=== PATIENT | male | born 1965 | race Caucasian/White ===

== ENCOUNTER 2023-06-11 07:55 | Outpatient (OUT) | payer BC, SELFPAY ==
[2023-06-11 08:14] LABS: Basophils Absolute Auto 0.1 10^3/uL (0.0-0.1); Basophils Percent Auto 0.9 % (0.2-2.0); Eosinophils Absolute Auto 0.4 10^3/uL (0.0-0.7); Eosinophils Percent Auto 5.3 % (0.9-7.0); Hematocrit 40.3 % (42.0-54.0); Hemoglobin 14.1 g/dL (14.0-18.0); Immature Granulocytes Abs Auto 0.01 10^3/uL (0.00-0.03); Immature Granulocytes Pct Auto 0.1 % (0.0-0.5); Lymphocytes Absolute Auto 2.4 10^3/uL (1.2-3.8); Lymphocytes Percent Auto 31.2 % (20.5-60.0); Mean Corpuscular Hemoglobin 31.9 pg (25.9-34.0); Mean Corpuscular Volume 91.2 fL (80.0-94.0); Mean Platelet Volume 10.2 fL (9.5-13.5); Monocytes Absolute Auto 0.8 10^3/uL (0.3-0.8); Monocytes Percent Auto 9.7 % (1.7-12.0); Neutrophils Absolute Auto 4.1 10^3/uL (1.4-6.5); Neutrophils Percent Auto 52.8 % (43.0-75.0); Platelet Count 172 10^3/uL (150-450); Red Blood Count 4.42 10^6/uL (4.70-6.10); Red Cell Distribution Width 13.4 % (11.0-15.0); White Blood Count 7.8 10^3/uL (4.0-11.0)
[2023-06-11 09:19] LABS: Prostate Specific Antigen Scrn 1.24 ng/mL (<=4.00)
[2023-06-11 09:22] LABS: Alanine Aminotransferase 23 U/L (16-63); Albumin Globulin Ratio 1.2; Albumin Level 3.7 g/dL (3.4-5.0); Alkaline Phosphatase 89 U/L (46-116); Anion Gap 10.4; Aspartate Amino Transferase 17 U/L (15-37); BUN Creatinine Ratio 13.6; Bilirubin Total 0.4 mg/dL (0.2-1.0); Calcium 8.5 mg/dL (8.5-10.1); Chloride 104 mmol/L (98-107); Chol HDL Ratio 4.9; Cholesterol 181 mg/dL (<=200); Estimated GFR (African America >60 (>=60); Estimated GFR (Non-African Ame >60 (>=60); Globulin 3.2 g/dL; Glucose 113 mg/dL (74-106); HDL Cholesterol 37 mg/dL (40-60); Potassium 4.4 mmol/L (3.5-5.1); Sodium 138 mmol/L (136-145); Total Protein 6.9 g/dL (6.4-8.2); Triglycerides 123 mg/dL (<=150); VLDL CHOLESTEROL 24.6 mg/dL
== END 2023-06-11 07:56 | disposition home or self-care (01) ==
LOC: LAB 07:59
PROVIDERS: PCP Internal Medicine; Visit Provider Family Medicine Adult Medicine
DX: Z00.00 Encounter for general adult medical examination without abnormal findings (principal); Z12.5 Encounter for screening for malignant neoplasm of prostate
CPT/HCPCS: 36415; 80053; 80061; 85025; G0103

== ENCOUNTER 2024-01-29 09:04 | Outpatient (OUT) | payer BC, SELFPAY ==
--- NOTE | 2024-01-29 09:51 | US_ITS ---
[place] [id number] Patient Name: UMAIR HANCOCK MRN: [id number] date: 1965 Sex: M Assigned Patient Location: MRI Current Patient Location: MRI Accession/Order Number: [id number] Exam Date: 01/29/2024 11:00 Report Date: 01/29/2024 13:56 At the request of: CHINYERE YOUNGBLOOD Procedure: US carotid duplex BI EXAMINATION: US carotid duplex BI HISTORY: bruit of right carotid artery R09.89 COMPARISON: No relevant comparison available. TECHNIQUE: Duplex Doppler ultrasound analysis of carotid and vertebral arteries. . Bilateral carotid arterial duplex examination was performed using B-mode, color flow and spectral analysis. Carotid stenosis is reported according to validated velocity parameters, similar to NASCET criteria. FINDINGS: RIGHT CAROTID ARTERY Mild atherosclerotic plaque Subclavian: PSV: 190.4 cm/s cm/s EDV: 19.1 cm/s cm/s CCA: Prox: PSV: 104.3 cm/s cm/s EDV: 30.0 cm/s cm/s Mid: PSV: 61.2 cm/s cm/s EDV: 14.4 cm/s cm/s Distal: PSV: 75.8 cm/s cm/s EDV: 16.0 cm/s cm/s BULB: PSV: 53.7 cm/s cm/s EDV: 14.2 cm/s cm/s ICA: Prox: PSV: 64.6 cm/s cm/s EDV: 12.8 cm/s cm/s Mid: PSV: 69.8 cm/s cm/s EDV: 28.3 cm/s cm/s Distal: PSV: 101.6 cm/s cm/s EDV: 35.4 cm/s cm/s ECA: PSV: 95.1 cm/s cm/s EDV: 16.0 cm/s cm/s VERTEBRAL: PSV: 42.8 cm/s cm/s EDV: 13.1 cm/s cm/s, antegrade ICA/CCA ratio: PSV: 1.3 EDV: 2.2 LEFT CAROTID ARTERY mild atherosclerotic plaque Subclavian: PSV: 148.5 cm/s cm/s EDV: 6.7 cm/s CCA: Prox: PSV: 92.7 cm/s cm/s EDV: 25.3 cm/s Mid: PSV: 75.8 cm/s cm/s EDV: 22.5 cm/s Distal: PSV: 67.7 cm/s cm/s EDV: 25.7 cm/s BULB: PSV: 64.5 cm/s cm/s EDV: 17.6 cm/s ICA: Prox: PSV: 83.8 cm/s cm/s EDV: 28.9 cm/s Mid: PSV: 72.5 cm/s cm/s EDV: 28.9 cm/s Distal: PSV: 80.6 cm/s cm/s EDV: 27.3 cm/s ECA: PSV: 61.2 cm/s cm/s EDV: 11.1 cm/s VERTEBRAL: PSV: 43.9 cm/s cm/s EDV: 10.9 cm/s , antegrade ICA/CCA ratio: PSV: 1.1 EDV: 1.3 US/US carotid duplex BI IMPRESSION: 0-49% flow stenosis bilateral internal carotid arteries Spectral Doppler US Thresholds (Reference: Tang EG, et al. Radiology 2000; 214:247-252) Stenosis (%) PSV (cm/sec) VICA/VCCA 0-49 <150 <2.5 50-69 150-225 2.5-4.0 >70 >225 >4.0 Electronically authenticated by: YAS MEJIAS Date: 01/29/2024 13:56
--- NOTE | 2024-01-29 09:52 | MR_ITS ---
The [address] [address] Patient Name: UMAIR HANCOCK MRN: [id number] date: 1965 Sex: M Assigned Patient Location: MRI Current Patient Location: MRI Accession/Order Number: [id number] Exam Date: 01/29/2024 10:00 Report Date: 01/29/2024 13:30 At the request of: CHINYERE YOUNGBLOOD Procedure: MR angio head wo con MR angio head wo con HISTORY: bruit of right carotid artery R09.89 COMPARISON: None. TECHNIQUE: 3D unwo-fo-haumtr angiography was performed in the axial plane on the [place] without IV gadolinium. The exam was tailored for assessment of the [place] only. Only limited sequences were obtained of the rest of the brain. FINDINGS: Carotids: Negative. Anterior/posterior communicating arteries: Negative. Anterior cerebral arteries: Negative. Middle cerebral arteries: Negative. Posterior cerebral arteries: Negative. Intracranial vertebral arteries: Negative. Basilar artery: Negative. PICA/AICA/SCA: Negative. Non-angiographic Findings: None significant. MR/MR angio head wo con IMPRESSION: 1. No evidence of large vessel occlusion, flow-limiting intracranial stenosis or aneurysm. Electronically authenticated by: ROMA KIRKLAND Date: 01/29/2024 13:30
== END 2024-01-29 09:05 | disposition home or self-care (01) ==
LOC: MRI 09:04
PROVIDERS: PCP Internal Medicine; Visit Provider Internal Medicine
DX: R09.89 Other specified symptoms and signs involving the circulatory and respiratory systems (principal); R20.0 Anesthesia of skin; R20.2 Paresthesia of skin; R20.8 Other disturbances of skin sensation
CPT/HCPCS: 70544; 70551; 93880

== ENCOUNTER 2024-02-01 10:09 | Outpatient (OUT) | payer BC, SELFPAY ==
[2024-02-01 07:09] LABS: Basophils Absolute Auto 0.1 10^3/uL (0.0-0.1); Eosinophils Absolute Auto 0.3 10^3/uL (0.0-0.7); Eosinophils Percent Auto 3.6 % (0.9-7.0); Hematocrit 38.8 % (42.0-54.0); Hemoglobin 13.1 g/dL (14.0-18.0); Immature Granulocytes Abs Auto 0.03 10^3/uL (0.00-0.03); Immature Granulocytes Pct Auto 0.4 % (0.0-0.5); Lymphocytes Absolute Auto 2.3 10^3/uL (1.2-3.8); Lymphocytes Percent Auto 28.2 % (20.5-60.0); Mean Corpuscular HGB Conc 33.8 g/dL (29.9-35.2); Mean Corpuscular Hemoglobin 31.3 pg (25.9-34.0); Mean Corpuscular Volume 92.6 fL (80.0-94.0); Mean Platelet Volume 9.5 fL (9.5-13.5); Monocytes Absolute Auto 0.8 10^3/uL (0.3-0.8); Monocytes Percent Auto 10.2 % (1.7-12.0); Neutrophils Absolute Auto 4.6 10^3/uL (1.4-6.5); Neutrophils Percent Auto 56.6 % (43.0-75.0); Platelet Count 186 10^3/uL (150-450); Red Blood Count 4.19 10^6/uL (4.70-6.10); Red Cell Distribution Width 12.9 % (11.0-15.0); White Blood Count 8.1 10^3/uL (4.0-11.0)
[2024-02-01 07:23] LABS: Alanine Aminotransferase 31 U/L (16-63); Albumin Globulin Ratio 0.9; Albumin Level 3.3 g/dL (3.4-5.0); Alkaline Phosphatase 105 U/L (46-116); Anion Gap 13.5; Aspartate Amino Transferase 18 U/L (15-37); BUN Creatinine Ratio 14.8; Bilirubin Total 0.5 mg/dL (0.2-1.0); Calcium 8.9 mg/dL (8.5-10.1); Carbon Dioxide 25.8 mmol/L (21.0-32.0); Chloride 102 mmol/L (98-107); Chol HDL Ratio 4.1; Cholesterol 189 mg/dL (<=200); Estimated GFR (African America >60 (>=60); Estimated GFR (Non-African Ame >60 (>=60); Globulin 3.7 g/dL; Glucose 103 mg/dL (74-106); HDL Cholesterol 46 mg/dL (40-60); LDL Cholesterol Calculated 128.4 mg/dL; Potassium 4.3 mmol/L (3.5-5.1); Sodium 137 mmol/L (136-145); Triglycerides 73 mg/dL (<=150); VLDL CHOLESTEROL 14.6 mg/dL
== END 2024-02-01 10:10 | disposition home or self-care (01) ==
LOC: LAB 02-02 10:09
PROVIDERS: PCP Internal Medicine; Visit Provider Internal Medicine
DX: R09.89 Other specified symptoms and signs involving the circulatory and respiratory systems (principal); R20.0 Anesthesia of skin; R20.2 Paresthesia of skin; R20.8 Other disturbances of skin sensation
CPT/HCPCS: 36415; 80053; 80061; 85025

== ENCOUNTER 2024-02-12 10:05 | Outpatient (OUT) | payer BC, SELFPAY ==
--- NOTE | 2024-02-12 10:14 | XR_ITS ---
The [address] [address] Patient Name: UMAIR HANCOCK MRN: [id number] date: 1965 Sex: M Assigned Patient Location: [facility] Current Patient Location: Accession/Order Number: [id number] Exam Date: 02/12/2024 10:20 Report Date: 02/14/2024 05:20 At the request of: CHINYERE YOUNGBLOOD Procedure: XR cervical spine w flex/ext EXAMINATION: XR cervical spine w flex/ext HISTORY: Neck Pain M54.2 , right hand numbness, stinging sensation posterior neck COMPARISON: No relevant comparison available. FINDINGS: BONES: No significant spondylosis, scoliosis, fracture, or visible bony lesion. No change in alignment during flexion and extension. DISC SPACES: Mild/moderate narrowing C5-C6. Mild uncovertebral joint spurring causing mild foramen narrowing C5-C6, C6-C7. PARASPINOUS: Negative. No paraspinous abnormality is seen. OTHER: Negative. XR/XR cervical spine w flex/ext IMPRESSION: 1. Mild degenerative changes of cervical spine, predominantly involving C5-C6 and C6-7. Electronically authenticated by: ISRAEL MOHR Date: 02/14/2024 05:20
== END 2024-02-12 10:06 | disposition home or self-care (01) ==
PROVIDERS: PCP Internal Medicine; Visit Provider Internal Medicine
DX: M54.2 Cervicalgia (principal)
CPT/HCPCS: 72052

== ENCOUNTER 2024-03-03 20:48 | Inpatient (IN) | payer BC, SELFPAY ==
[2024-03-03] VITALS (16 sets, daily range): BP systolic 165–198; BP diastolic 94–104; PULSE 67–87; TEMP 36.6; O2SAT 95–98; BMI 18.7
--- OUTSIDE RECORDS SUMMARY | 2024-03-03 20:56 | XMS_ITS | CCD ---
Author Organization [facility] Care Team Providers Care Emergency Man Name Role Phone DR HARVEY STOVER Admitting Unavailable RYLIE, DR WHITLOCK Attending Unavailable RYLIE, DR WHITLOCK Primary Care Unavailable RYLIE, DR WHITLOCK Consulting Unavailable Lali Ramon Unavailable Harvey Stover Unavailable REGULO HENRY Attending Unavailable REGULO HENRY Attending Unavailable DO Harvey Stover Primary Care Provider [phone] DO Harvey Stover Attending Provider [phone] Harvey Stover Admitting Unavailable Harvey Stover Attending Unavailable Harvey Stover Primary Care Unavailable Medications Current Medications Medication Drug Class(es) Dates Sig (Normalized) Sig (Original) gabapentin 300 mg oral capsule (5 sources) Anti-epileptic Agent Start: 12-21-2023 take 300 mg by mouth twice daily Gabapentin Active 300 MG PO Twice daily December 21, 2023 12:00am Start: 12-25-2022 take 1 capsule by mo uth twice daily Gabapentin 300 MG 1 capsule Orally twice daily Dec, Active Start: 12-25-2022 take 1 capsule by mo uth once at bedtime Gabapentin 300 MG 1 capsule Orally q HS for 30 days Dec, Active nabumetone 750 mg oral tablet (5 sources) Nonsteroidal Anti-inflammatory Drug Start: 12-21-2023 take 750 mg by mouth twice daily Nabumetone Active 750 MG PO Twice daily December 21, 2023 12:00am take 750 mg by mouth twice daily Nabumetone 750 MG as directed Orally Twice a day Active predniSONE 20 mg oral tablet (4 sources) Start: 01-12-2024 Prednisone Act nydia 20 MG PO As Directed January 12, 2024 12:00am 1 tab tid w/ food x 3 days, then bid w/ food x 3 days, then qd w/ food x 3 days Start: 12-25-2022 predniSONE 20 MG 1 tablet Orally tid w/ food x 3 days, then bid w/ food x 3 days, then qd w/ food x 3 days for 9 days Dec, Not-Taking rosuvastatin calcium 20 mg oral tablet (1 source) HMG-CoA Reductase Inhibitor Start: 01-12-2024 take 20 mg by mouth once daily Rosuvastatin Active 20 MG PO Daily January 12, 2024 12:00am sildenafil 100 mg oral tablet (7 sources) Phosphodiesterase 5 Inhibitor Start: 12-21-2023 End: 12-21-2023 take 0.5-1 tablets by mouth once daily as needed Sildenafil Active 100 MG PO Once 6 December 21, 2023 1:23pm 1/2 to 1 tablet Orally Once a day, PRN ED Start: 12-25-2022 take 0.5-1 tablets b y mouth once daily as needed Sildenafil Citrate 100 MG 1/2 to 1 tablet Orally Once a day, PRN ED for 30 days Dec, Active Completed/Discontinued Medications Medication Drug Class(es) Dates Sig (Normalized) Sig (Original) penicillin v potassium 500 mg oral tablet (4 sources) Start: 05-16-2022 take 1 tablet by mouth every twelve hours Penicillin V Potassium 500 MG 1 tablet Orally Twice a day for 10 day(s) May, Not-Taking Problems Active Problems Problem Classification Problem Date Documented Date Episodic/Chronic Chronic obstructive pulmonary disease and bronchiectasis (5 sources) Mucopurulent chronic bronchitis; Translations: [Mucopurulent chronic bronchitis] Chronic Essential hypertension (2 sources) Hypertensive disorder; Translations: [Essential (primary) hypertension] 01-12-2024 Chronic Immunizations and screening for infectious disease (1 source) Encounter for immunization; Translations: [ENCOUNTER FOR IMMUNIZATION] Onset: 07-05-2021 Episodic Inflammation; infection of eye (except that caused by tuberculosis or sexually transmitteddisease) (2 sources) Unspecified optic neuritis; Translations: [Unspecified optic neuritis] Onset: 03-19-2023 Chronic Other aftercare (1 source) 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; Translations: [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 CURRENT DRUG THERAPY] Onset: 07-05-2021 Episodic Other circulatory disease (1 source) Carotid bruit; Translations: [Other specified symptoms and signs involving the circulatory and respiratory systems] 01-12-2024 Episodic Other circulatory disease (2 sources) Other specified symptoms and signs involving the circulatory and respiratory systems; Translations: [Other symptoms involving cardiovascular system] Onset: 01-22-2024 01-12-2024 Episodic Other male genital disorders (3 sources) Erectile dysfunction co-occurrent and due to arterial insufficiency; Translations: [Erectile dysfunction due to arterial insufficiency] Chronic Other male genital disorders (2 sources) Erectile dysfunction due to arterial insufficiency Chronic Other nervous system disorders (1 source) Dysesthesia of face; Translations: [Other disturbances of skin sensation] 01-12-2024 Episodic Other nervous system disorders (1 source) Paresthesia of upper limb; Translations: [Anesthesia of skin] 01-12-2024 Episodic Other nervous system disorders (1 source) Paresthesia of lower extremity; Translations: [Anesthesia of skin] 01-12-2024 Episodic Other nervous system disorders (3 sources) Anesthesia of skin; Translations: [Disturbance of skin sensation] Onset: 01-22-2024 01-12-2024 Episodic Other nervous system disorders (1 source) Paresthesia of skin; Translations: [Paresthesia of skin] Onset: 01-22-2024 Episodic Other nervous system disorders (1 source) Other disturbances of skin sensation; Translations: [Other disturbances of skin sensation] Onset: 01-22-2024 Episodic Other screening for suspected conditions (not mental disorders or infectious disease) (2 sources) Encounter for screening for malignant neoplasm of prostate; Translations: [Encounter for screening for malignant neoplasm of colon] Episodic Residual codes; unclassified (1 source) Pain, unspecified; Translations: [PAIN UNSPECIFIED] Onset: 07-05-2021 Episodic Rheumatoid arthritis and related disease (11 sources) Rheumatoid arthritis of wrist; Translations: [Rheumatoid arthritis with rheumatoid factor of right wrist without organ or systems involvement] Chronic Spondylosis; intervertebral disc disorders; other back problems (11 sources) Cervical spondylosis; Translations: [Other spondylosis with radiculopathy, cervical region] Chronic Spondylosis; intervertebral disc disorders; other back problems (3 sources) Low back pain; Translations: [Radiculopathy, lumbar region] 01-12-2024 Episodic Substance-related disorders (7 sources) Nicotine dependence; Translations: [Nicotine dependence, cigarettes, uncomplicated] Chronic Unclassified (1 source) Low back pain, unspecified; Translations: [Low back pain, unspecified] Onset: 03-19-2023 Viral infection (4 sources) COVID-19; Translations: [COVID-19] Onset: 07-03-2021 Past or Other Problems Problem Classification Problem Date Documented Da te Episodic/Chronic Disorders of teeth and jaw (1 source) Periapical abscess without sinus Onset: 05-16-2022 Resolved: 05-16-2022 Episodic Unclassified (1 source) Low back pain, unspecified; Translations: [Low back pain, unspecified] Onset: 03-19-2023 Results Test Name Value Interpretation Reference Range Facility ECG 12 lead ECGon 01-22-2024 ECG 12 lead ECG [facility] Main [place] [id number] Electrocardiograph Report Signed Patient: Jordan Aguilar MR#: [id number] : 1965 Acct:[id number] Age/Sex: 58 / M ADM Date: 01/22/24 Loc: Room: Type: [facility] Attending Dr: Harvey Stover DO Ordering Provider: Harvey Stover DO Date of Service: 01/22/24 ECG/ECG 12 lead ECG: R20.8 - Other disturbances of skin sensation Copies to: Test Reason : Blood Pressure : / mmHG Vent. Rate : 081 BPM Atrial Rate : 081 BPM P-R Int : 148 ms QRS Dur : 104 ms QT Int : 390 ms P-R-T Axes : 084 059 074 degrees QTc Int : 453 ms Normal sinus rhythm Incomplete right bundle branch block Borderline ECG No previous ECGs available Confirmed by Harry Auguste ([id number]) on 01/23/2024 11:28:13 AM Referred By: RYLIE Electronically Signed By:Harry Auguste Transcribed By: MUS Signed By Harry Auguste MD 01/23/24 1128 Normal [facility] echo transthoracicon [facility] echo transthoracic [facility] Main [address] [address] Echocardiogram Signed Patient: Jordan Aguilar MR#: [id number] : 1965 Acct:[id number] Age/Sex: 58 / M ADM Date: 01/22/24 Loc: Room: Type: [facility] Attending Dr: Harvey Stover DO Ordering Provider: Harvey Stover DO Date of Service: 01/22/24 [facility] echo transthoracic: R20.8 - Other disturbances of skin sensation Copies to: DO Edelmira Flores MD BSA: 1.7 m2 BP: 157/101 mmHg HR: 77 Reason For Study: R20.8 - Other disturbances of skin sensation, Numbness of right arrm and right leg History: Smoker, COVID Interpretation Summary Ejection Fraction = 60-65%. The left ventricular wall motion is normal. There is trace tricuspid regurgitation. Atrial septum appears to be intact and there is no evidence of flow across the atrial septum either by colorflow Doppler or by agitated saline. There is no comparison study available. Procedure/Quality: A two-dimensional transthoracic echocardiogram with color flow, Doppler and injection of aggitated saline was performed. The study was technically good in quality. Left Ventricle: The left ventricular size is normal. The left ventricular thickness is normal. Ejection Fraction = 60-65%. The left ventricular wall motion is normal. Left Atrium: The left atrium appears normal in size. Atrial septum appears to be intact and there is no evidence of flow across the atrial septum either by colorflow Doppler or by agitated saline. Right Atrium: The right atrium appears normal in size. Right Ventricle: The right ventricle is normal in size and function. Aortic Valve: The aortic valve is trileaflet. The aortic valve is normal in structure. No hemodynamically significant valvular aortic stenosis. No aortic regurgitation is present. Mitral Valve: The mitral valve is normal in structure. No significant mitral valve stenosis. There is no mitral regurgitation noted. Tricuspid Valve: The tricuspid valve is normal in structure. There is trace tricuspid regurgitation. Pulmonic Valve: The pulmonic valve is not well visualized. No significant pulmonic regurgitation. Arteries: The aortic root is normal size. Pericardium/Pleura: No pericardial effusion seen. There is no pleural effusion. IVC/Hepatic Veins: The inferior vena cava is normal in size, with a normal collapsibility index. Measurements with Normals IVSd: 0.88 cm (0.7-1.1 cm)LVIDd: 4.2 cm (3.7-5.4 cm) LVPWd: 0.95 cm (0.7-1.1 cm)LVIDs: 2.6 cm (2.3-3.6 cm) LA dimension: 3.2 cm (2.3-4.0 cm)Ao root diam: 3.2 cm(2.0-3.6 cm) asc Aorta Diam: 3.3 cm(2.1-3.4cm) Doppler with Normals RVSP(TR): 33.0 mmHg (18-35mmHg) LV V1 max: 111.1 cm/sec (0.7-1.7m/s)MV E max hussein: 78.8 cm/sec(0.8-1.3m/s) MV A max hussein: 92.1 cm/sec(0.0-0.0m/s) MV E/A: 0.86 (<1.5) MMode/2D Measurements Calculations RVDd: 1.8 cm FS: 38.4 % Ao root area: LVOT diam: 2.0 cm TAPSE: 2.1 cm EDV(Teich): 7.8 cm2 LVOT area: 3.0 cm2 RV S Hussein: 80.5 ml 17.1 cm/sec ESV(Teich): 24.9 ml EF(Teich): 69.1 % __ LVLd ap4: 8.6 cm SV(MOD-sp4): LAV(MOD-sp4): LA A2 area: 19.1 cm2 EDV(MOD-sp4): 47.5 ml 20.8 ml 70.8 ml LAV(MOD-sp2): LA A4 area: 10.8 cm2 LVLs ap4: 6.8 cm 54.2 ml LA length (vol): ESV(MOD-sp4): 4.5 cm 23.3 ml LA vol: 39.3 ml EF(MOD-sp4): 67.1 % LA vol index: 22.6 ml/m2 Doppler Measurements Calculations MV dec time: MV max PG: E/E' lat: 3.7 MV dec slope: 0.20 sec 20.0 mmHg E/E' med: 6.6 392.8 cm/sec2 __ Ao V2 max: LV V1 max PG: MR max hussein: TV max P.0 mmHg 180.5 cm/sec 4.9 mmHg 225.3 cm/sec Ao max PG: LV V1 mean PG: MR max P.0 mmHg 2.9 mmHg 20.3 mmHg Ao mean PG: LV V1 mean: 5.8 mmHg 80.0 cm/sec Ao V2 mean: LV V1 VTI: 21.5 cm 113.2 cm/sec Ao V2 VTI: 34.1 cm LETICIA(I,D): 1.9 cm2 LETICIA(V,D): 1.9 cm2 __ TR max hussein: 264.7 cm/sec TR max P.0 mmHg RAP systole: 5.0 mmHg Transcribed By: PAT Performed At: 01/22/24 0834 Signed By: Edelmira Plascencia MD 01/22/24 2246 [facility] 36on 12-21-2023 36 PT calling for refills on Gabapentin and Relafen: Last visit: 09/15/23 Next visit: 03/07/24 CBC/CMP: 12/18/22 [facility] Refillon 12-21-2023 Refill [id number] Jordan Aguilar 1965 [facility] Provider Department Center 12/21/[address] [facility] RHEUM Zaida Heal Family History Problem Relation Age of Onset Hypertension Mother Hypertension Sister Family Status - Relation Status Age at Mother Sister [facility] Follow-Upon 09-15-2023 Follow-Up [id number] Jordan Aguilar 1965 [facility] Provider Department Center 09/15/[address] [facility] RHEUM Zaida Heal Family History Problem Relation Age of Onset Hypertension Mother Hypertension Sister Family Status - Relation Status Age at Mother Sister Level of Service:10866 MO OFFICE/OUTPATIENT ESTABLISHED LOW MDM 20-29 MIN () Reason for Visit and Comments: Follow-up [504106] [facility] 36on 03-19-2023 36 Pharmacy called to request clarification on the Gabapentin 500 mg order - it reads one cap three times a day and one cap at bedtime. Do you mean four times a day? Please Advise [facility] Follow-Upon 03-19-2023 Follow-Up [id number] Jordan Aguilar 1965 Provider Department Center 03/19/[address] [facility] RHEUM Zaida Heal Family History Problem Relation Age of Onset Hypertension Mother Hypertension Sister Family Status - Relation Status Age at Mother Sister Level of Service:73609 MO OFFICE/OUTPATIENT ESTABLISHED LOW MDM 20-29 MIN Reason for Visit and Comments: Follow-up [656767] - 3 month follow up [facility] Telephoneon 03-19-2023 Telephone [id number] Jordan Aguilar 1965 Provider Department Center 03/19/2023 MEME ONTIVEROS C RHEUM Zaida Heal Family History Problem Relation Age of Onset Hypertension Mother Hypertension Sister Family Status - Relation Status Age at Mother Sister [facility] 36on 02-11-2023 36 300 mg TAKE 1 CAPSULE BY MOUTH AT BEDTIME [facility] Orders Onlyon 02-11-2023 Orders Only [id number] Jordan Aguilar 1965 Provider Department Center 02/11/2023 OLIVER RAMIREZ C RHEUM Zaida Heal Family History Problem Relation Age of Onset Hypertension Mother Hypertension Sister Family Status - Relation Status Age at Mother Sister [facility] 36on 02-10-2023 36 Pt called and stated he need refill on Gabapentin. It was last filled on 12/25/2022 by PCP. Pt stated you were prescribing this medication awhile back. [facility] Telephoneon 02-10-2023 Telephone [id number] Jordan Aguilar 1965 Provider Department Center 02/10/[address] [facility] RHEUM Zaida Heal Family History Problem Relation Age of Onset Hypertension Mother Hypertension Sister Family Status - Relation Status Age at Mother Sister Reason for Visit and Comments: Med Refill [[id number]] Normal [facility] C REACTIVE PROTEINon CRP [Mass/Vol] 5.1 mg/L Normal 0.0-7.0 [facility] Comment on above: Performed By: #### 6 1405 #### [facility] [address] SEDIMENTATION RATEon SED RATE 5 mm/hr Normal 0-10 [facility] Comment on above: Performed By: #### 5 6506 #### [facility] [address] [place] [address], [facility] CBC W/DIFFon 03-11-2021 ABS IMM GRANS 0.0 10*3/uL Normal 0.0-0.2 [facility] Comment on above: Performed By: #### 5 0103 #### [facility] [address] [place] [address], [facility] ABS NEUTROPHILS 4.7 10*3/uL Normal 1.6-7.6 [facility] Comment on above: Performed By: #### 5 0103 #### [facility] [address] [place] [address], [facility] Basophils (Bld) [#/Vol] 0.1 10*3/uL Normal 0.0-0.2 [facility] Comment on above: Performed By: #### 5 0103 #### [facility] [address] [place] [address], [facility] Basophils/100 WBC (Bld) 0.8 % Normal 0.0-1.0 [facility] Comment on above: Performed By: #### 5 0103 #### [facility] [address] [place] [address], [facility] Eosinophils (Bld) [#/Vol] 0.1 10*3/uL Normal 0.0-0.5 [facility] Comment on above: Performed By: #### 5 0103 #### [facility] [address] [place] [address], [facility] Eosinophils/100 WBC (Bld) 1.4 % Normal 0.0-6.0 [facility] Comment on above: Performed By: #### 5 3 #### [facility] [address] [place] [address], [facility] Erythrocyte distribution width (RBC) [Ratio] 13.2 % Normal 11.5-15.0 [facility] Comment on above: Performed By: #### 3 #### [facility] [address] [facility] [place] [address], [facility] Hematocrit (Bld) [Volume fraction] 42.0 % Normal 39.0-50.0 [facility] Comment on above: Performed By: #### 102 #### [facility] [address] [place] [address], [facility] Hemoglobin (Bld) [Mass/Vol] 14.5 g/dL Normal 13.0-17.0 [facility] Comment on above: Performed By: #### 5 3 #### [facility] [address] [place] [address], [facility] IMMATURE GRANS 0.4 % Normal 0.0-1.0 [facility] Comment on above: Performed By: #### 5 3 #### [facility] [address] [facility] [place] [address], [facility] Lymphocytes (Bld) [#/Vol] 2.8 10*3/uL Normal 1.2-4.0 [facility] Comment on above: Performed By: #### 5 0103 #### [facility] [address] [place] [address], [facility] Lymphocytes/100 WBC (Bld) 32.7 % Normal 20.0-45.0 [facility] Comment on above: Performed By: #### 5 3 #### [facility] [address] [place] [address], [facility] MCH (RBC) [Entitic mass] 31.4 pg Normal 27.0-33.0 [facility] Comment on above: Performed By: #### 5 0103 #### [facility] [address] [place] [address], [facility] MCHC (RBC) [Mass/Vol] 34.5 g/dL Normal 32.0-35.0 [facility] Comment on above: Performed By: #### 5 0103 #### [facility] [address] [place] [address], [facility] MCV (RBC) [Entitic vol] 90.9 fL Normal 82.0-98.0 [facility] Comment on above: Performed By: #### 102 #### [facility] [address] [place] [address], [facility] Monocytes (Bld) [#/Vol] 0.8 10*3/uL Normal 0.1-1.0 [facility] Comment on above: Performed By: #### 5 3 #### [facility] [address] MONOS 8.8 % Normal 5.0-12.0 [facility] Comment on above: Performed By: #### 5 3 #### [facility] [address] [facility]. [address] Neutrophils/100 WBC (Bld) 55.9 % Normal 40.0-72.0 [facility] Comment on above: Performed By: #### 5 3 #### [facility] [address] [place] [address], [facility] Nucleated RBC/100 WBC (Bld) [Ratio] 0 % Normal 0-0 [facility] Comment on above: Performed By: #### 5 3 #### [facility] [address] [place] [address], [facility] PLAT CNT 175 10*3/uL Normal 150-400 [facility] Comment on above: Performed By: #### 5 3 #### [facility] [address] [place] [address], [facility] RBC (Bld) [#/Vol] 4.62 10*6/uL Normal 4.20-5.[address] [facility] Comment on above: Performed By: #### 5 102 #### [facility] [address] [facility] [place] [address], [facility] WBC (Bld) [#/Vol] 8.48 10*3/uL Normal 4.00-10.[address] [facility] Comment on above: Performed By: #### 5 102 #### [facility] [address] COMP METABOLIC PANELon 03-11 Albumin [Mass/Vol] 4.6 g/dL Normal 3.5-5.7 [facility] Comment on above: Performed By: #### 0 0121 #### [facility] [address] ALKALINE PHOSPH 71 IU/L Normal 34-104 [facility] Comment on above: Performed By: #### 0 0121 #### [facility] [address] [facility]. [address] ALT [Catalytic activity/Vol] 8 U/L Normal 7-52 [facility] Comment on above: Performed By: #### 0 0121 #### [facility] [address] AST [Catalytic activity/Vol] 14 U/L Normal 13-39 [facility] Comment on above: Performed By: #### 0 0121 #### [facility] [address] [facility] [place] [place] [address], [place] Bilirubin [Mass/Vol] 0.5 mg/dL Normal 0.3-1.0 [facility] Comment on above: Performed By: #### 0 0121 #### [facility] [address] [place] [address], [place] Calcium [Mass/Vol] 9.4 mg/dL Normal 8.6-10.3 [facility] Comment on above: Performed By: #### 0 0121 #### [facility] [address] [place] [address], [place] Chloride [Moles/Vol] 103 mmol/L Normal 98-107 [facility] Comment on above: Performed By: #### 0 0121 #### [facility] [address] [place] [address], [place] CO2 [Moles/Vol] 28 mmol/L Normal 21-31 [facility] Comment on above: Performed By: #### 0 0121 #### [facility] [address] [place] [address], [place] Creatinine [Mass/Vol] 0.81 mg/dL Normal 0.70-1.30 [facility] Comment on above: Performed By: #### 0 0121 #### [facility] [address] [place] [address], [place] GFR/1.73 sq M.predicted among blacks MDRD (S/P/Bld) [Vol rate/Area] mL/min/{1.73_m2} Normal >60 [facility] Comment on above: Performed By: #### 0 0121 #### [facility] [address] [place] [address], [place] GFR/1.73 sq M.predicted among non-blacks MDRD (S/P/Bld) [Vol rate/Area] mL/min/{1.73_m2} Normal >60 [facility] Comment on above: Performed By: #### 0 0121 #### [facility] [address] [place] [address], [place] Glucose [Mass/Vol] 101 mg/dL High 70-100 [facility] Comment on above: Performed By: #### 0 0121 #### [facility] [address] [place] [address], [place] Potassium [Moles/Vol] 5.1 mmol/L Normal 3.5-5.1 [facility] Comment on above: Performed By: #### 0 0121 #### [facility] [address] [place] [address], [place] Protein [Mass/Vol] 7.1 g/dL Normal 6.0-8.3 [facility] Comment on above: Performed By: #### 0 0121 #### [facility] [address] [place] [address], [place] Sodium [Moles/Vol] 137 mmol/L Normal 136-145 [facility] Comment on above: Performed By: #### 0 0121 #### [facility] [address] [place] [address], [place] Urea nitrogen [Mass/Vol] 12 mg/dL Normal 7-25 [facility] Comment on above: Performed By: #### 0 0121 #### [facility] [address] [place] [address], [facility] Vital Signs Date Time Vital Sign Value Performing Clinician Facility 01-12-2024 13: Body height 177.8 cm [facility] 01-12-2024 13: Body mass index (BMI) [Ratio] 18.5 kg/m2 [facility] 01-12-2024 13: Body weight 58.57 kg [facility] 01-12-2024 13:29 Diastolic blood pressure 90 mm[Hg] [facility] 01-12-2024 13: Heart rate 81 /min [facility] 01-12-2024 13:29-0400 Respiratory rate 12 /min [facility] 01-12-2024 13:29-0400 Systolic blood pressure 146 mm[Hg] [facility] 06-10-2023 08:30-0400 Body height 177.8 cm Harvey Ball Other [facility] Other 06-10-2023 08:30-0400 Body mass index (BMI) [Ratio] 18.42 kg/m2 Harvey Ball Other [facility] Other 06-10-2023 08:30-0400 Body weight 58.24 kg Harvey Ball Other [facility] Other 06-10-2023 08:30-0400 Diastolic blood pressure 75 mm[Hg] Harvey Ball Other [facility] Other 06-10-2023 08:30-0400 Respiratory rate 12 /min Harvey Ball Other [facility] Other 06-10-2023 08:30-0400 Systolic blood pressure 149 mm[Hg] Harvey Ball Other [facility] Other 12-25-2022 09:45-0400 Body height 177.8 cm Harvey Ball Other [facility] Other 12-25-2022 09:45-0400 Body mass index (BMI) [Ratio] 18.85 kg/m2 Harvey Ball Other [facility] Other 12-25-2022 09:45-0400 Body weight 59.6 kg Harvey Ball Other [facility] Other 12-25-2022 09:45-0400 Diastolic blood pressure 87 mm[Hg] Harvey Ball Other [facility] Other 12-25-2022 09:45-0400 Respiratory rate 16 /min Harvey Ball Other [facility] Other 12-25-2022 09:45-0400 Systolic blood pressure 132 mm[Hg] Harvey Ball Other [facility] Other 05-16-2022 11:20-0400 Body height 177.8 cm Lali Ramon Other [facility] Other 05-16-2022 11:20-0400 Body mass index (BMI) [Ratio] 17.22 kg/m2 Lali Ramon Other [facility] Other 05-16-2022 11:20-0400 Body temperature 98 [degF] Lali Ramon Other [facility] Other 05-16-2022 11:20-0400 Body weight 54.43 kg Lali Ramon Other [facility] Other 05-16-2022 11:20-0400 Diastolic blood pressure 93 mm[Hg] Lali Bajwaler Other [facility] Other 05-16-2022 11:20-0400 Respiratory rate 18 /min Lali Ramon Other [facility] Other 05-16-2022 11:20-0400 SaO2% (BldA) [Mass fraction] 100 % Lali Ramon Other [facility] Other 05-16-2022 11:20-0400 Systolic blood pressure 134 mm[Hg] Lali Ramon Other [facility] Other Encounters Encounter Date Encounter Type Care Provider Facility Start: 01-22-2024 End: 01-22-2024 ambulatory Harvey Stover Facility:[facility] Start: 01-22-2024 End: 01-22-2024 ambulatory DO Harvey Stover Work Phone: [facility] Work Phone: Start: 01-22-2024 End: 01-22-2024 Patient encounter procedure DO Harvey Stover Work Phone: [facility] Work Phone: Start: 01-12-2024 End: 01-12-2024 ambulatory [facility] Work Phone: Start: 01-12-2024 End: 01-12-2024 Patient encounter procedure [facility] Work Phone: Start: 12-21-2023 Non-patient / Non-visit [facility] [employer] Work Phone: Start: 09-15-2023 End: 09-15-2023 ambulatory REGUL[facility] Start: 06-12-2023 End: 06-12-2023 ambulatory Harvey Stover Other [facility] Other Start: 06-12-2023 Telephone encounter Harvey Stover [facility] Start: 06-10-2023 End: 06-10-2023 ambulatory Harvey Stover Other [facility] Other Start: 06-10-2023 Encounter for genera l adult medical examination without abnormal findings Harvey Stover [facility] Start: 06-10-2023 Periodic preventive med est patient 40-64yrs Harvey Stover [facility] Start: 03-19-2023 End: 03-19-2023 ambulatory REGULO [facility] Start: 12-25-2022 End: 12-25-2022 ambulatory Harvey Stover Other [facility] Other Start: 12-25-2022 Office outpatient vi sit 15 minutes Harvey Stover [facility] Start: 05-16-2022 End: 05-16-2022 ambulatory Lali Ramon Other [facility] [employer] Other Start: 05-16-2022 Office outpatient ne w 20 minutes Lali Ramon [facility] Start: 07-03-2021 End: 07-03-[address] HARVEY STOVER Facility:[facility] Procedures Date Procedure Procedure Detail Performing Clinician Start: 09-15-2023 Follow-up visit Follow-up REGULO HENRY Plan of Treatment Date Care Activity Detail Author Comprehensive metabo lic 1999 panel - Serum or Plasma [facility] MRA Head vessels WO contrast [facility] Patient Education Low back pain in adults [facility] Work Phone: US.doppler Carotid a rteries - bilateral [facility] Immunizations Immunization Date Immunization Notes Care Provider Jona lynch 03-20-2010 diphtheria, tetanus toxoids and acellular pertussis vaccine, unspecified formulation Harvey Stover Other [facility] Payers Date Payer Category Payer Self-pay 2024 Unknown [id number] 1965 Unknown [id number] 1961 Unknown [id number] Unknown [id number] Social History Date Type Detail Facility Sex Assigned At [facility] [employer] Other Start: 1965 Sex Assigned At Male [facility] Progress note 09-15-2023 Note Date & Type Note Facility 09-15-2023 Note -------- Attestation signed by Regulo Henry MD at 09/15/2023 1:26 PM I personally saw and examined the patient on the same date of service as resident/fellow . I discussed the findings and therapeutic plan with the resident/fellow . I agree with the documentation, except for any edits/updates below. Teaching Physician's Revisions: -------- Subjective Patient ID: Jordan Aguilar is a 58 y.o. male who presents for No chief complaint on file.. HPI 58 yo male is here for follow-up with H/O seropositive RA, with sacroiliitis and +HLA-B27 and DJD of L spine . At one time he was on methotrexate and Humira however he is not taking either and feels that his disease is well controlled with minimal low back pain and no peripheral joint symptoms. He is taking gabapentin, nabumetone, and occasional Tylenol. He stated that his hip pain is better and overall able to do his daily activity with no limitation. He described no significant morning stiffness, low back pain, have not had uveitis, no chest pain and no shortness of breath He continues to have numbness in b/l feet. Review of Systems Constitutional: Negative for activity change, appetite change, chills, diaphoresis, fatigue, fever and unexpected weight change. HENT: Negative for mouth sores and trouble swallowing. Eyes: Negative for visual disturbance. Respiratory: Negative for cough, chest tightness, shortness of breath and wheezing. Cardiovascular: Negative for chest pain. Gastrointestinal: Negative for blood in stool, constipation, diarrhea, nausea and vomiting. Genitourinary: Negative for dysuria and flank pain. Musculoskeletal: Minimal joint pain with no low back pain at this stage Skin: Negative for rash. Neurological: Positive for numbness. Negative for tremors, weakness, light-headedness and headaches. Objective There were no vitals taken for this visit. Physical Exam Constitutional: Appearance: Normal appearance. He is normal weight. HENT: Head: Normocephalic and atraumatic. Mouth/Throat: Mouth: Mucous membranes are moist. Eyes: Extraocular Movements: Extraocular movements intact. Conjunctiva/sclera: Conjunctivae normal. Pupils: Pupils are equal, round, and reactive to light. Pulmonary: Effort: Pulmonary effort is normal. Musculoskeletal: General: No swelling or tenderness. Cervical back: Normal range of motion and neck supple. Neurological: Mental Status: He is alert and oriented to person, place, and time. Psychiatric: Mood and Affect: Mood normal. Assessment/Plan 58-year-old with longstanding history of ankylosing spondylitis and seropositive rheumatoid arthritis who has had multiple laminectomies in the past and at one time he was taking methotrexate and Humira presented today. He is totally asymptomatic and is not on methotrexate or Humira and has minimal joint pain. He is physically actively 1. Inactive seropositive rheumatoid and ankylosing spondylitis -he is relatively asymptomatic at this stage taking anti-inflammatory medication and gabapentin for history of neuropathy. Plan follow-up in 6 months or as needed in case he gets a active symptoms of RA or his ankylosing spondylitis Seen by Dr. Henry and Dr. Adams [facility] Evaluation note 06-10-2023 Note Date & Type Note Facility 06-10-2023 Evaluation note Encounter Date Diagnosis Assessment Notes Jun, Wellness examination (ICD-10 - Z00.00) Healthy diet and exercise. Reviewed age-appropriate preventive testing recommended. Jun, Rheumatoid arthritis with rheumatoid factor of right wrist without organ or systems involvement (ICD-10 - M05.731) Stable and in remission. Taking Nabumetone for arthritic pain w/ improved symptoms Off of MTX, Humira Jun, Cigarette nicotine dependence without complication (ICD-10 - F17.210) This patient has been encouraged to quit tobacco use immediately. They are aware of the hazards associated with tobacco use, including but not limited to respiratory infections, vascular disease and cancers. Jun, Mucopurulent chronic bronchitis (ICD-10 - J41.1) No ER visits for AECOPD No inhalers necessary Instructed on smoking cessation: planning on Acupuncture Jun, Lumbar spondylosis (ICD-10 - M47.816) The patient is instructed to avoid bending, twisting or lifting. They are to use intermittent heat and ice as needed. They may schedule a massage or gentle manipulation. They may safely use Tylenol as needed. Jun, Screening PSA (prostate specific antigen) (ICD-10 - Z12.5) Yearly EDEN and PSA Jun, Screening for colon cancer (ICD-10 - Z12.11) Asymptomatic, low risk patient. Denies change in appetite, weight or bowel habits Denies melena or hematochezia Jun, Erectile dysfunction due to arterial insufficiency (ICD-10 - N52.01) [facility] Other Progress note 03-19-2023 Note Date & Type Note Facility 03-19-2023 Note Subjective Patient ID: Jordan Aguilar is a 57 y.o. male who presents for Follow-up (3 month follow up). HPI 57 yo male is here for follow-up . H/O seropositive RA, with sacroiliitis and +HLA-B27 and DJD of L spine . At one time he was on methotrexate and Humira however he is not taking either and feels that his disease is not controlled minimal low back pain and no peripheral joint symptoms he is taking gabapentin, nabumetone, and occasional Tylenol. He stated that his hip pain is better and overall able to do his daily activity with no limitation. He described no significant morning stiffness, low back pain, have not had uveitis, no chest pain and no shortness of breath Review of Systems Constitutional: Negative for activity change, appetite change, chills, diaphoresis, fatigue, fever and unexpected weight change. HENT: Negative for mouth sores and trouble swallowing. Eyes: Negative for visual disturbance. Respiratory: Negative for cough, chest tightness, shortness of breath and wheezing. Cardiovascular: Negative for chest pain. Gastrointestinal: Negative for blood in stool, constipation, diarrhea, nausea and vomiting. Genitourinary: Negative for dysuria and flank pain. Musculoskeletal: Minimal joint pain with no low back pain at this stage Skin: Negative for rash. Neurological: Positive for numbness. Negative for tremors, weakness, light-headedness and headaches. Objective Visit Vitals BP 127/75 (BP Location: Left arm, Patient Position: Sitting) Pulse 78 Physical Exam Constitutional: Appearance: Normal appearance. He is normal weight. HENT: Head: Normocephalic and atraumatic. Mouth/Throat: Mouth: Mucous membranes are moist. Eyes: Extraocular Movements: Extraocular movements intact. Conjunctiva/sclera: Conjunctivae normal. Pupils: Pupils are equal, round, and reactive to light. Pulmonary: Effort: Pulmonary effort is normal. Musculoskeletal: General: No swelling or tenderness. Cervical back: Normal range of motion and neck supple. Neurological: Mental Status: He is alert and oriented to person, place, and time. Psychiatric: Mood and Affect: Mood normal. Assessment/Plan 57-year-old with longstanding history of ankylosing spondylitis and seropositive rheumatoid arthritis who had had multiple laminectomies in the past and at one time he was taking methotrexate and Humira presented today totally asymptomatic he is not on methotrexate or Humira and has been minimal joint pain he is actively involved and physical therapy and aquatic program. Impression Inactive seropositive rheumatoid and ankylosing spondylitis, he is relatively asymptomatic at this stage taking anti-inflammatory medication and gabapentin for history of neuropathy. Plan follow-up in 6 months or as needed in case he gets a active symptoms of RA or her ankylosing spondylitis No diagnosis found. No orders of the defined types were placed in this encounter. No results found for this or any previous visit (from the past 36 hour(s)). No follow-ups on file. [facility] Evaluation note 12-25-2022 Note Date & Type Note Facility 12-25-2022 Evaluation note Encounter Date Diagnosis Assessment Notes Dec, Mucopurulent chronic bronchitis (ICD-10 - J41.1) Mucinex as needed. Smoking cessation stressed Dec, Cervical spondylosis with radiculopathy (ICD-10 - M47.22) Heat, ice and ROM exercises. May need XR if no improvement. Has Neurology referral set up Dec, Cigarette nicotine dependence without complication (ICD-10 - F17.210) This patient has been encouraged to quit tobacco use immediately. They are aware of the hazards associated with tobacco use, including but not limited to respiratory infections, vascular disease and cancers. Dec, Erectile dysfunction due to arterial insufficiency (ICD-10 - N52.01) Initiate treatment d/c tobacco use, neurogenic from remote back condition? [facility] Other Evaluation note 05-16-2022 Note Date & Type Note Facility 05-16-2022 Evaluation note Encounter Date Diagnosis Assessment Notes May, Tooth abscess (ICD-10 - K04.7) Discussed diagnosis with patient and instructed to start ATB immediately. Warm salt water gargles. Ice to swelling and/or warm compresses prn for pain, ice for 10-20 minutes at a time, ensure thin cloth barrier between skin. Advised to call dentist today and to let dentist know he has an abscessed tooth. Stressed to patient that he needs to follow up with dentist DEVON due to risk of infection spreading into bone. Discussed S/S of worsening infection and instructed he should seek immediate evaluation in the ER if she develops any. Seek re-evaluation if no improvement after 48 hours on ATB. Patient verbalized understanding and agrees with treatment plan May, Other Tooth abscess home care material was printed [facility] Other History general Narrative - Reported 03-12-2018 Note Date & Type Note Facility 03-12-2018 History general N arrative - Reported Type Medical History rheumatoid arthritis Medical History neuropathy Right and Left foot Surgical History Lumbar Back Surgery - fusion 03/12/18 Hospitalization History see surgical history [facility] Other Evaluation note Note Date & Type Note Facility Evaluation note No Information [facility] Other Evaluation note Note Date & Type Note Facility Evaluation note Diagnosis Onset Date Lumbar back pain with radicu lopathy affecting lower extremity acute Lumbar spondylosis acute Rheumatoid arthritis involvi ng both hands with positive rheumatoid factor [facility] Work Phone: Evaluation note Note Date & Type Note Facility Evaluation note Diagnosis Onset Date Hypertension acute Lumbar spondylosis acute Nicotine dependence acute Numbness and tingling of right arm acute Numbness and tingling of right leg acute Rheumatoid arthritis involvi ng both hands with positive rheumatoid factor acute Right carotid bruit [facility] Work Phone: History general Narrative - Reported Note Date & Type Note Facility History general Narrative - Reported Type Medical History rheumatoid arthritis Medical History neuropathy Right and Left foot [facility] Other Summary Purpose Family History No Family History Records Found Relationship Condition Age at Onset Recorded Date/T joe father Unknown Malignant neoplasm Unknown Not Specified Heart disease Unknown Unknown Advance Directives No Advanced Directives Records Found Advance Directive Response Recorded Date/ Time Advance Directives No November 02, 2023 4:27pm Chief Complaint and Reason for Visit Chief Complaint Amb Documentation Possible Nerve-Numb in leg/arm Reason for Visit Lumbar back pain wit h radiculopathy affecting lower extremity Lumbar spondylosis Rheumatoid arthritis involving both hands with positive rheumatoid factor Chief Complaint Amb Documentation Possible Nerve-Numb in leg/arm R20.8 R09.89 R20.0 R20.2 Reason for Visit Hypertension Lumbar spondylosis Nicotine dependence Numbness and tingling of right arm Numbness and tingling of right leg Rheumatoid arthritis involving both hands with positive rheumatoid factor Right carotid bruit Additional Source Comments (unrecognized sect ion and content) No Status Records FoundNo Status Records FoundNo Status Records FoundNo Status Records Found INFORMATION SOURCE (unrecogn ized section and content) DATE CREATED AUTHOR 07/06/2021 [facility] DATE CREATED AUTHOR AUTHOR'S ORGANIZ ATION 01/12/2022 [facility] DATE CREATED AUTHOR AUTHOR'S ORGANIZ ATION 12/21/2023 [facility] DATE CREATED AUTHOR AUTHOR'S ORGANIZ ATION 01/23/2024 [facility] REASON FOR VISIT (unrecogniz ed section and content) LEFT UPPER TOOTH PAIN, POSS INFECTIONNeck PainwellnessLab Results Care Teams (unrecognized sec tion and content) Team Status: Active Member Role Status Dates Harvey Stover DO Primary Care Provider Active Team Status: Active Member Role Status Dates Harvey Stover DO Primary Care Provider Active Start: December 21, 2023 DOMINIQUE Inman Attending Provider Active Start : December 21, 2023 Team Status: Inactive Member Role Status Dates Harvey Stover DO Primary Care Provide r, Attending Provider Active Start: January 12, 2024 End: January 12, 2024 Team Status: Inactive Member Role Status Dates Harvey Stover DO Primary Care Provide r, Attending Provider Active Start: January 22, 2024 End: January 22, 2024 Goals (unrecognized section and content) Goals may be documented in a n alternate section FOR RECORDS PERTAINING TO PATIENTS WHO ARE OR HAVE BEEN ENROLLED IN A CHEMICAL DEPENDENCY/SUBSTANCEABUSE PROGRAM, SOME INFORMATION MAY BE OMITTED. This clinical summary was aggregated from multiple sources. Caution should be exercised in using it in the provision of clinical care. This summary normalizes information from multiple sources, and as a consequence, information in this document may materially change the coding, format and clinical context of patient data. In addition, data may be omitted in some cases. CLINICAL DECISIONS SHOULD BE BASED ON THE PRIMARY CLINICAL RECORDS. [facility]. provides no warranty or guarantee of the accuracy or completeness of information in this document.
--- NOTE | 2024-03-03 21:02 | CT_ITS ---
The [address] [address] Patient Name: UMAIR HANCOCK MRN: [id number] date: 1965 Sex: M Assigned Patient Location: ER Current Patient Location: ER Accession/Order Number: [id number] Exam Date: 03/03/2024 21:09 Report Date: 03/03/2024 21:31 At the request of: EMILI DYSON Procedure: CT stroke head/brain wo con EXAMINATION: CT stroke head/brain wo con TECHNIQUE: Axial CT images were obtained through the brain. Sagittal and coronal reformatted images were also obtained. Dose reduction techniques were achieved by using automated exposure control and/or adjustment of mA and/or kV according to patient size and/or use of iterative reconstruction technique. HISTORY: Off balance, left hand weakness all day COMPARISON: MRI 01/29/2024 FINDINGS: Intracranial Bleed: No evidence for acute intracranial bleed. Intracranial Mass: No evidence for mass lesion. No mass effect or midline shift. Extra-axial spaces: The ventricular system is normal caliber. White/Cheung Matter: There is small focus of loss of cheung-white matter differentiation involving the left temporal lobe posteriorly. No significant white matter abnormality. Skull/Scalp: No evidence for skull fracture or lesion. Orbits and sinuses: The orbits appear unremarkable. The visualized paranasal sinuses are clear. CT/CT stroke head/brain wo con IMPRESSION: Suspicious for small focus of subacute cortical infarct involving the left upper lobe posteriorly. Evaluation of the temporal lobe is limited by streak artifact at the base of the skull. Correlate clinically. No additional acute intracranial findings. Electronically authenticated by: DEBORAH BOND Date: 03/03/2024 21:31
--- NOTE | 2024-03-03 21:03 | XR_ITS ---
[address] [address] Patient Name: UMAIR HANCOCK MRN: [id number] date: 1965 Sex: M Assigned Patient Location: ER Current Patient Location: ER Accession/Order Number: [id number] Exam Date: 03/03/2024 21:53 Report Date: 03/03/2024 22:30 At the request of: EMILI DYSON Procedure: XR chest 1V EXAM: XR chest 1V CLINICAL INDICATION: poss cva TECHNIQUE: Portable frontal semi-erect view of the chest. COMPARISON: None. FINDINGS: Lines and tubes: None. Lungs: Chronic COPD changes. No convincing focal infiltrates. No pleural effusion or pneumothorax. Heart: Cardiac and mediastinal contours are unremarkable. No overt pulmonary vascular congestion. Osseous structures: No acute abnormalities. XR/XR chest 1V IMPRESSION: No acute cardiopulmonary process. Electronically authenticated by: KATHRIN ART Date: 03/03/2024 22:30
--- NOTE | 2024-03-03 21:03 | ECG_ITS ---
The [facility] Test Date: 2024-03-03 Pat Name: UMAIR HANCOCK Department: Room: 220 Gender: Male [employer]: : 1965 Requested By: [id number] Order Number: [id number] Reading MD: CHINYERE YOUNGBLOOD Measurements Intervals Holstein Rate: 64 P: 71 RI: 172 QRS: 63 QRSD: 102 T: 71 QT: 426 QTc: 436 Interpretive Statements 1100 Sinus rhythm 4068 Nonspecific Twave abnormality 9130 borderline ECG No previous ECG available for comparison Electronically Signed On 03-06-2024 8:04:39 EDT by CHINYERE YOUNGBLOOD
--- NOTE | 2024-03-03 21:05 | ED.NEUROSD1 ---
HPI - Neuro Symptoms/Deficit General Chief Complaint: Neuro Symptoms/Deficit Stated Complaint: neck pain, left side numbnees, high bp Time Seen by Provider: 03/03/24 20:50 Source: patient Mode of arrival: walk-in Limitations: no limitations History of Present Illness HPI Narrative: 58-year-old male presents to the emergency department for neurologic symptoms. He has apparently been off balance for weeks and had an MRI that he states was negative. Today, all day, he has had weakness in his left hand and was dropping cans of pop. His came home at 7:30 PM and noticed that his left face seemed a little bit weak and according to their daughter it has been that way all day as well. He does not complain of a headache. No fever or vomiting. Related Data Home Medications ?Medication ?Instructions ?Recorded ?Confirmed gabapentin 300 mg capsule mg PO Q8H 03/03/24 nabumetone 750 mg tablet mg PO DAILY 03/03/24 sildenafil 100 mg tablet mg PO Q24H PRN sexual activity 03/03/24 Allergies Allergy/AdvReac Type Severity Reaction Status Date / Time No Known Drug Allergies Allergy Verified 03/03/24 20:53 Review of Systems ROS Narrative A ten point review of systems is negative except as noted above. [facility] Medical History (Updated 03/03/24 @ 23:27 by Rashel Plummer MD) Rheumatoid arthritis ?M06.9 - Rheumatoid arthritis, unspecified (ICD-10) Pneumothorax ?J93.9 - Pneumothorax, unspecified (ICD-10) Exam Narrative Exam Narrative: Nurses note and vital signs reviewed and patient is not hypoxic. General: The patient appears well and in no apparent distress. Patient is resting comfortably on cart. Skin: Warm, dry, no pallor noted. There is no rash noted. Head: Normocephalic, atraumatic Eye: Normal conjunctiva, no drainage, EOMI. PERRL Ears, Nose, Mouth, and Throat: oral mucosa is moist. Nares patent. Cardiovascular: Regular Rate and Rhythm Respiratory: Patient is in no distress, no accessory muscle use, lungs are clear to auscultation, no wheezing, rales or rhonchi Back: non-tender GI: Soft and nontender Musculoskeletal: The patient has no evidence of calf tenderness, no pitting edema, symmetrical pulses noted bilaterally Neurological: He is awake alert and oriented. Left hand grasp is very minimally decreased compared to the contralateral. Biceps and triceps strength is intact. No pronator drift. Lower extremity strength intact. The patient has a slight hint of left facial droop. Otherwise his cranial nerves seem to be intact. Psychiatric: Cooperative Constitutional Vital Signs, click to edit/add: Last Vital Signs Temp 97.9 F 03/03/24 20:53 Pulse 67 03/03/24 23:00 Resp 18 03/03/24 23:00 BP 179/100 H 03/03/24 23:00 Pulse Ox 96 03/03/24 23:00 O2 Del Method Room Air 03/03/24 20:53 Course Vital Signs Vital signs: Vital Signs Temperature 97.9 F 03/03/24 20:53 Pulse Rate 81 03/03/24 20:53 Respiratory Rate 14 03/03/24 20:53 Blood Pressure 198/100 H 03/03/24 20:53 Pulse Oximetry 98 03/03/24 20:53 Oxygen Delivery Method Room Air 03/03/24 20:53 Temperature 97.9 F 03/03/24 20:53 Pulse Rate 67 03/03/24 23:00 Respiratory Rate 18 03/03/24 23:00 Blood Pressure 179/100 H 03/03/24 23:00 Pulse Oximetry 96 03/03/24 23:00 Oxygen Delivery Method Room Air 03/03/24 20:53 MDM - Neuro Symptoms/Deficit MDM Narrative Medical decision making narrative: CT brain findings are discussed with [facility] and neurology. They recommended admission here with administration of aspirin and MRI tomorrow. The patient was actually scheduled to have an MRI of his cervical spine tomorrow. He has had no change in his neurologic symptoms. NIH is 2. Findings are discussed with the patient and his family. Differential Diagnosis Differential diagnosis: Likely cerebrovascular accident and multiple sclerosis (Peripheral neuropathy) Lab Data Attestation: I reviewed the patient's lab results. Labs: Lab Results 03/03/24 Range/Units 21:00 WBC 9.5 (4.0-11.0) 10^3/uL RBC 4.77 (4.70-6.10) 10^6/uL Hgb 14.9 (14.0-18.0) g/dL Hct 43.2 (42.0-54.0) % MCV 90.6 (80.0-94.0) fL MCH 31.2 (25.9-34.0) pg MCHC 34.5 (29.9-35.2) g/dL RDW 12.7 (11.0-15.0) % Plt Count 184 (150-450) 10^3/uL MPV 10.6 (9.5-13.5) fL Neut % (Auto) 51.9 (43.0-75.0) % Lymph % (Auto) 37.1 (20.5-60.0) % [place] % (Auto) 7.8 (1.7-12.0) % Eos % (Auto) 2.0 (0.9-7.0) % Baso % (Auto) 0.9 (0.2-2.0) % Neut # (Auto) 4.9 (1.4-6.5) 10^3/uL Lymph # (Auto) 3.5 (1.2-3.8) 10^3/uL [place] # (Auto) 0.7 (0.3-0.8) 10^3/uL Eos # (Auto) 0.2 (0.0-0.7) 10^3/uL Baso # (Auto) 0.1 (0.0-0.1) 10^3/uL Abs Immat Gran (auto) 0.03 (0.00-0.03) 10^3/uL Imm/Tot Granulo (auto) 0.3 (0.0-0.5) % PT 10.9 (9.0-11.6) sec INR 1.03 APTT 28.6 (22.3-36.2) sec Sodium 135 L (136-145) mmol/L Potassium 3.6 (3.5-5.1) mmol/L Chloride 99 (98-107) mmol/L Carbon Dioxide 27.5 (21.0-32.0) mmol/L Anion Gap 12.1 BUN 7.0 (7.0-18.0) mg/dL Creatinine 0.85 (0.70-1.30) mg/dL Est GFR ( Amer) >60 (>=60) Est GFR (Non-Af Amer) >60 (>=60) BUN/Creatinine Ratio 8.2 Glucose 122 H (74-106) mg/dL Calcium 9.0 (8.5-10.1) mg/dL Imaging Data CT scan - head: Radiologist's impression: ITS Impressions Brain CT 03/03/24 21:02 IMPRESSION: Suspicious for small focus of subacute cortical infarct involving the left upper lobe posteriorly. Evaluation of the temporal lobe is limited by streak artifact at the base of the skull. Correlate clinically. No additional acute intracranial findings. Electronically authenticated by: DEBORAH BOND Date: 03/03/2024 21:31 ADDENDUM: 03/03/242146 IMPRESSION: Suspicious for small focus of subacute cortical infarct involving the left upper lobe posteriorly. Evaluation of the temporal lobe is limited by streak artifact at the base of the skull. Correlate clinically. No additional acute intracranial findings. Electronically authenticated by: DEBORAH BOND Date: 03/03/2024 21:44 Chest X-Ray 03/03/24 21:03 IMPRESSION: No acute cardiopulmonary process. Electronically authenticated by: KATHRIN ART Date: 03/03/2024 22:30 Head CTA 03/03/24 21:55 IMPRESSION: No significant vascular occlusion, aneurysm or dissection. Electronically authenticated by: KATHRIN ART Date: 03/03/2024 22:56 Neck CTA 03/03/24 21:55 IMPRESSION: No significant vascular occlusion, aneurysm or dissection. Electronically authenticated by: KATHRIN ART Date: 03/03/2024 22:56 ECG Data Attestation: I personally reviewed and interpreted this ECG as follows: (EKG on my interpretation shows normal sinus rhythm without acute change) Discharge Plan Discharge Chief Complaint: Neuro Symptoms/Deficit Clinical Impression: Left hand weakness, Ataxia Patient Disposition: Admitted As Inpatient Time of Disposition Decision: 23:27 Condition: Good
[2024-03-03 21:11] LABS: Basophils Absolute Auto 0.1 10^3/uL (0.0-0.1); Basophils Percent Auto 0.9 % (0.2-2.0); Eosinophils Absolute Auto 0.2 10^3/uL (0.0-0.7); Hematocrit 43.2 % (42.0-54.0); Hemoglobin 14.9 g/dL (14.0-18.0); Immature Granulocytes Abs Auto 0.03 10^3/uL (0.00-0.03); Immature Granulocytes Pct Auto 0.3 % (0.0-0.5); Lymphocytes Absolute Auto 3.5 10^3/uL (1.2-3.8); Lymphocytes Percent Auto 37.1 % (20.5-60.0); Mean Corpuscular HGB Conc 34.5 g/dL (29.9-35.2); Mean Corpuscular Hemoglobin 31.2 pg (25.9-34.0); Mean Corpuscular Volume 90.6 fL (80.0-94.0); Mean Platelet Volume 10.6 fL (9.5-13.5); Monocytes Absolute Auto 0.7 10^3/uL (0.3-0.8); Monocytes Percent Auto 7.8 % (1.7-12.0); Neutrophils Absolute Auto 4.9 10^3/uL (1.4-6.5); Neutrophils Percent Auto 51.9 % (43.0-75.0); Platelet Count 184 10^3/uL (150-450); Red Blood Count 4.77 10^6/uL (4.70-6.10); Red Cell Distribution Width 12.7 % (11.0-15.0); White Blood Count 9.5 10^3/uL (4.0-11.0)
[2024-03-03 21:18] LABS: Anion Gap 12.1; BUN Creatinine Ratio 8.2; Carbon Dioxide 27.5 mmol/L (21.0-32.0); Chloride 99 mmol/L (98-107); Estimated GFR (African America >60 (>=60); Estimated GFR (Non-African Ame >60 (>=60); Glucose 122 mg/dL (74-106); Potassium 3.6 mmol/L (3.5-5.1); Sodium 135 mmol/L (136-145)
[2024-03-03 21:25] LABS: INR 1.03; Partial Thromboplastin Time 28.6 sec (22.3-36.2); Prothrombin Time 10.9 sec (9.0-11.6)
--- NOTE | 2024-03-03 21:55 | CT_ITS ---
[address] [address] Patient Name: UMAIR HANCOCK MRN: [id number] date: 1965 Sex: M Assigned Patient Location: ER Current Patient Location: Accession/Order Number: [id number] Exam Date: 03/03/2024 22:00 Report Date: 03/03/2024 22:56 At the request of: EMILI DYSON Procedure: CT angio neck EXAM: CT angio neck, CT angio head CLINICAL INDICATION: Off balance, left hand weak COMPARISON: Same day CT head TECHNIQUE: Contiguous axial images are obtained from the neck to the vertex before and after the administration of nonionic contrast. 2-D and 3-D reconstructions were performed to better evaluate the vasculature. NASCET criteria was utilized during interpretation of internal carotid artery stenosis. Automatic exposure control radiation dose reduction technology was utilized. FINDINGS: There are no vascular occlusions observed. The bilateral common and internal carotid arteries are grossly patent. The vertebral arteries, basilar artery and basilar artery bifurcation are normal. The posterior communicating arteries are not visualized on the source images. The internal carotid artery bifurcations, the middle cerebral artery bifurcation/trifurcation regions and the anterior communicating artery region appears normal. The posterior cerebral arteries appear intact in the visualized segments. The brain parenchyma is normal. The ventricles, basal cisterns, and sulci over the convexities are normal. The orbits, visualized paranasal sinuses and bony calvarium are normal. The sella turcica and cavernous sinus regions appear intact. The mastoid air cells are normal. The fossa of Rosenmuller is normal. The parotid space contents and petroleum refinery operator space contents appear intact. The parapharyngeal spaces are normal. The submandibular and sublingual space contents appear intact. The submental space is intact. The epiglottis, aryepiglottic folds, and piriform sinuses are normal. The vallecula appears normal. The larynx and trachea are normal. The thyroid lobes and esophagus appear intact. The carotid space contents are normal. There is no deep cervical chain adenopathy observed. The jugulodigastric regions appear intact. The perivertebral space contents are normal. The supraclavicular regions appear intact. The visualized mediastinum and lungs demonstrates emphysematous changes. Mild degenerative changes of the cervical spine. CT/CT angio neck IMPRESSION: No significant vascular occlusion, aneurysm or dissection. Electronically authenticated by: KATHRIN ART Date: 03/03/2024 22:56
--- NOTE | 2024-03-03 21:55 | CT_ITS ---
The [address] [address] Patient Name: UMAIR HANCOCK MRN: [id number] date: 1965 Sex: M Assigned Patient Location: ER Current Patient Location: Accession/Order Number: [id number] Exam Date: 03/03/2024 22:00 Report Date: 03/03/2024 22:56 At the request of: EMILI DYSON Procedure: CT angio head EXAM: CT angio neck, CT angio head CLINICAL INDICATION: Off balance, left hand weak COMPARISON: Same day CT head TECHNIQUE: Contiguous axial images are obtained from the neck to the vertex before and after the administration of nonionic contrast. 2-D and 3-D reconstructions were performed to better evaluate the vasculature. NASCET criteria was utilized during interpretation of internal carotid artery stenosis. Automatic exposure control radiation dose reduction technology was utilized. FINDINGS: There are no vascular occlusions observed. The bilateral common and internal carotid arteries are grossly patent. The vertebral arteries, basilar artery and basilar artery bifurcation are normal. The posterior communicating arteries are not visualized on the source images. The internal carotid artery bifurcations, the middle cerebral artery bifurcation/trifurcation regions and the anterior communicating artery region appears normal. The posterior cerebral arteries appear intact in the visualized segments. The brain parenchyma is normal. The ventricles, basal cisterns, and sulci over the convexities are normal. The orbits, visualized paranasal sinuses and bony calvarium are normal. The sella turcica and cavernous sinus regions appear intact. The mastoid air cells are normal. The fossa of Rosenmuller is normal. The parotid space contents and crematorium operator space contents appear intact. The parapharyngeal spaces are normal. The submandibular and sublingual space contents appear intact. The submental space is intact. The epiglottis, aryepiglottic folds, and piriform sinuses are normal. The vallecula appears normal. The larynx and trachea are normal. The thyroid lobes and esophagus appear intact. The carotid space contents are normal. There is no deep cervical chain adenopathy observed. The jugulodigastric regions appear intact. The perivertebral space contents are normal. The supraclavicular regions appear intact. The visualized mediastinum and lungs demonstrates emphysematous changes. Mild degenerative changes of the cervical spine. CT/CT angio head IMPRESSION: No significant vascular occlusion, aneurysm or dissection. Electronically authenticated by: KATHRIN ART Date: 03/03/2024 22:56
[2024-03-03] MEDS: ASPIRIN 325 MG TABLET PO (23:34)
[2024-03-04] VITALS (15 sets, daily range): BP systolic 134–182; BP diastolic 76–96; PULSE 66–122; TEMP 36.5–36.7; O2SAT 96–97; BMI 18.1
--- OUTSIDE RECORDS SUMMARY | 2024-03-04 00:07 | XMS_ITS | CCD ---
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 Attending Dr: Harvey Stover [...] previous ECGs available Confirmed by Harry Auguste ([id number]) on 01/23/2024 11:28:13 AM Referred By: RYLIE Electronically Signed By:Harry Auguste Transcribed By: MUS Signed By Harry Auguste MD 01/23/24 1128 Normal [facility] ECH echo transthoracicon [facility] echo transthoracic [facility] Main [address] [address] Echocardiogram Signed Patient: Jordan Aguilar MR#: [id number] : 1965 Acct:[id number] Age/Sex: 58 / M ADM Date: 01/22/24 Loc: Room: Type: [facility] Attending Dr: Harvey Stover DO Ordering Provider: Harvey Stover DO Date of Service: 01/22/24 E[facility] echo transthoracic: R20.8 - Other disturbances [...] Signed By: Edelmira Plascencia MD 01/22/24 2246 [facility] 36on 12-21-2023 36 PT calling for refills on Gabapentin and Relafen: Last visit: 09/15/23 Next visit: 03/07/24 CBC/CMP: 12/18/22 [facility] Refillon 12-21-2023 Refill [id number] Jordan Aguilar 1965 [facility] Provider Department Center 12/21/2023 AMANDA GREWAL [facility] RHEUM Zaida Heal Family History Problem Relation Age of Onset Hypertension Mother Hypertension Sister Family Status - Relation Status Age at Mother Sister [facility] Follow-Upon 09-15-2023 Follow-Up [id number] Jordan Aguilar 1965 [facility] Provider Department Center 09/15/2023 REGULO QUIROS [facility] RHEUM Zaida Heal Family History Problem Relation Age of Onset Hypertension Mother Hypertension Sister Family Status - Relation Status Age at Mother Sister Level of Service:[address]64 [place] OFFICE/OUTPATIENT ESTABLISHED LOW MDM 20-29 MIN () Reason for Visit and Comments: Follow-up [346402] [facility] 36on 03-19-2023 36 Pharmacy called to request clarification on the Gabapentin 500 mg order - it reads one cap three times a day and one cap at bedtime. Do you mean four times a day? Please Advise [facility] Follow-Upon 03-19-2023 Follow-Up [id number] Jordan Aguilar 1965 Provider Department Center 03/19/2023 REGULO QUIROS [facility] RHEUM Zaida Heal Family History Problem Relation Age of Onset Hypertension Mother Hypertension Sister Family Status - Relation Status Age at Mother Sister Level of Service:78510 [place] OFFICE/OUTPATIENT ESTABLISHED LOW MDM 20-29 MIN Reason for Visit and Comments: Follow-up [233037] - 3 month follow up [facility] Telephoneon 03-19-2023 Telephone [id number] Jordan Aguilar 1965 Provider Department Center 03/19/2023 MEME ONTIVEROS C RHEUM Zaida Heal Family History Problem Relation Age of Onset Hypertension Mother Hypertension Sister Family Status - Relation Status Age at Mother Sister [facility] 36on 02-11-2023 36 300 mg TAKE 1 CAPSULE BY MOUTH AT BEDTIME [facility] Orders Onlyon 02-11-2023 Orders Only [id number] Jordan Aguilar 1965 Provider Department Center 02/11/2023 OLIVER RAMIREZ C RHEUM Zaida Heal Family History Problem Relation Age of Onset Hypertension Mother Hypertension Sister Family Status - Relation Status Age at Mother Sister [facility] 36on 02-10-2023 36 Pt called and stated he need refill on Gabapentin. It was last filled on 12/25/2022 by PCP. Pt stated you were prescribing this medication awhile back. [facility] Telephoneon 02-10-2023 Telephone [id number] Jordan Aguilar 1965 Provider Department Center 02/10/2023 REGULO QUIROS [facility] RHEUM Zaida Heal Family History Problem Relation Age of Onset Hypertension Mother Hypertension Sister Family Status - Relation Status Age at Mother Sister Reason for Visit and Comments: Med Refill [[id number]] Normal [facility] C REACTIVE PROTEINon CRP [Mass/Vol] 5.1 mg/L Normal 0.0-7.0 [facility] Comment on above: Performed By: #### 6 1405 #### [facility] [address] SEDIMENTATION RATEon SED RATE 5 mm/hr Normal 0-10 The [facility] Comment on above: Performed By: #### 5 6506 #### [facility] [address] [place] [address], [facility] CBC W/DIFFon 03-11-2021 ABS IMM GRANS 0.0 10*3/uL Normal 0.0-0.2 The [facility] Comment on above: Performed By: #### 5 0103 #### [facility] [address] [place] [address], [facility] ABS NEUTROPHILS 4.7 10*3/uL Normal 1.6-7.6 The [facility] Comment on above: Performed By: #### 5 0103 #### [facility] [address] [place] [address], [facility] Basophils (Bld) [#/Vol] 0.1 10*3/uL Normal 0.0-0.2 The [facility] Comment on above: Performed By: #### 5 0103 #### [facility] [address] [place] [address], [facility] Basophils/100 WBC (Bld) 0.8 % Normal 0.0-1.0 [facility] Comment on above: Performed By: #### 5 0103 #### [facility] [address] [place] [address], [facility] Eosinophils (Bld) [#/Vol] 0.1 10*3/uL Normal 0.0-0.5 [facility] Comment on above: Performed By: #### 5 0103 #### [facility] [address] [place] [address], [facility] Eosinophils/100 WBC (Bld) 1.4 % Normal 0.0-6.0 [facility] Comment on above: Performed By: #### 5 3 #### [facility] [address] [facility] [place] [address], [facility] Erythrocyte distribution width (RBC) [Ratio] 13.2 % Normal 11.5-15.0 [facility] Comment on above: Performed By: #### 3 #### [facility] [address] [place] [address], [facility] Hematocrit (Bld) [Volume fraction] 42.0 % Normal 39.0-50.0 [facility] Comment on above: Performed By: #### 102 #### [facility] [address] [facility] [place] [address], [facility] Hemoglobin (Bld) [Mass/Vol] 14.5 g/dL Normal 13.0-17.0 [facility] Comment on above: Performed By: #### 5 3 #### [facility] [address] [place] [address], [facility] IMMATURE GRANS 0.4 % Normal 0.0-1.0 The [facility] Comment on above: Performed By: #### 5 3 #### [facility] [address] [place] [address], [facility] Lymphocytes (Bld) [#/Vol] 2.8 10*3/uL Normal 1.2-4.0 [facility] Comment on above: Performed By: #### 5 0103 #### [facility] [address] [facility] [place] [address], [facility] Lymphocytes/100 WBC (Bld) 32.7 % Normal 20.0-45.0 [facility] Comment on above: Performed By: #### 5 3 #### [facility] [address] [facility] [place] [address], [facility] MCH (RBC) [Entitic mass] 31.4 pg Normal 27.0-33.0 [facility] Comment on above: Performed By: #### 5 0103 #### [facility] [address] [facility] [place] [address], [facility] MCHC (RBC) [Mass/Vol] 34.5 g/dL Normal 32.0-35.0 [facility] Comment on above: Performed By: #### 5 0103 #### [facility] [address] [place] [address], [facility] MCV (RBC) [Entitic vol] 90.9 fL Normal 82.0-98.0 [facility] Comment on above: Performed By: #### 102 #### [facility] [address] [place] [address], [facility] Monocytes (Bld) [#/Vol] 0.8 10*3/uL Normal 0.1-1.0 [facility] Comment on above: Performed By: #### 5 3 #### [facility] [address] MONOS 8.8 % Normal 5.0-12.0 [facility] Comment on above: Performed By: #### 5 3 #### [facility] [address] [facility]. [address] Neutrophils/100 WBC (Bld) 55.9 % Normal 40.0-72.0 [facility] Comment on above: Performed By: #### 5 3 #### [facility] [address] [place] [address], [facility] Nucleated RBC/100 WBC (Bld) [Ratio] 0 % Normal 0-0 [facility] Comment on above: Performed By: #### 5 3 #### [facility] [address] [place] [address], [facility] PLAT CNT 175 10*3/uL Normal 150-400 The [facility] Comment on above: Performed By: #### 5 3 #### [facility] [address] [place] [address], [facility] RBC (Bld) [#/Vol] 4.62 10*6/uL Normal 4.20-5.70 The [facility] Comment on above: Performed By: #### 5 102 #### [facility] [address] [place] [address], [facility] WBC (Bld) [#/Vol] 8.48 10*3/uL Normal 4.00-10.60 [facility] Comment on above: Performed By: #### 5 102 #### [facility] [address] COMP METABOLIC PANELon 03-11 Albumin [Mass/Vol] 4.6 g/dL Normal 3.5-5.7 [facility] Comment on above: Performed By: #### 0 0121 #### [facility] [address] ALKALINE PHOSPH 71 IU/L Normal 34-104 [facility] Comment on above: Performed By: #### 0 0121 #### [facility] [address] [facility]. [address] ALT [Catalytic activity/Vol] 8 U/L Normal 7-52 [facility] Comment on above: Performed By: #### 0 0121 #### [facility] [address] AST [Catalytic activity/Vol] 14 U/L Normal 13-39 [facility] Comment on above: Performed By: #### 0 0121 #### [facility] [address] [place] [address], [place] Bilirubin [Mass/Vol] 0.5 mg/dL Normal 0.3-1.0 [facility] Comment on above: Performed By: #### 0 0121 #### [facility] [address] [place] [address], [place] Calcium [Mass/Vol] 9.4 mg/dL Normal 8.6-10.3 [facility] Comment on above: Performed By: #### 0 0121 #### [facility] [address] [place] [address], [place] Chloride [Moles/Vol] 103 mmol/L Normal 98-107 [facility] Comment on above: Performed By: #### 0 0121 #### [facility] [address] [place] [address], [place] CO2 [Moles/Vol] 28 mmol/L Normal 21-31 The [facility] Comment on above: Performed By: #### 0 0121 #### [facility] [address] [place] [address], [place] Creatinine [Mass/Vol] 0.81 mg/dL Normal 0.70-1.30 [facility] Comment on above: Performed By: #### 0 0121 #### [facility] [address] [place] [address], [place] GFR/1.73 sq M.predicted among blacks MDRD (S/P/Bld) [Vol rate/Area] mL/min/{1.73_m2} Normal >60 [facility] Comment on above: Performed By: #### 0 0121 #### [facility] [address] [place] [address], [place] GFR/1.73 sq M.predicted among non-blacks MDRD (S/P/Bld) [Vol rate/Area] mL/min/{1.73_m2} Normal >60 [facility] Comment on above: Performed By: #### 0 0121 #### [facility] [address] [place] [address], [place] Glucose [Mass/Vol] 101 mg/dL High 70-[address] [facility] Comment on above: Performed By: #### 0 0121 #### [facility] [address] [place] [address], [place] Potassium [Moles/Vol] 5.1 mmol/L Normal 3.5-5.1 [facility] Comment on above: Performed By: #### 0 0121 #### [facility] [address] [place] [address], [place] Protein [Mass/Vol] 7.1 g/dL Normal 6.0-8.[address] [facility] Comment on above: Performed By: #### 0 0121 #### [facility] [address] [place] [address], [place] Sodium [Moles/Vol] 137 mmol/L Normal 136-[address] [facility] Comment on above: Performed By: #### 0 0121 #### [facility] [address] [place] [address], [place] Urea nitrogen [Mass/Vol] 12 mg/dL Normal 7-25 [facility] Comment on above: Performed By: #### 0 0121 #### [facility] [address] [place] [address], [facility] Vital Signs Date Time Vital Sign Value Performing Clinician Facility 01-12-2024 13: Body height 177.8 cm [facility] 01-12-2024 13: Body mass index (BMI) [Ratio] 18.5 kg/m2 [facility] 01-12-2024 13: Body weight 58.57 kg [facility] 01-12-2024 13:29 Diastolic blood pressure 90 mm[Hg] [facility] 01-12-2024 13: Heart rate 81 /min [facility] 01-12-2024 13:29-0400 Respiratory rate 12 /min [facility] 01-12-2024 13:29-0400 Systolic blood pressure 146 mm[Hg] [facility] 06-10-2023 08:30-0400 Body height 177.8 cm Harvey Ball Other [facility] Other 06-10-2023 08:30-0400 Body mass index (BMI) [Ratio] 18.42 kg/m2 Harvey Ball Other [facility] Other 06-10-2023 08:30-0400 Body weight 58.24 kg Harvey Ball Other [facility] Other 06-10-2023 08:30-0400 Diastolic blood pressure 75 mm[Hg] Harvey Ball Other [facility] Other 06-10-2023 08:30-0400 Respiratory rate 12 /min Harvey Ball Other [facility] Other 06-10-2023 08:30-0400 Systolic blood pressure 149 mm[Hg] Harvey Ball Other [facility] Other 12-25-2022 09:45-0400 Body height 177.8 cm Harvey Ball Other [facility] Other 12-25-2022 09:45-0400 Body mass index (BMI) [Ratio] 18.85 kg/m2 Harvey Ball Other [facility] Other 12-25-2022 09:45-0400 Body weight 59.6 kg Harvey Ball Other [facility] Other 12-25-2022 09:45-0400 Diastolic blood pressure 87 mm[Hg] Harvey Ball Other [facility] Other 12-25-2022 09:45-0400 Respiratory rate 16 /min Harvey Ball Other [facility] Other 12-25-2022 09:45-0400 Systolic blood pressure 132 mm[Hg] Harvey Ball Other [facility] Other 05-16-2022 11:20-0400 Body height 177.8 cm Lali Ramon Other [facility] Other 05-16-2022 11:20-0400 Body mass index (BMI) [Ratio] 17.22 kg/m2 Lali Ramon Other [facility] Other 05-16-2022 11:20-0400 Body temperature 98 [degF] Lali Ramon Other [facility] Other 05-16-2022 11:20-0400 Body weight 54.43 kg Lali Ramon Other [facility] Other 05-16-2022 11:20-0400 Diastolic blood pressure 93 mm[Hg] Lali Bajwaler Other [facility] Other 05-16-2022 11:20-0400 Respiratory rate 18 /min Lali Ramon Other [facility] Other 05-16-2022 11:20-0400 SaO2% (BldA) [Mass fraction] 100 % Lali Ramon Other [facility] Other 05-16-2022 11:20-0400 Systolic blood pressure 134 mm[Hg] Lali Ramon Other [facility] Other Encounters Encounter Date Encounter Type Care Provider Facility Start: 01-22-2024 End: 01-22-2024 ambulatory Harvey Stover Facility:[facility] Start: 01-22-2024 End: 01-22-2024 ambulatory DO Harvey Stover Work Phone: [facility] Work Phone: Start: 01-22-2024 End: 01-22-2024 Patient encounter procedure DO Harvey Stover Work Phone: [facility] Work Phone: Start: 01-12-2024 End: 01-12-[address] [facility] Work Phone: Start: 01-12-2024 End: 01-12-2024 Patient encounter procedure [facility] Work Phone: Start: 12-21-2023 Non-patient / Non-visit [facility] [employer] Work Phone: Start: 09-15-2023 End: 09-15-2023 ambulatory REGULO [facility] Start: 06-12-2023 End: 06-12-2023 ambulatory Harvey Stover Other [facility] Other Start: 06-12-2023 Telephone encounter Harvey Stover [facility] Start: 06-10-2023 End: 06-10-2023 ambulatory Harvey Stover Other [facility] Other Start: 06-10-2023 Encounter for genera l adult medical examination without abnormal findings Harvey Stover [facility] Start: 06-10-2023 Periodic preventive med est patient 40-64yrs Harvey Stover [facility] Start: 03-19-2023 End: 03-19-2023 ambulatory REGULO [facility] Start: 12-25-2022 End: 12-25-2022 ambulatory Harvey Stover Other [facility] Other Start: 12-25-2022 Office outpatient vi sit 15 minutes Harvey Stover [facility] Start: 05-16-2022 End: 05-16-2022 ambulatory Lali Ramon Other [facility] Other Start: 05-16-2022 Office outpatient ne w 20 minutes Lali Ramon [facility] Start: 07-03-2021 End: 07-03-[address] HARVEY STOVER Facility:[facility]1 Procedures Date Procedure Procedure Detail Performing Clinician Start: 09-15-2023 Follow-up visit Follow-up REGULO HENRY Plan of Treatment Date Care Activity Detail Author Comprehensive metabo lic 1999 panel - Serum or Plasma [facility] MRA Head vessels WO contrast [facility] Patient Education Low back pain in adults [facility] Work Phone: US.[email or web address] Carotid a rteries - bilateral [facility] Immunizations Immunization Date Immunization Notes Care Provider Jona lynch 03-20-2010 diphtheria, tetanus toxoids and acellular pertussis vaccine, unspecified formulation Harvey Stover Other [facility] Payers Date Payer Category Payer Self-pay 2024 Unknown [id number] 1965 Unknown [id number] 1961 Unknown [id number] Unknown [id number] [id number] Social History Date Type Detail Facility Sex Assigned At [email or web address] [facility] Other Start: 1965 Sex Assigned At Male F [facility] Progress note 09-15-2023 Note Date & Type [...] Seen by Dr. Henry and Dr. Adams [facility] Evaluation note 06-10-2023 Note Date & Type [...] due to arterial insufficiency (ICD-10 - N52.01) [facility] Other Progress note 03-19-2023 Note Date & [...] past 36 hour(s)). No follow-ups on file. [facility] Evaluation note 12-25-2022 Note Date & Type [...] tobacco use, neurogenic from remote back condition? [facility] Other Evaluation note 05-16-2022 Note Date & [...] Tooth abscess home care material was printed [facility] Other History general Narrative - Reported 03-12-2018 Note Date & Type Note Facility 03-12-2018 History general N arrative - Reported Type Medical History rheumatoid arthritis Medical History neuropathy Right and Left foot Surgical History Lumbar Back Surgery - fusion 03/12/18 Hospitalization History see surgical history [facility] Other Evaluation note Note Date & Type Note Facility Evaluation note No Information [facility] Other Evaluation note Note Date & Type Note Facility Evaluation note Diagnosis Onset Date Lumbar back pain with radicu lopathy affecting lower extremity acute Lumbar spondylosis acute Rheumatoid arthritis involvi ng both hands with positive rheumatoid factor [facility] Work Phone: Evaluation note Note Date & Type Note Facility Evaluation note Diagnosis Onset Date Hypertension acute Lumbar spondylosis acute Nicotine dependence acute Numbness and tingling of right arm acute Numbness and tingling of right leg acute Rheumatoid arthritis involvi ng both hands with positive rheumatoid factor acute Right carotid bruit [facility] Work Phone: History general Narrative - Reported Note Date & Type Note Facility History general Narrative - Reported Type Medical History rheumatoid arthritis Medical History neuropathy Right and Left foot [facility] Other Summary Purpose Family History No Family [...] content) DATE CREATED AUTHOR 07/06/2021 [facility] DATE CREATED AUTHOR AUTHOR'S ORGANIZ ATION 01/12/2022 [facility] DATE CREATED AUTHOR AUTHOR'S ORGANIZ ATION 12/21/2023 [facility] DATE CREATED AUTHOR AUTHOR'S ORGANIZ ATION 01/23/2024 [facility] REASON FOR VISIT (unrecogniz ed [...] BE BASED ON THE PRIMARY CLINICAL RECORDS. [facility]. provides no warranty or guarantee of the accuracy or completeness of information in this document.
[2024-03-04 05:47] LABS: Hematocrit 42.4 % (42.0-54.0); Hemoglobin 14.4 g/dL (14.0-18.0); Mean Corpuscular Volume 91.4 fL (80.0-94.0); Mean Platelet Volume 11.1 fL (9.5-13.5); Platelet Count 171 10^3/uL (150-450); Red Blood Count 4.64 10^6/uL (4.70-6.10); White Blood Count 8.7 10^3/uL (4.0-11.0)
[2024-03-04 05:52] LABS: Estimated Average Glucose 117 mg/dL; Glycohemoglobin A1C 5.7 % (4.5-6.2)
[2024-03-04 05:55] LABS: Anion Gap 10.8; BUN Creatinine Ratio 11.8; Calcium 8.7 mg/dL (8.5-10.1); Carbon Dioxide 25.8 mmol/L (21.0-32.0); Chloride 101 mmol/L (98-107); Estimated GFR (African America >60 (>=60); Estimated GFR (Non-African Ame >60 (>=60); Glucose 111 mg/dL (74-106); Potassium 3.6 mmol/L (3.5-5.1); Sodium 134 mmol/L (136-145)
[2024-03-04 06:15] LABS: Thyroid Stimulating Hormone 1.055 uIU/mL (0.358-3.740)
[2024-03-04] MEDS: ASPIRIN 325 MG TABLET PO (08:41)
[2024-03-04] MEDS: HYDRALAZINE HCL 20 MG/ML VIAL 10 MG IVP (10:58)
[2024-03-04] MEDS: GABAPENTIN 300 MG CAPSULE PO ×2 (10:58→18:37)
[2024-03-04] MEDS: ENOXAPARIN SODIUM 40 MG/0.4 ML SYRINGE SUBQ (10:58)
--- NOTE | 2024-03-04 11:00 | MR_ITS ---
The [place] [id number] Patient Name: UMAIR HANCOCK MRN: [id number] date: 1965 Sex: M Assigned Patient Location: [place] Current Patient Location: [place] Accession/Order Number: [id number] Exam Date: 03/04/2024 11:00 Report Date: 03/04/2024 13:30 At the request of: BRODY KIRKLAND Procedure: MR head/brain wo con MRI BRAIN WITHOUT CONTRAST, 03/04/2024. HISTORY: Hypertension. Facial droop. Headache. COMPARISON: MRI brain, 01/29/2024. TECHNIQUE: Multiplanar, multisequence MR imaging of the brain without contrast. FINDINGS: Paranasal sinuses are clear. Mastoid air cells are clear. Nasopharynx is normal. Senior [employer] spaces appear normal. Orbital contents are normal. Extracranial soft tissue structures are unremarkable. Mild generalized brain atrophy. Chronic microvascular ischemic changes in the cerebral white matter are stable. No extraaxial fluid collection. No mass effect or shift of midline. There is a focus of diffusion restriction along the posterior limb in the internal capsule on the right measuring 11 mm consistent with acute to subacute lacunar infarction. No mass effect or hemorrhage. No intracranial masses. MR/MR head/brain wo con IMPRESSION: There is a new acute to subacute lacunar infarction in the posterior limb of the internal capsule on the right measuring 11 mm. There is no mass effect or hemorrhage. Electronically authenticated by: DEBORAH MO Date: 03/04/2024 13:30
--- NOTE | 2024-03-04 11:15 | CA_ITS ---
Patient Name: UMAIR HANCOCK MR#: [id number] : 1965 Exam Date: 03/04/2024 Ordering Doctor: SHAIKH Jon KLEIN . ECHOCARDIOGRAM REPORT PROCEDURE: CA ECHO DOPPLER COMPLETE INDICATIONS: CVA, elevated BP, smoker COMPARISON: None. DESCRIPTION: COMPLETE ECHOCARDIOGRAM Real-time transthoracic echocardiography with 2D, M-mode, spectral and color flow Doppler performed. QUALITY: Technical quality was good. 70 , 126#, BP 182/95 LEFT VENTRICLE: Normal chamber size. Normal left ventricular wall thickness. Normal systolic function. LV EF: Normal left ventricular ejection fraction, (55%). DIASTOLIC: Normal diastolic function. ATRIAL SEPTUM: LEFT ATRIUM: Normal chamber size. RIGHT ATRIUM: Normal chamber size. RIGHT VENTRICLE: Normal chamber size. Normal right ventricular systolic function. TRICUSPID VALVE: Normal mobility and thickness. No stenosis with no regurgitation. MITRAL VALVE: Normal mobility and thickness. No evidence of mitral valve stenosis. Mild mitral annular calcification. No mitral regurgitation. AORTIC VALVE: Normal trileaflet appearance. No visible sclerosis. Normal leaflet mobility. No evidence of aortic valve stenosis. No aortic regurgitation. AORTIC ROOT: Normal diameter and appearance. PULMONIC VALVE: Not well visualized. No stenosis. No regurgitation. PERICARDIUM: No evidence of pericardial effusion. IVC: Collapses with inspirations. PLEURA: CONCLUSION: 1. Normal ventricular size and function. LVEF is 55%. 2. No significant valvular dysfunction. 3. No pericardial effusion. Adult Echocardiography Procedure Report Left Ventricle LVEDD (3.7 - 5.6 cm): 4.02 cm LVESD (2.2 - 4.0 cm): 2.94 cm LVIVS thickness (0.6 - 1.2 cm): 0.97 cm LVPW thickness (0.5 - 1.0 cm): 0.91 cm e': 0.13 m/s E - e': 4.44 LVOT Max Gradient: 3.07 mm[Hg], 3.65 mm[Hg] LVOT Area (cm2): 0.92 m/s Peak Velocity (LVOT): 0.88 m/s, 0.95 m/s Mean Velocity (LVOT): 0.61 m/s LVOT Diameter 1.74 cm Left Atrium LA Volume Index (2D A2C): 28.15 ml/m2 Left Atrium Systolic Dimension: 2.43 cm Mitral Valve MV E to A Ratio: 0.72 Mitral Valve A-Wave Peak Velocity: 0.81 m/s Mitral Valve E-Wave Peak Velocity: 0.58 m/s Right Ventricle Aorta AO Root Diam: 3.35 cm Aortic Valve AoV Area (Peak Hussein): 1.62 cm2, 1.49 cm2, 1.77 cm2 AoV Area (VTI): 1.60 cm2, 1.46 cm2, 1.76 cm2 Peak Velocity(Antegrade Flow): 1.40 m/s, 1.29 m/s Peak Gradient(Antegrade Flow): 7.89 mm[Hg], 6.64 mm[Hg] Mean Velocity(Antegrade Flow): 0.92 m/s, 0.82 m/s Mean Gradient(Antegrade Flow): 3.94 mm[Hg], 3.15 mm[Hg] Velocity Time Integral: 25.37 cm, 22.12 cm Tricuspid Valve Pulmonic Valve Peak Velocity: 0.77 m/s Peak Gradient: 1.94 mm[Hg], 2.82 mm[Hg] Right Atrium Right Atrium Systolic Pressure: 28.30 ml, 28.30 ml Dictated by: Harry Chaidez M.D. on 03/04/2024 at 18:30 Approved by: Harry Chaidez M.D. on 03/04/2024 at 18:32
--- NOTE | 2024-03-04 11:22 | PM.HP ---
HPI H&P: HPI History of Present Illness Chief complaint: neck pain, left side numbnees, high bp Narrative: 58 y o male came to ER last night for slurred speech and left upper extremity and lower extremity numbness. Patient also reports unsteady gait and poor balance that has been ongoing for a few weeks. He has chronic neck pain and right hand numbness in ulnar nerve distribution that is unchanged. He had an outpatient MRI of brain to rule out CVA for unsteady gait/poor balance along with right hand numbness that did not show any evidence of stroke. Patient is a poor historian and it was very difficult to obtain specific information from him related to his symptoms. He currently has no left sided numbness and his speech is back to its baseline. Patient denies prior history of hypertension, hyperlipidemia or type 2 diabetes. He currently smokes cigarettes. Workup in ER revealed possible left temporal subacute infarct on CT head. Patient also had accelerated hypertension with blood pressure as high as 190/100. Patient was admitted for stroke workup after initial consultation with telestroke. Opioid HPI Opioid Management Most Recent Opioid Data: Last Pain Scale 0 03/04/24 04:19 Last Pain Assessment 03/04/24 10:00 Last ORT Total Score 0 03/04/24 00:16 Last ORT Risk Category Low Risk 03/04/24 00:16 Review of Systems ROS Status of ROS 10 or more systems reviewed and unremarkable except as noted in history and below PFSH [facility] Medical History (Updated 03/04/24 @ 11:36 by Shaikh Lacho MD) Chronic neck pain ?M54.2 - Cervicalgia (ICD-10) ?G89.29 - Other chronic pain (ICD-10) Numbness of left hand ?R20.0 - Anesthesia of skin (ICD-10) Smoker ?F17.200 - Nicotine dependence, unspecified, uncomplicated (ICD-10) Neuropathy ?G62.9 - Polyneuropathy, unspecified (ICD-10) Rheumatoid arthritis ?M06.9 - Rheumatoid arthritis, unspecified (ICD-10) Pneumothorax ?J93.9 - Pneumothorax, unspecified (ICD-10) Surgical History (Updated 03/04/24 @ 00:29 by Keisha Cavazos) Previous back surgery ?Z98.890 - Other specified postprocedural states (ICD-10) Family History (Updated 03/04/24 @ 00:29 by Keisha Cavazos) Mother Family history of CHF (congestive heart failure) Family history of hypertension Family history of myocardial infarction Father Family history of cancer Social History (Updated 03/04/24 @ 00:30 by Keisha Cavazos) Within the past year, how often did you have a drink containing alcohol: never Within the past year, how often did you have six or more drinks on one occasion: never Score interpretation: A score less than 4 is consistent with normal alcohol consumption. Smoking status: Current every day smoker Non-prescribed substance use: denies use Previous occupational history: disability Known occupational exposures/hazards: No Highest level of school completed/degree received: high school graduate Do you want help with school or training: No Are you now , , , , never or living with a partner: In a typical week, how many times do you talk on the telephone with family, friends, or neighbors: 3 or more times per week How often do you get together with friends or relatives: 3 or more times per week How often do you attend nondenominational or latter-day services: never Do you belong to any clubs or organizations such as nondenominational groups unions, [email or web address] or athletic groups, or school groups: no Total score: 2 Score interpretation: A score of greater than or equal to 2 indicates the lowest level of social isolation. Little interest or pleasure in doing things: not at all Feeling down, depressed, or hopeless: not at all Feel stressed/tense/nervous/anxious/difficulty sleeping: not at all Due to disability, difficulty making decisions: No Do you think of yourself as: straight/heterosexual Gender Identity: male Meds Home Medications and Allergies Home Medications ?Medication ?Instructions ?Recorded ?Confirmed ?Type gabapentin 300 mg capsule 300 mg PO Q8H neuropathy 03/03/24 03/04/24 History nabumetone 750 mg tablet 750 mg PO BID arthritis 03/03/24 03/04/24 History sildenafil 100 mg tablet 100 mg PO Q24H sexual activity 03/03/24 03/04/24 History rosuvastatin 20 mg tablet 20 mg PO DAILY 03/04/24 03/04/24 History Allergies Allergy/AdvReac Type Severity Reaction Status Date / Time No Known Drug Allergies Allergy Verified 03/03/24 20:53 Exam Constitutional Vital Signs, click to edit/add: Last Vital Signs Temp 98.0 F 03/04/24 08:18 Pulse 66 03/04/24 10:00 Resp 18 03/04/24 08:18 BP 182/95 H 03/04/24 10:58 Pulse Ox 96 03/04/24 08:18 O2 Del Method Room Air 03/04/24 08:18 Documenting provider has reviewed patient's vital signs: yes Common normals: no apparent distress and oriented x3 General appearance: cooperative HENMT Common normals: normocephalic and head/scalp atraumatic Head and scalp: normocephalic and atraumatic Eye Common normals: conjunctivae normal and no scleral icterus Conjunctiva: conjunctiva(e) normal Respiratory Common normals: normal respiratory effort and clear to auscultation bilaterally Effort & inspection: able to speak in complete sentences Auscultation: clear to auscultation bilaterally Cardio Common normals: regular rate, S1 normal heart sound and S2 normal heart sound Rate: regular rate Heart sounds: S1 normal and S2 normal GI Common normals: Normal to inspection, nondistended, normoactive bowel sounds present, soft to palpation, non-tender and no hepatosplenomegaly Palpation: soft and no hepatosplenomegaly Extremity Common normals: no clubbing, cyanosis or edema Neuro Common normals: oriented x3, moves all extremities and no focal motor deficits Sensorium/orientation: awake and alert Coordination/balance: efbsvi-mv-xfkd test normal, khgb-qn-rnik test normal and sways with eyes open Speech: speech normal Gait (neuro): ataxic Coordination: gtczgr-fd-vurs test normal, jisc-we-gazb test normal and rapid alternating movement UE normal Other: numbness in left hand - ulnar nerve distribution Psych Common normals: mental status grossly normal, denies hallucinations, denies homicidal ideation and denies suicidal ideation Results Labs Labs: Short CBC 03/03/24 03/04/24 Range/Units 21:00 05:09 WBC 9.5 8.7 (4.0-11.0) 10^3/uL Hgb 14.9 14.4 (14.0-18.0) g/dL Hct 43.2 42.4 (42.0-54.0) % Plt Count 184 171 (150-450) 10^3/uL BMP 03/03/24 03/04/24 21:00 05:09 Sodium 135 L 134 L Potassium 3.6 3.6 Chloride 99 101 Carbon Dioxide 27.5 25.8 BUN 7.0 9.0 Creatinine 0.85 0.76 Glucose 122 H 111 H Calcium 9.0 8.7 Assessment and Plan Assessment and Plan (1) Acute ischemic stroke: Assessment and Plan: Acute ischemic stroke on CTH. MRI brain pending. CTA head/neck - no sig stenosis/thrombosis. ECHO ordered to r/o PFO, intracardiac thrombus Tele monitoring to r/o Afib. Neuro checks to ensure no neurological decline. On ASA, started on lipitor. Tele stroke consult. (2) Chronic neck pain: Assessment and Plan: DJD changes on CT neck. Scheduled for outpatient MRI neck. C/w gabapentin (3) Hypertensive emergency: Assessment and Plan: No prior hx of HTN. BP consistently above 180/90 Presented with left UE/LE numbness/slurred speech. CTH - subacute ischemic CVA Left temporal lobe IV hydralazine as needed. Started on amlodipine 10 mg. Needs close monitoring of his BP. Will allow for permissive HTN and gradual lowering of his BP, goal is 160/90 (4) Smoker: Assessment and Plan: Counseled on smoking cessation (5) HLD (hyperlipidemia): Assessment and Plan: Started on lipitor. Will need outpatient lipid panel. Plan Will require inpatient treatment for his clinical presentation as patient presented with neurological symptoms, evidence of subacute ischemic stroke on CTH and HTN emergency. He is at high risk of clinical worsening/neurological decline and will need inpatient monitoring and treatment for his stroke and HTN. I anticipate him to require 2 midnights of inpatient treatment of his acute/critical illness.
--- NOTE | 2024-03-04 12:14 | CM.NOTE ---
Rounds made with Dr. Monk, awaiting teleneuro consult for further recommendations. Pt will have PT, OT and speech evaluations also for further discharge planning.
[2024-03-04] MEDS: AMLODIPINE BESYLATE 5 MG TABLET 10 MG PO (12:39)
[2024-03-04] MEDS: ACETAMINOPHEN 325 MG TABLET 650 MG PO (12:42)
--- NOTE | 2024-03-04 14:30 | SWNOTE1 ---
It was recommended that pt get outpt physical therapy. SW spoke to pt, pt's , and pt's daughter in room. Pt is agreeable to outpt. Pt's would like [facility] in [place] if they take her insurance (pt is on her insurance). SW called and spoke to [facility] and they took down information and will need script sent over. They will then run insurance and attempt to get an authorization. Once they get the authorization they will call pt to schedule. SW to send over script and face sheet. SW updated family and let them know to call SW or contact PCP if [facility] does not work out. They voiced understanding.
[2024-03-04] MEDS: CLOPIDOGREL BISULFATE 75 MG TABLET PO (16:23)
[2024-03-04] MEDS: ATORVASTATIN CALCIUM 40 MG TABLET PO (22:00)
[2024-03-05] VITALS (7 sets, daily range): BP systolic 146; BP diastolic 92; PULSE 74–99; TEMP 36.6; O2SAT 95–97
[2024-03-05] MEDS: GABAPENTIN 300 MG CAPSULE PO ×2 (01:32→09:00)
[2024-03-05] MEDS: ACETAMINOPHEN 325 MG TABLET 650 MG PO (01:34)
[2024-03-05] MEDS: ENOXAPARIN SODIUM 40 MG/0.4 ML SYRINGE SUBQ (08:09)
[2024-03-05] MEDS: CLOPIDOGREL BISULFATE 75 MG TABLET PO (08:09)
[2024-03-05] MEDS: AMLODIPINE BESYLATE 5 MG TABLET 10 MG PO (08:10)
[2024-03-05] MEDS: ASPIRIN 81 MG TAB.CHEW PO (08:16)
--- NOTE | 2024-03-05 09:51 | PT.DAILY ---
Physical Therapy Daily Note PT Daily Note/Assess Start: 03/04/24 12:00 Freq: Status: Active Protocol: Document 03/05/24 09:46 [facility] (Rec: 03/05/24 09:48 [id number]) Physical Therapy Daily Note/Assessment Time In/Time Out Time In 09:00 Time Out 09:15 Pain In Pain N/A Pain Out Pain N/A Subjective Subjective Pt supine upon arrival. Agreeable to PT. Denies OCONNOR this morning. Therapeutic Activity Time Therapeutic Activity Minutes (minutes) 10 Therapeutic Activity Units 1 Therapeutic Activity Treatment Bed Mobility Ability Independent Therapeutic Activity Comments Supine>sit IND. Amb 150' in halls without AD, SUP with occ lateral LOB with self correction. Pt ascends/ descends 12 steps with 1 UE support on handrail and no LOB . Amb back to room another 150 ' back to his room without AD. Total Physical Therapy Time Total Therapy Minutes 10 Total Physical Therapy Units 1 Edit Result 03/05/24 09:46 [facility] (Rec: 03/05/24 09:51 [id number]) Physical Therapy Daily Note/Assessment Subjective Subjective Pt supine upon arrival. Agreeable to PT. Denies OCONNOR this morning. Up ad waldemar in room. Therapeutic Activity Treatment Therapeutic Activity Comments Supine>sit IND. Amb 150' in halls without AD, SUP with occ lateral LOB with self correction. Pt ascends/ descends 12 steps with 1 UE support on handrail and no LOB . Amb back to room another 150 ' back to his room without AD but occ hand placement on handrail in sexton. Rhomberg activities as noted in neuro tab. Returned supine upon completion with call light in reach and needs met. Neuromuscular Reeducation Neuromuscular Reeducation Minutes ( 0 minutes) Neuromuscular Reeducation Units 4 Neuromuscular Reeducation modified rhomberg standing with arm raises CGA, CROM 5x ea with CGA with occ LOB with self correction. Total Physical Therapy Time Total Physical Therapy Units 5 Summary Daily Note Summary Improved gait endurance. Good tolerance and strength noticed with stair training. Cont to have occ LOB but able to self correct. Would benefit from OP PT upon DC. Plan is to set this up at [facility] in [place] per pt.
--- NOTE | 2024-03-05 09:51 | PT.DAILY ---
Physical Therapy Daily Note PT Daily Note/Assess Start: 03/04/24 12:00 Freq: Status: Active Protocol: Document 03/05/24 09:46 [facility] (Rec: 03/05/24 09:48 [id number]) Physical Therapy Daily Note/Assessment Time In/Time Out Time In 09:00 Time Out 09:15 Pain In Pain N/A Pain Out Pain N/A Subjective Subjective Pt supine upon arrival. Agreeable to PT. Denies OCONNOR this morning. Therapeutic Activity Time Therapeutic Activity Minutes (minutes) 10 Therapeutic Activity Units 1 Therapeutic Activity Treatment Bed Mobility Ability Independent Therapeutic Activity Comments Supine>sit IND. Amb 150' in halls without AD, SUP with occ lateral LOB with self correction. Pt ascends/ descends 12 steps with 1 UE support on handrail and no LOB . Amb back to room another 150 ' back to his room without AD. Total Physical Therapy Time Total Therapy Minutes 10 Total Physical Therapy Units 1 Edit Result 03/05/24 09:46 [facility] (Rec: 03/05/24 09:51 [id number]) Physical Therapy Daily Note/Assessment Subjective Subjective Pt supine upon arrival. Agreeable to PT. Denies OCONNOR this morning. Up ad waldemar in room. Therapeutic Activity Treatment Therapeutic Activity Comments Supine>sit IND. Amb 150' in halls without AD, SUP with occ lateral LOB with self correction. Pt ascends/ descends 12 steps with 1 UE support on handrail and no LOB . Amb back to room another 150 ' back to his room without AD but occ hand placement on handrail in sexton. Rhomberg activities as noted in neuro tab. Returned supine upon completion with call light in reach and needs met. Neuromuscular Reeducation Neuromuscular Reeducation Minutes ( 0 minutes) Neuromuscular Reeducation Units 4 Neuromuscular Reeducation modified rhomberg standing with arm raises CGA, CROM 5x ea with CGA with occ LOB with self correction. Total Physical Therapy Time Total Physical Therapy Units 5 Summary Daily Note Summary Improved gait endurance. Good tolerance and strength noticed with stair training. Cont to have occ LOB but able to self correct. Would benefit from OP PT upon DC. Plan is to set this up at [facility] in [place] per pt.
--- NOTE | 2024-03-05 11:06 | P.DS_ITS ---
DS: Providers Provider Date of admission: 03/04/24 00:03 Primary care physician: Harvey Stover DO Admitting clinician: Shaikh Lacho Attending physician on admission: Shaikh Lacho Consults: 03/03/24 23:26 Consult to Telestroke Routine Reason for consultation: Left hand weakness, ataxia 03/04/24 09:00 Occupational Therapy Eval and Treat Routine Reason for consultation: Left hand weakness, Ataxia Physical Therapy Eval and Treat Routine Reason for consultation: Left hand weakness, ataxia Has provider been notified: No Speech Therapy Eval and Treat Routine Reason for consultation: left facial drooop - subtle Has provider been notified: No Attending physician on discharge: Shaikh Lacho Discharging clinician: Shaikh Lacho Anticipated date of discharge: 03/05/24 DS: Diagnosis Discharge Diagnosis (1) Acute ischemic stroke: (2) Chronic neck pain: (3) Hypertensive emergency: (4) Smoker: (5) HLD (hyperlipidemia): Qualifiers: Hyperlipidemia type: unspecified Qualified Code(s): E78.5 - Hyperlipidemia, unspecified DS: Summary Hospital Course Hospital Course: 58-year-old male presented to ER with left upper and lower extremity weakness/numbness along with ataxic gait and was admitted for stroke workup. Workup revealed subacute lacunar stroke in the posterior limb of internal capsule. Patient also had uncontrolled hypertension consistent with hypertensive emergency upon arrival and was treated with IV hydralazine as needed. His blood pressure improved with addition of oral amlodipine. He was also started on aspirin, Plavix and Lipitor 40 mg once daily. He was seen by telestroke and was recommended to use Plavix for 21 days and use low-dose aspirin indefinitely. There was no evidence of large vessel occlusion/stenosis/thrombosis on CTA head and neck. Echocardiogram did not reveal LV thrombus/PFO. No evidence of A-fib on telemetry. Patient's neurological symptoms improved but he continued to have mild difficulty with balance. He was evaluated by physical therapy/Occupational Therapy and speech therapy. Stable for discharge. Patient has to follow-up with PCP in 1 week and vascular neurology as outpatient in 2 to 4 weeks. Educated on smoking cessation. Also educated on worrisome signs and symptoms and instructed patient to come to ED as soon as he has new onset neurological symptoms Time Spent with Patient Time attestation: Total time spent providing and/or coordinating discharge services: Quality: Stroke Onset of Symptoms Date: 03/03/24 Symptom Onset Unknown: Yes Pt Provided Written Stroke Discharge Instructions: Patient given written information Exam Constitutional Vital Signs, click to edit/add: Last Vital Signs Temp 97.9 F 03/05/24 06:00 Pulse 90 03/05/24 09:55 Resp 18 03/05/24 06:00 BP 146/92 H 03/05/24 06:00 Pulse Ox 97 03/05/24 06:00 O2 Del Method Room Air 03/05/24 06:00 Documenting provider has reviewed patient's vital signs: yes Common normals: no apparent distress and oriented x3 General appearance: cooperative HENMT Common normals: normocephalic and head/scalp atraumatic Head and scalp: normocephalic and atraumatic Eye Common normals: conjunctivae normal and no scleral icterus Conjunctiva: conjunctiva(e) normal Respiratory Common normals: normal respiratory effort and clear to auscultation bilaterally Effort & inspection: able to speak in complete sentences Auscultation: clear to auscultation bilaterally Cardio Common normals: regular rate, S1 normal heart sound and S2 normal heart sound Rate: regular rate Heart sounds: S1 normal and S2 normal GI Common normals: Normal to inspection, nondistended, normoactive bowel sounds present, soft to palpation, non-tender and no hepatosplenomegaly Palpation: soft and no hepatosplenomegaly Extremity Common normals: no clubbing, cyanosis or edema Neuro Common normals: oriented x3, moves all extremities and no focal motor deficits Sensorium/orientation: awake and alert Coordination/balance: ixedwr-si-hhlj test normal, ryca-tt-zsvb test normal and sways with eyes open Speech: speech normal Gait (neuro): ataxic Coordination: yzqcdw-fa-rpxr test normal, ymoi-rr-wrmy test normal and rapid alternating movement UE normal Other: numbness in left hand - ulnar nerve distribution Psych Common normals: mental status grossly normal, denies hallucinations, denies homicidal ideation and denies suicidal ideation Discharge Plan Discharge Disposition: Home, Self-Care Condition: Good Discharge Medications: New aspirin 81 mg tablet,chewable 81 mg PO DAILY Qty: 30 0RF atorvastatin [Lipitor] 40 mg tablet 40 mg PO DAILY Qty: 30 0RF amlodipine [Norvasc] 5 mg tablet 5 mg PO DAILY Qty: 30 0RF clopidogrel [Plavix] 75 mg tablet 75 mg PO DAILY Qty: 19 0RF Continued gabapentin 300 mg capsule 300 mg PO Q8H sildenafil 100 mg tablet 100 mg PO Q24H PRN (Reason: sexual activity) Discontinued nabumetone 750 mg tablet 750 mg PO BID rosuvastatin 20 mg tablet 20 mg PO DAILY Activity: increase activity as tolerated Diet: advance to your usual diet Print Language: Iranian Patient Instructions: Aspirin (By mouth), Amlodipine (By mouth), Atorvastatin (By mouth), Clopidogrel (By mouth), Ischemic Stroke (DC) Forms: Portal Instructions Follow Up Appointments: Call Dr Pool Stover office ([phone]) Thursday for follow up this week- Call Thursday to follow up with [facility] ([phone]) in 4-6 weeks Discharge Date/Time: 03/05/24 10:30
--- NOTE | 2024-03-07 15:34 | CM.DCFOLLOWU ---
Person spoke with:patient How are you feeling? alright How is your pain? still pain in neck, should, leg Did you understand your discharge instructions? yes Do you have any questions about your discharge instructions? no Were you given any prescriptions at discharge? yes Were you able to get your prescriptions filled? yes Do you understand how to take your medications as ordered? yes Do you have any questions about your follow up appointment and do you plan to keep your follow up appointment? has follow up Thursday with Dr. Stover, has outpt PT apt with GREGOR[facility] tomorrow. Has to call and schedule with [facility] for follow up Is there anything else that you would like to discuss? no Questions/Comments/Concerns/Other: no
== END 2024-03-05 10:30 | disposition home or self-care (01) | DRG 65 ==
LOC: ER 23:27 → MS 03-04 00:03
PROVIDERS: Internal Medicine; Registered Nurse; Admitting Provider Family Medicine; Emergency Provider Emergency Medicine; PCP Internal Medicine; Visit Provider Family Medicine
DX: I63.9 Cerebral infarction, unspecified (principal); I16.1 Hypertensive emergency; G89.29 Other chronic pain; M54.2 Cervicalgia; F17.210 Nicotine dependence, cigarettes, uncomplicated; E78.5 Hyperlipidemia, unspecified; M06.9 Rheumatoid arthritis, unspecified; R29.702 NIHSS score 2; R27.0 Ataxia, unspecified; R53.1 Weakness; Z79.899 Other long term (current) drug therapy
CPT/HCPCS: 36415; 70450; 70496; 70498; 70551; 71045; 80048; 81001; 82607; 83036; 84443; 85025; 85027; 85610; 85730; 92507; 92523; 93005; 93306; 94761; 96372; 96374; 97112; 97161; 97165; 97530; 99285; Q3014; Q9967

== ENCOUNTER 2024-03-22 12:15 | Outpatient (OUT) | payer BC, SELFPAY ==
--- NOTE | 2024-03-22 12:19 | MR_ITS ---
[place] [id number] Patient Name: UMAIR HANCOCK MRN: [id number] date: 1965 Sex: M Assigned Patient Location: MRI Current Patient Location: Accession/Order Number: [id number] Exam Date: 03/22/2024 12:23 Report Date: 03/23/2024 13:16 At the request of: CHINYERE YOUNGBLOOD Procedure: MR cervical spine wo con EXAMINATION: MR cervical spine wo con HISTORY: neck pain ; right upper extremity numbness and tingling COMPARISON: No relevant comparison available. TECHNIQUE: A variety of imaging planes and parameters were utilized for visualization of suspected pathology without and/or with intravenous Dotarem contrast based on examination type. FINDINGS: CRANIOCERVICAL AREA: Normal foramen magnum with no Chiari malformation. PARASPINAL AREA: Normal with no visible mass. BONES: No fracture, pars defect, or osseous lesion. CORD: Normal caliber, contour, and signal intensity. CERVICAL DISC LEVELS: C2-C3: Early degenerative disc disease is present without focal protrusion or neural impingement. C3-C4: Early degenerative disc disease is present without focal protrusion or neural impingement. C4-C5: Early degenerative disc disease is present without focal protrusion or neural impingement. C5-C6: Moderate central canal narrowing. Moderate-marked right and moderate left foramen narrowing. Moderate diffuse disc bulging with mild disc at reduction. Mild degenerative facet arthropathy bilaterally. C6-C7: Mild central canal narrowing. Mild diffuse disc bulging, left greater than right. Moderate-marked left foramen narrowing. Mild degenerative facet arthropathy. C7-T1:. No significant central canal narrowing. Mild foramen narrowing bilaterally. No significant facet arthropathy. MR/MR cervical spine wo con IMPRESSION: 1. Moderate marked right foramen narrowing at C5-6 which may contribute to patient's symptoms. 2. Moderate-marked left foramen narrowing at C6-7. Electronically authenticated by: ISRAEL MOHR Date: 03/23/2024 13:16
== END 2024-03-22 12:16 | disposition home or self-care (01) ==
LOC: MRI 12:15
PROVIDERS: PCP Internal Medicine; Visit Provider Internal Medicine
DX: M54.2 Cervicalgia (principal); M47.22 Other spondylosis with radiculopathy, cervical region; R20.0 Anesthesia of skin; R20.2 Paresthesia of skin
CPT/HCPCS: 72141

== ENCOUNTER 2024-06-16 07:33 | Outpatient (OUT) | payer BC, SELFPAY ==
--- OUTSIDE RECORDS SUMMARY | 2024-06-16 07:37 | XMS_ITS | CCD ---
Author Organization [facility] Care Team Providers Care Pharmacy Technician Per Diem Name Role Phone DR HARVEY STOVER Admitting Unavailable BALL, DR GABRIEL Attending Unavailable BALL, DR GABRIEL Primary Care Unavailable BALL, DR GABRIEL Consulting Unavailable RamonLali Unavailable Harvey Stover Unavailable DO Harvey Stover Primary Care Provider [phone] DO Harvey Stover Attending Provider Harvey Stover Attending Unavailable Ck, Harvey Primary Care Unavailable Ck, Harvey Admitting Unavailable REGULO HENRY Attending Unavailable REGULO HENRY Attending Unavailable BLACKSTON, LAKESHA Escoto Attending Unavailable FAWWAD, RUFFIN Referring Unavailable BRINK, GUILLAUME Attending Unavailable FAWWAD, RUFFIN Referring Unavailable KELBLEY, ROXANA Attending Unavailable FAWWAD, RUFFIN Referring Unavailable KELBLEY, ROXANA Attending Unavailable FAWWAD, RUFFIN Referring Unavailable KELBLEY, ROXANA Attending Unavailable FAWWAD, RUFFIN Referring Unavailable NIK BAUTISTA Attending Unavailable FAWWAD, RUFFIN Referring Unavailable BALL, HARVEY E Primary Care Unavailable BALL, HARVEY E Referring Unavailable BALL, HARVEY E Primary Care Unavailable BALL, HARVEY E Referring Unavailable BALL, HARVEY E Primary Care Unavailable BALL, HARVEY E Referring Unavailable BALL, HARVEY E Primary Care Unavailable BALL, HARVEY E Referring Unavailable BALL, HARVEY E Primary Care Unavailable LEELA REED Attending Unavailable BALL, HARVEY E Referring Unavailable BALL, HARVEY E Primary Care Unavailable Medications Current Medications Medication Drug Class(es) Dates Sig (Normalized) Sig (Original) amLODIPine 5 mg oral tablet (5 sources) Dihydropyridine Calcium Channel Rain Start: 03-08-2024 End: 04-04-2024 take 5 mg by mouth once daily Amlodipine Active 5 MG PO Daily 90 90 April 04, 2024 5:20pm aspirin 81 mg delayed release oral tablet (5 sources) Platelet Aggregation Inhibitor, Nonsteroidal Anti-inflammatory Drug Start: 03-08-2024 End: 04-04-2024 take 1 tablet by mouth once daily Aspirin (Adult Aspirin Regimen) 81 mg tablet,delayed release (DR/EC) Active 81 MG PO Daily 90 April 04, 2024 5:21pm atorvastatin 40 mg oral tablet (5 sources) HMG-CoA Reductase Inhibitor Start: 03-08-2024 End: 04-04-2024 take 40 mg by mouth once daily Atorvastatin Active 40 MG PO Daily 90 April 04, 2024 5:21pm clopidogrel 75 mg oral tablet (3 sources) P2Y12 Platelet Inhibitor Start: 03-08-2024 take 75 mg by mouth once daily Clopidogrel Active 75 MG PO Daily March 08, 2024 12:00am gabapentin 300 mg oral capsule (10 sources) Anti-epileptic Agent Start: 12-21-2023 End: 03-25-2024 take 300 mg by mouth twice daily Gabapentin Active 300 MG PO Twice daily 180 90 March 25, 2024 1:01pm Start: 12-25-2022 take 1 capsule by mo ut twice daily Gabapentin 300 MG 1 capsule Orally twice daily Dec, Active Start: 12-25-2022 take 1 capsule by mo uth once at bedtime Gabapentin 300 MG 1 capsule Orally q HS for 30 days Dec, Active losartan potassium 25 mg oral tablet (4 sources) Angiotensin 2 Receptor Rain Start: 03-11-2024 End: 04-11-2024 take 25 mg by mouth once daily Losartan Active 25 MG PO Daily April 11, 2024 8:45am sildenafil 100 mg oral tablet (14 sources) Phosphodiesterase 5 Inhibitor Start: 12-21-2023 End: 04-22-2024 take 0.5-1 tablets by mouth once daily as needed Sildenafil Active 100 MG PO Once 6 April 22, 2024 12:40pm 1/2 to 1 tablet Orally Once a day, PRN ED Start: 12-25-2022 take 0.5-1 tablets b y mouth once daily as needed Sildenafil Citrate 100 MG 1/2 to 1 tablet Orally Once a day, PRN ED for 30 days Dec, Active Completed/Discontinued Medications Medication Drug Class(es) Dates Sig (Normalized) Sig (Original) nabumetone 750 mg oral tablet (8 sources) Nonsteroidal Anti-inflammatory Drug Start: 12-21-2023 End: 03-08-2024 take 750 mg by mouth twice daily Nabumetone Discontinued 750 MG PO Twice daily December 21, 2023 12:00am March 08, 2024 5:04pm take 750 mg by mouth twice daily Nabumetone 750 MG as directed Orally Twice a day Active penicillin v potassium 500 mg oral tablet (4 sources) Start: 05-16-2022 take 1 tablet by mouth every twelve hours Penicillin V Potassium 500 MG 1 tablet Orally Twice a day for 10 day(s) May, Not-Taking predniSONE 20 mg oral tablet (7 sources) Start: 01-12-2024 End: 03-08-2024 Prednisone Discontinued 20 MG PO As Directed January 12, 2024 12:00am March 08, 2024 5:05pm 1 tab tid w/ food x 3 days, then bid w/ food x 3 days, then qd w/ food x 3 days Start: 12-25-2022 predniSONE 20 MG 1 tablet Orally tid w/ food x 3 days, then bid w/ food x 3 days, then qd w/ food x 3 days for 9 days Dec, Not-Taking rosuvastatin calcium 20 mg oral tablet (4 sources) HMG-CoA Reductase Inhibitor Start: 01-12-2024 End: 03-08-2024 take 20 mg by mouth once daily Rosuvastatin Discontinued 20 MG PO Daily January 12, 2024 12:00am March 08, 2024 5:05pm Problems Active Problems Problem Classification Problem Date Documented Da te Episodic/Chronic Acute cerebrovascular disease (7 sources) Lacunar infarction; Translations: [Other cerebral infarction due to occlusion or stenosis of small artery] 03-09-2024 Chronic Chronic obstructive pulmonary disease and bronchiectasis (5 sources) Mucopurulent chronic bronchitis; Translations: [Mucopurulent chronic bronchitis] Chronic Disorders of lipid metabolism (6 sources) Hypercholesterolemia ; Translations: [Pure hypercholesterolemia , unspecified] 03-11-2024 Chronic Essential hypertension (12 sources) Hypertensive disorder; Translations: [Essential (primary) hypertension] 01-12-2024 Chronic Immunizations and screening for infectious disease (5 sources) Encounter for immunization; Translations: [Encounter for screening for respiratory tuberculosis] Onset: 07-05-2021 Episodic Other acquired deformities (2 sources) Spondylolysis of cervical spine; Translations: [Spondylolysis, cervical region] 03-24-2024 Episodic Other acquired deformities (1 source) Spondylolysis, cervical region; Translations: [Other anomalies of spine] 06-13-2024 Episodic Other aftercare (1 source) Other correction (current) drug therapy; Translations: [OTH IRON CUTTER CURRENT DRUG THERAPY] Onset: 07-05-2021 Episodic Other and ill-defined cerebrovascular disease (3 sources) Cerebral atherosclerosis; Translations: [Cerebral atherosclerosis] 03-06-2024 Chronic Other and ill-defined cerebrovascular disease (1 source) Cerebral atherosclerosis; Translations: [Cerebral atherosclerosis] 06-13-2024 Chronic Other circulatory disease (4 sources) Carotid bruit; Translations: [Other specified symptoms and signs involving the circulatory and respiratory systems] 01-12-2024 Episodic Other circulatory disease (4 sources) Other specified symptoms and signs involving the circulatory and respiratory systems; Translations: [Other symptoms involving cardiovascular system] Onset: 01-22-2024 01-12-2024 Episodic Other male genital disorders (3 sources) Erectile dysfunction co-occurrent and due to arterial insufficiency; Translations: [Erectile dysfunction due to arterial insufficiency] Chronic Other male genital disorders (2 sources) Erectile dysfunction due to arterial insufficiency Chronic Other nervous system disorders (2 sources) Polyneuropathy, unspecified; Translations: [Polyneuropathy, unspecified] Onset: 03-07-2024 Chronic Other nervous system disorders (4 sources) Dysesthesia of face; Translations: [Other disturbances of [...] conditions (not mental disorders or infectious disease) (4 sources) Encounter for screening for malignant neoplasm of prostate; Translations: [Encounter for screening for malignant neoplasm of colon] Episodic Paralysis (7 sources) Hemiparesis; Translations: [Hemiplegia, unspecified affecting unspecified side] 03-09-2024 Chronic Residual codes; unclassified (2 sources) Pain, unspecified; Translations: [PAIN UNSPECIFIED] Onset: 07-05-2021 Episodic Rheumatoid arthritis and related disease (19 sources) Rheumatoid arthritis of wrist; Translations: [Rheumatoid arthritis with rheumatoid factor of right wrist without organ or systems involvement] Onset: 09-15-2023 Chronic Spondylosis; intervertebral disc disorders; other back problems (20 sources) Cervical spondylosis; Translations: [Other spondylosis with radiculopathy, cervical region] Chronic Spondylosis; intervertebral disc disorders; other back problems (6 sources) Low back pain; Translations: [Radiculopathy, lumbar region] 01-12-2024 Episodic Substance-related disorders (17 sources) Nicotine dependence; Translations: [Nicotine dependence, cigarettes, uncomplicated] Chronic Unclassified (1 source) Low back pain, unspecified; Translations: [Low back pain, unspecified] Onset: 03-07-2024 Unclassified (1 source) RUSS Steven Onset: 03-04-2024 Viral infection (4 sources) COVID-19; Translations: [COVID-19] Onset: 07-03-2021 Past or Other Problems Problem Classification Problem Date Documented Da te Episodic/Chronic Disorders of teeth and jaw (1 source) Periapical abscess without sinus Onset: 05-16-2022 Resolved: 05-16-2022 Episodic Unclassified (1 source) Low back pain, unspecified; Translations: [Low back pain, unspecified] Onset: 03-07-2024 Results Test Name Value Interpretation Reference Range Facil ity Orders Onlyon 03-14-2024 Orders Only [id number] Jordan Aguilar 1965 M Date Provider Department Center 03/14/2024 Craig-REGULO HENRY [facility] RHEUM Zaida Heal Family History Problem Relation Age of Onset Hypertension Mother Hypertension Sister Family Status - Relation Status Age at Mother Sister Normal [facility] Documentationon 03-09-2024 Documentation [id number] Jordan Aguilar 1965 M Date Provider Department Center 03/09/2024 [id number] ALBARRAN [facility] RHEUM Zaida Heal Family History Problem Relation Age of Onset Hypertension Mother Hypertension Sister Family Status - Relation Status Age at Mother Sister Reason for Visit and Comments: Specialty Pharmacy Note- Humira [Other] Normal [facility] C-REACTIVE PROTEINon 024 C REACTIVE PROTEIN (MG/L) IN SER/PLAS 2.7 mg/L Normal 0.0-7.0 [facility] Comment on above: Performed By: #### L [id number] ####[facility] (BEAKER)[address] [facility] [address] CBC WITH AUTO DIFFERENTIALon 03-07-2024 Basophils (Bld) [#/Vol] 0.09 10*3/uL Normal 0.00-0.20 [facility] Comment on above: Performed By: #### L [id number] ####[facility] ([facility])[address] [facility] [address] Basophils/100 WBC (Bld) 0.9 % Normal 0.0-1.0 [facility] Comment on above: Performed By: #### L [id number] ####[facility] ([facility])[address] [facility] [place] [address] Eosinophils (Bld) [#/Vol] 0.17 10*3/uL Normal 0.00-0.50 [facility] Comment on above: Performed By: #### L [id number] ####[facility] ([facility]ER)[address] [facility] [place] [address] Eosinophils/100 WBC (Bld) 1.8 % Normal 0.0-6.0 [facility] Comment on above: Performed By: #### L [id number] ####[facility] ([facility])[address] [facility] [place] [address] Erythrocyte distribution width (RBC) [Ratio] 12.7 % Normal 11.5-15.0 [facility] Comment on above: Performed By: #### L [id number] ####[facility] ([facility])[address] [facility] [place] [address] ERYTHROCYTE MEAN CORPUSCULAR HEMOGLOBIN CONCENTRATION (G/DL) BY AUTOMATED 35.1 g/dL High 32.0-35.0 [facility] Comment on above: Performed By: #### L [id number] ####[facility] (BEAKER)[address] [place] [address] Hematocrit (Bld) [Volume fraction] 44.2 % Normal 39.0-55.0 [facility] Comment on above: Performed By: #### L [id number] ####[facility] (BE[facility]ER)[address] [place] [place] [address] Hemoglobin (Bld) [Mass/Vol] 15.5 g/dL Normal 13.0-17.0 [facility] Comment on above: Performed By: #### L [id number] ####[facility] ([facility]ER)[address] [place] [address] Immature granulocytes (Bld) [#/Vol] 0.02 10*3/uL Normal 0.00-0.20 [facility] Comment on above: Performed By: #### L [id number] ####[facility] ([facility]ER)[address] [place] [address] Immature granulocytes/100 WBC (Bld) 0.2 % Normal 0.0-1.0 [facility] Comment on above: Performed By: #### L [id number] ####[facility] ([facility]ER)[address] [place] [address] Lymphocytes (Bld) [#/Vol] 2.59 10*3/uL Normal 1.20-4.00 [facility] Comment on above: Performed By: #### L [id number] ####[facility] ([facility]ER)[address] [place] [address] Lymphocytes/100 WBC (Bld) 27.0 % Normal 20.0-45.0 [facility] Comment on above: Performed By: #### L [id number] ####[facility] (BEAKER)[address] [place] [address] MCH (RBC) [Entitic mass] 30.8 pg Normal 27.0-33.0 [facility] Comment on above: Performed By: #### L [id number] ####[facility] ([facility])[address] [place], [place] [address] MCV (RBC) [Entitic vol] 87.7 fL Normal 82.0-98.0 [facility] Comment on above: Performed By: #### L [id number] ####[facility] ([facility])[address] [place], [place] [address] Monocytes (Bld) [#/Vol] 0.95 10*3/uL Normal 0.10-1.00 [facility] Comment on above: Performed By: #### L [id number] ####[facility] ([facility])[address] [place], [place] [address] Monocytes/100 WBC (Bld) 9.9 % Normal 5.0-12.0 [facility] Comment on above: Performed By: #### L [id number] ####[facility] ([facility])[address] [place] [address] Neutrophils (Bld) [#/Vol] 5.77 10*3/uL Normal 1.60-7.60 [facility] Comment on above: Performed By: #### L [id number] ####[facility] ([facility])[address] [place], [place] [address] Neutrophils/100 WBC (Bld) 60.2 % Normal 40.0-72.0 [facility] Comment on above: Performed By: #### L [id number] ####[facility] ([facility])[address] [place] [address] NRBC (PER 100 WBCS) BY AUTOMATED COUNT 0.0 % Normal 0 [facility] Comment on above: Performed By: #### L [id number] ####[facility] ([facility] [place] [address] PLATELETS (10*3/UL) IN BLOOD AUTOMATED COUNT 190 10*3/uL Normal 150-400 [facility] Comment on above: Performed By: #### L [id number] ####[facility] ([facility] [place] [address] RBC (Bld) [#/Vol] 5.04 10*6/uL Normal 4.20-5.70 [facility] Comment on above: Performed By: #### L [id number] ####[facility] ([facility])[address] [place] [address] WBC (Bld) [#/Vol] 9.59 10*3/uL Normal 4.00-10.60 [facility] Comment on above: Performed By: #### L [id number] ####[facility] ([facility])[address] [place] [address] COMPREHENSIVE METABOLIC PANE Rodrigo 03-07-2024 Albumin [Mass/Vol] 4.5 g/dL Normal 3.5-5.7 [facility] Comment on above: Performed By: #### L [id number] ####[facility] ([facility])[address] [place] [address] ALP [Catalytic activity/Vol] 90 U/L Normal 34-104 [facility] Comment on above: Performed By: #### L [id number] ####[facility] ([facility])[address] [place] [address] ALT [Catalytic activity/Vol] 14 U/L Normal 7-52 [facility] Comment on above: Performed By: #### L [id number] ####[facility] ([facility])[address] [place] [address] Anion gap [Moles/Vol] 16 mmol/L Normal 7-20 [facility] Comment on above: Performed By: #### L [id number] ####[facility] ([facility] [place] [address] AST [Catalytic activity/Vol] 16 U/L Normal 13-39 [facility] Comment on above: Performed By: #### L [id number] ####[facility] ([facility])[address] [place] [address] Bilirubin [Mass/Vol] 0.7 mg/dL Normal 0.3-1.0 [facility] Comment on above: Performed By: #### L [id number] ####[facility] ([facility] [place] [address] Calcium [Mass/Vol] 9.5 mg/dL Normal 8.6-10.3 [facility] Comment on above: Performed By: #### L [id number] ####[facility] ([facility] [place] [address] Chloride [Moles/Vol] 102 mmol/L Normal 98-107 [facility] Comment on above: Performed By: #### L [id number] ####[facility] ([facility])[address] [place] [place] [address] CO2 [Moles/Vol] 22 mmol/L Normal 21-31 [facility] Comment on above: Performed By: #### L [id number] ####[facility] ([facility] [place] [address] Creatinine [Mass/Vol] 0.86 mg/dL Normal 0.70-1.30 [facility] Comment on above: Performed By: #### L [id number] ####[facility] ([facility])[address] [place] [address] GLOMERULAR FILTRATION RATE ML/MIN/1.73 SQ M.PREDICTED 99.1 mL/min/1.73m*2 Normal >60.0 [facility] Comment on above: Result Comment: The [facility]???s estimated glomerular filtration rate (eGFR) will no longer include consideration of race in its calculation. The National Kid[employer] Foundation???s eGFR Task Force developed new recommendations for the estimation of the glomerular filtration rate in the [place] They recommend immediate implementation of the new equation refit without the race variable in all laboratories because the calculation does not include race. In addition to not including race in the calculation and reporting, it included diversity in its development, and has acceptable performance characteristics and potential consequences that do not disproportionately affect any one group of individuals. Performed By: #### L [id number] ####[facility] ([facility] [place] [address] Glucose [Mass/Vol] 103 mg/dL High 70-100 [facility] Comment on above: Performed By: #### L [id number] ####[facility] ([facility])[address] [place] [address] Potassium [Moles/Vol] 3.7 mmol/L Normal 3.5-5.1 [facility] Comment on above: Performed By: #### L [id number] ####[facility] ([facility])[address] [place] [address] Protein [Mass/Vol] 7.5 g/dL Normal 6.0-8.3 [facility] Comment on above: Performed By: #### L [id number] ####[facility] ([facility])[address] [place] [address] Sodium [Moles/Vol] 136 mmol/L Normal 136-145 [facility] Comment on above: Performed By: #### L [id number] ####[facility] ([facility])[address] [place] [address] Urea nitrogen [Mass/Vol] 14 mg/dL Normal 7-25 [facility] Comment on above: Performed By: #### L [id number] ####[facility] ([facility])[address] [place] [address] UREA NITROGEN/CREATININE (MASS RATIO) IN SER/PLAS 16.3 Normal [facility] Comment on above: Performed By: #### L [id number] ####[facility] ([facility])[address] [place] [address] Follow-Upon 03-07-2024 Follow-Up [id number] Jordan Aguilar 1965 M Date Provider Department Center 03/07/2024 REGULO QUIROS [facility] RHEUM Zaida Heal Family History Problem Relation Age of Onset Hypertension Mother Hypertension Sister Family Status - Relation Status Age at Mother Sister Level of Service:20965 MD OFFICE/OUTPATIENT ESTABLISHED MOD MDM 30 MIN Reason for Visit and Comments: Follow-up [858074] - 6 m f/u Normal [facility] HEPATITIS B CORE ANTIBODY, T OTALon 03-07-2024 HEPATITIS B VIRUS CORE AB (PRESENCE) IN SER/PLAS BY IMM Non-Reactive Normal Nonreactive [facility] Comment on above: Performed By: #### L [id number] ####[facility] (BEAKER)[address] [place] [address] HEPATITIS B SURFACE ANTIGENo n 03-07-2024 HEPATITIS B VIRUS SURFACE AG PRESENCE IN SERUM Non-Reactive Normal Nonreactive [facility] Comment on above: Performed By: #### L [id number] ####[facility] (BEAKER)[address] [place] [address] Labon 03-07-2024 Lab [id number] AguilarJordan 1965 M Date Provider Department Center 03/07/20242243-[facility] MP LAB RESOURCE MP DRAW Medical Pavi Family History Problem Relation Age of Onset Hypertension Mother Hypertension Sister Family Status - Relation Status Age at Mother Sister Normal [facility] Erythrocyte distribution wid th Auto (RBC) [Ratio]on 03-04-2024 Erythrocyte distribution width (RBC) [Ratio] 13.0 % 11.0-15.0 [facility] Estimated glomerular filtrat ion rate (GFR) non- Americanon 03-04-2024 GFR/1.73 sq M.predicted among non-blacks MDRD (S/P/Bld) [Vol rate/Area] mL/min/{1.73_m2} >=60 [facility] Glucose mean value [Mass/vol ume] in Blood Estimated from glycated hemoglobinon 03-04-2024 Average glucose Estimated from glycated hemoglobin (Bld) [Mass/Vol] 117 mg/dL [facility] Hematocrit Auto (Bld) [Volum e fraction]on 03-04-2024 Hematocrit (Bld) [Volume fraction] 42.4 % 42.0-54.0 [facility] Hemoglobin [Mass/volume] in Bloodon 03-04-2024 Hemoglobin (Bld) [Mass/Vol] 14.4 g/dL 14.0-18.0 [facility] Laboratory - Chemistry and C hemistry - challengeon 03-04-2024 Calcium [Mass/Vol] 8.7 mg/dL 8.5-10.1 [facility] Chloride [Moles/Vol] 101 mmol/L 98-107 [facility] CO2 [Moles/Vol] 25.8 mmol/L 21.0-32.0 [facility] Cobalamin (Vitamin B12) [Mass/Vol] 552.0 pg/mL 193.0-986.0 [facility] Creatinine [Mass/Vol] 0.76 mg/dL 0.70-1.30 [facility] GFR/1.73 sq M.predicted MDRD (S/P/Bld) [Vol rate/Area] mL/min/{1.73_m2} >=60 [facility] Glucose [Mass/Vol] 111 mg/dL High 74-106 [facility] Potassium [Moles/Vol] 3.6 mmol/L 3.5-5.1 [facility] Sodium [Moles/Vol] 134 mmol/L Low 136-145 [facility] TSH Qn 1.055 m[IU]/L 0.358-3.740 [facility] Urea nitrogen [Mass/Vol] 9.0 mg/dL 7.0-18.0 [facility] Urea nitrogen/Creatinine [Mass ratio] 11.8 mg/mg [facility] Laboratory - Hematology and Cell countson 03-04-2024 HbA1c (Bld) [Mass fraction] 5.7 % 4.5-6.2 [facility] Comment on above: ADA RECOMMENDED LIMI T 4.0 - 6.0ADA THERAPEUTIC TARGET < 7.0ACTION SUGGESTED> 7.0 Leukocytes [#/volume] correc rohit for nucleated erythrocytes in Blood by Automated counon 03-04-2024 WBC corrected for nucl RBC Auto (Bld) [#/Vol] 8.7 10 3/uL 4.0-11.0 [facility] MCH Auto (RBC) [Entitic mass ]on 03-04-2024 MCH (RBC) [Entitic mass] 31.0 pg 25.9-34.0 [facility] MCHC Auto (RBC) [Mass/Vol]on 03-04-2024 MCHC (RBC) [Mass/Vol] 34.0 g/dL 29.9-35.2 [facility] MCV Auto (RBC) [Entitic vol] on 03-04-2024 MCV (RBC) [Entitic vol] 91.4 fL 80.0-94.0 [facility] Platelet mean volume Auto (B ld) [Entitic vol]on 03-04-2024 Platelet mean volume (Bld) [Entitic vol] 11.1 fL 9.5-13.5 [facility] Platelets Auto (Bld) [#/Vol] on 03-04-2024 Platelets (Bld) [#/Vol] 171 10 3/uL 150-450 [facility] RBC Auto (Bld) [#/Vol]on RBC (Bld) [#/Vol] 4.64 10 6/uL Low 4.70-6.10 [facility] Serum or plasma anion gap de terminationon 03-04-2024 Anion gap [Moles/Vol] 10.8 mmol/L [facility] Activated partial thrombopla stin time (aPTT) in platelet poor plasma by coagulation aon 03-03-2024 aPTT Coag (PPP) [Time] 28.6 s 22.3-36.2 [facility] Basophils Auto (Bld) [#/Vol] on 03-03-2024 Basophils (Bld) [#/Vol] 0.1 10 3/uL 0.0-0.1 [facility] Basophils/100 WBC Auto (Bld) on 03-03-2024 Basophils/100 WBC (Bld) 0.9 % 0.2-2.0 [facility] Eosinophils/100 WBC Auto (Bl d)on 03-03-2024 Eosinophils/100 WBC (Bld) 2.0 % 0.9-7.0 [facility] Erythrocyte distribution wid th Auto (RBC) [Ratio]on 03-03-2024 Erythrocyte distribution width (RBC) [Ratio] 12.7 % 11.0-15.0 [facility] Estimated glomerular filtrat ion rate (GFR) non- Americanon 03-03-2024 GFR/1.73 sq M.predicted among non-blacks MDRD (S/P/Bld) [Vol rate/Area] mL/min/{1.73_m2} >=60 [facility] Hematocrit Auto (Bld) [Volum e fraction]on 03-03-2024 Hematocrit (Bld) [Volume fraction] 43.2 % 42.0-54.0 [facility] Hemoglobin [Mass/volume] in Bloodon 03-03-2024 Hemoglobin (Bld) [Mass/Vol] 14.9 g/dL 14.0-18.0 [facility] INR in Platelet poor plasma by Coagulation assayon 03-03-2024 INR Coag (PPP) [Relative time] 1.03 {INR} [facility] Comment on above: DESIRED INR:2.0-3.0 CONDITIONS NOT LISTED BELOW2.5-3.5 FOR PROSTHETIC HEART VALVE REPLACEMENT2.5-3.5 RECURRENT THROMBOSIS Laboratory - Chemistry and C hemistry - challengeon 03-03-2024 Calcium [Mass/Vol] 9.0 mg/dL 8.5-10.1 [facility] Chloride [Moles/Vol] 99 mmol/L 98-107 [facility] CO2 [Moles/Vol] 27.5 mmol/L 21.0-32.0 [facility] Creatinine [Mass/Vol] 0.85 mg/dL 0.70-1.30 [facility] GFR/1.73 sq M.predicted MDRD (S/P/Bld) [Vol rate/Area] mL/min/{1.73_m2} >=60 [facility] Glucose [Mass/Vol] 122 mg/dL High 74-106 [facility] Potassium [Moles/Vol] 3.6 mmol/L 3.5-5.1 [facility] Sodium [Moles/Vol] 135 mmol/L Low 136-145 [facility] Urea nitrogen [Mass/Vol] 7.0 mg/dL 7.0-18.0 [facility] Urea nitrogen/Creatinine [Mass ratio] 8.2 mg/mg [facility] Laboratory - Hematology and Cell countson 03-03-2024 Immature granulocytes/100 WBC (Bld) 0.3 % 0.0-0.5 [facility] Leukocytes [#/volume] correc rohit for nucleated erythrocytes in Blood by Automated counon 03-03-2024 WBC corrected for nucl RBC Auto (Bld) [#/Vol] 9.5 10 3/uL 4.0-11.0 [facility] Lymphocytes Auto (Bld) [#/Vo l]on 03-03-2024 Lymphocytes (Bld) [#/Vol] 3.5 10 3/uL 1.2-3.8 [facility] Lymphocytes/100 WBC Auto (Bl d)on 03-03-2024 Lymphocytes/100 WBC (Bld) 37.1 % 20.5-60.0 [facility] MCH Auto (RBC) [Entitic mass ]on 03-03-2024 MCH (RBC) [Entitic mass] 31.2 pg 25.9-34.0 [facility] MCHC Auto (RBC) [Mass/Vol]on 03-03-2024 MCHC (RBC) [Mass/Vol] 34.5 g/dL 29.9-35.2 [facility] MCV Auto (RBC) [Entitic vol] on 03-03-2024 MCV (RBC) [Entitic vol] 90.6 fL 80.0-94.0 [facility] Monocytes Auto (Bld) [#/Vol] on 03-03-2024 Monocytes (Bld) [#/Vol] 0.7 10 3/uL 0.3-0.8 [facility] Monocytes/100 WBC Auto (Bld) on 03-03-2024 Monocytes/100 WBC (Bld) 7.8 % 1.7-12.0 [facility] Neutrophils Auto (Bld) [#/Vo l]on 03-03-2024 Neutrophils (Bld) [#/Vol] 4.9 10 3/uL 1.4-6.5 [facility] Neutrophils/100 WBC Auto (Bl d)on 03-03-2024 Neutrophils/100 WBC (Bld) 51.9 % 43.0-75.0 [facility] No Panel Informationon 03-03 Eosinophils # (Auto) 0.2 10 3/uL 0.0-0.7 [facility] Immature Granulocyte # (Auto) 0.03 10 3/uL 0.00-0.03 [facility] Platelet mean volume Auto (B ld) [Entitic vol]on 03-03-2024 Platelet mean volume (Bld) [Entitic vol] 10.6 fL 9.5-13.5 [facility] Platelets Auto (Bld) [#/Vol] on 03-03-2024 Platelets (Bld) [#/Vol] 184 10 3/uL 150-450 [facility] Prothrombin time (PT)on 02-04 PT Coag (PPP) [Time] 10.9 s 9.0-11.6 [facility] RBC Auto (Bld) [#/Vol]on RBC (Bld) [#/Vol] 4.77 10 6/uL 4.70-6.10 [facility] Serum or plasma anion gap de terminationon 03-03-2024 Anion gap [Moles/Vol] 12.1 mmol/L [facility] Basophils Auto (Bld) [#/Vol] on 02-01-2024 Basophils (Bld) [#/Vol] 0.1 10 3/uL 0.0-0.1 [facility] Basophils/100 WBC Auto (Bld) on 02-01-2024 Basophils/100 WBC (Bld) 1.0 % 0.2-2.0 [facility] Cholesterol in LDL Calc [Mas s/Vol]on 02-01-2024 Cholesterol in LDL [Mass/Vol] 128.4 mg/dL [facility] Comment on above: <100 mg/dl [id number] 0-129 mg/dl NEAR OR ABOVE [id number] mg/dl BORDERLINE [id number] mg/dl HIGH>190 mg/dl VERY HIGH Cholesterol in VLDL Calc [Ma ss/Vol]on 02-01-2024 Cholesterol in VLDL [Mass/Vol] 14.6 mg/dL [facility] Eosinophils/100 WBC Auto (Bl d)on 02-01-2024 Eosinophils/100 WBC (Bld) 3.6 % 0.9-7.0 [facility] Erythrocyte distribution wid th Auto (RBC) [Ratio]on 02-01-2024 Erythrocyte distribution width (RBC) [Ratio] 12.9 % 11.0-15.0 [facility] Estimated glomerular filtrat ion rate (GFR) non- Americanon 02-01-2024 GFR/1.73 sq M.predicted among non-blacks MDRD (S/P/Bld) [Vol rate/Area] mL/min/{1.73_m2} >=60 [facility] Globulin Calc (S) [Mass/Vol] on 02-01-2024 Globulin (S) [Mass/Vol] 3.7 g/dL [facility] Hematocrit Auto (Bld) [Volum e fraction]on 02-01-2024 Hematocrit (Bld) [Volume fraction] 38.8 % Low 42.0-54.0 [facility] Hemoglobin [Mass/volume] in Bloodon 02-01-2024 Hemoglobin (Bld) [Mass/Vol] 13.1 g/dL Low 14.0-18.0 [facility] Laboratory - Chemistry and C hemistry - challengeon 02-01-2024 Albumin [Mass/Vol] 3.3 g/dL Low 3.4-5.0 [facility] ALP [Catalytic activity/Vol] 105 U/L 46-116 [facility] ALT [Catalytic activity/Vol] 31 U/L 16-63 [facility] AST [Catalytic activity/Vol] 18 U/L 15-37 [facility] Bilirubin [Mass/Vol] 0.5 mg/dL 0.2-1.0 [facility] Calcium [Mass/Vol] 8.9 mg/dL 8.5-10.1 [facility] Chloride [Moles/Vol] 102 mmol/L 98-107 [facility] Cholesterol [Mass/Vol] 189 mg/dL <=200 [facility] Cholesterol in HDL [Mass/Vol] 46 mg/dL 40-60 [facility] Comment on above: > or =60 mg/dl - LOW CARDIOVASCULAR RISK<40 mg/dl - HIGH CARDIOVASCULAR RISK CO2 [Moles/Vol] 25.8 mmol/L 21.0-32.0 [facility] Creatinine [Mass/Vol] 0.81 mg/dL 0.70-1.30 [facility] GFR/1.73 sq M.predicted MDRD (S/P/Bld) [Vol rate/Area] mL/min/{1.73_m2} >=60 [facility] Glucose [Mass/Vol] 103 mg/dL 74-106 [facility] Potassium [Moles/Vol] 4.3 mmol/L 3.5-5.1 [facility] Protein [Mass/Vol] 7.0 g/dL 6.4-8.2 [facility] Sodium [Moles/Vol] 137 mmol/L 136-145 [facility] Triglyceride [Mass/Vol] 73 mg/dL <=150 [facility] Urea nitrogen [Mass/Vol] 12.0 mg/dL 7.0-18.0 [facility] Urea nitrogen/Creatinine [Mass ratio] 14.8 mg/mg [facility] Laboratory - Hematology and Cell countson 02-01-2024 Immature granulocytes/100 WBC (Bld) 0.4 % 0.0-0.5 [facility] Leukocytes [#/volume] correc rohit for nucleated erythrocytes in Blood by Automated counon 02-01-2024 WBC corrected for nucl RBC Auto (Bld) [#/Vol] 8.1 10 3/uL 4.0-11.0 [facility] Lymphocytes Auto (Bld) [#/Vo l]on 02-01-2024 Lymphocytes (Bld) [#/Vol] 2.3 10 3/uL 1.2-3.8 [facility] Lymphocytes/100 WBC Auto (Bl d)on 02-01-2024 Lymphocytes/100 WBC (Bld) 28.2 % 20.5-60.0 [facility] MCH Auto (RBC) [Entitic mass ]on 02-01-2024 MCH (RBC) [Entitic mass] 31.3 pg 25.9-34.0 [facility] MCHC Auto (RBC) [Mass/Vol]on 02-01-2024 MCHC (RBC) [Mass/Vol] 33.8 g/dL 29.9-35.2 [facility] MCV Auto (RBC) [Entitic vol] on 02-01-2024 MCV (RBC) [Entitic vol] 92.6 fL 80.0-94.0 [facility] Monocytes Auto (Bld) [#/Vol] on 02-01-2024 Monocytes (Bld) [#/Vol] 0.8 10 3/uL 0.3-0.8 [facility] Monocytes/100 WBC Auto (Bld) on 02-01-2024 Monocytes/100 WBC (Bld) 10.2 % 1.7-12.0 [facility] Neutrophils Auto (Bld) [#/Vo l]on 02-01-2024 Neutrophils (Bld) [#/Vol] 4.6 10 3/uL 1.4-6.5 [facility] Neutrophils/100 WBC Auto (Bl d)on 02-01-2024 Neutrophils/100 WBC (Bld) 56.6 % 43.0-75.0 [facility] No Panel Informationon 01-31 Eosinophils # (Auto) 0.3 10 3/uL 0.0-0.7 [facility] Immature Granulocyte # (Auto) 0.03 10 3/uL 0.00-0.03 [facility] Platelet mean volume Auto (B ld) [Entitic vol]on 02-01-2024 Platelet mean volume (Bld) [Entitic vol] 9.5 fL 9.5-13.5 [facility] Platelets Auto (Bld) [#/Vol] on 02-01-2024 Platelets (Bld) [#/Vol] 186 10 3/uL 150-450 [facility] RBC Auto (Bld) [#/Vol]on RBC (Bld) [#/Vol] 4.19 10 6/uL Low 4.70-6.10 [facility] Serum or plasma albumin/glob ulin mass ratioon 02-01-2024 Albumin/Globulin [Mass ratio] 0.9 {ratio} [facility] Serum or plasma anion gap de terminationon 02-01-2024 Anion gap [Moles/Vol] 13.5 mmol/L [facility] Serum or plasma total choles terol/high density lipoprotein (HDL) cholesterol mass amadeo 02-01-2024 Cholesterol.total/C holesterol in HDL [Mass ratio] 4.1 {ratio} [facility] Comment on above: 3.3 - 4.4 LOW RISK4. 4 - 7.1 AVERAGE RISK7.1 - 11.0 MODERATE RISK>11.0 HIGH RISK ECG 12 lead ECGon 01-22-2024 ECG 12 lead ECG [facility] [address] [place] [id number] Electrocardiograph Report Signed Patient: Jordan Aguilar MR#: [id number] : 1965 Acct:[id number] Age/Sex: 58 / M ADM Date: 01/22/24 Loc: EL Room: Type: [facility] CLI Attending Dr: Harvey Stover DO Ordering Provider: [...] previous ECGs available Confirmed by Harry Auguste ([id number]) on 01/23/2024 11:28:13 AM Referred By: CK Electronically Signed By:Harry Auguste Transcribed By: [facility] Signed By Harry Auguste MD 01/23/24 1128 Normal The Count Includes [facility] ECH echo transthoracicon ECH echo transthoracic [facility] [address] [place] [id number] Echocardiogram Signed Patient: Jordan Aguilar MR#: [id number] : 1965 Acct:[id number] Age/Sex: 58 / M ADM Date: 01/22/24 Loc: EL Room: Type: [facility] CLI Attending Dr: Harvey Stover DO Ordering Provider: Harvey Stover DO Date of Service: 01/22/24 ECH/ECH echo transthoracic: R20.8 - Other disturbances of [...] Signed By: Edelmira Plascencia MD 01/22/24 2246 Normal [facility] 36on 12-21-2023 36 PT calling for refil ls on Gabapentin and Relafen: Last visit: 09/15/23 Next visit: 03/07/24 CBC/CMP: 12/18/22 Normal [facility]illon 12-21-2023 Refill [id number] Jordan Aguilar 1965 M [facility] 12/21/2023 AMANDA GREWAL [facility] RHEUM Zaida Heal Family History Problem Relation Age of Onset Hypertension Mother Hypertension Sister Family Status - Relation Status Age at Mother Sister Normal [facility] Follow-Upon 09-15-2023 Follow-Up [id number] Jordan Aguilar 1965 M [facility] 09/15/2023 AnthonyBARBARATitaREGULO [facility] RHEUM Zaida Heal Family History Problem Relation Age of Onset Hypertension Mother Hypertension Sister Family Status - Relation Status Age at Mother Sister Level of Service:[id number] MD OFFICE/OUTPATIENT ESTABLISHED LOW MDM 20-29 MIN (GC) Reason for Visit and Comments: Follow-up [[id number]] Normal [facility] C REACTIVE PROTEINon CRP [Mass/Vol] 5.1 mg/L Normal 0.0-7.0 [facility] Comment on above: Performed By: #### 6 1405 #### [facility] [address] [place] [address], [facility] SEDIMENTATION RATEon SED RATE 5 mm/hr Normal 0-10 [facility] Comment on above: Performed By: #### 5 6506 #### [facility] [address] [place] [address], [facility] CBC W/DIFFon 03-11-2021 ABS IMM GRANS 0.0 10*3/uL Normal 0.0-0.2 The [facility] Comment on above: Performed By: #### 5 0103 #### [facility] [address] [place] [address], [facility] ABS NEUTROPHILS 4.7 10*3/uL Normal 1.6-7.6 The [facility] Comment on above: Performed By: #### 5 0103 #### [facility] [address] [facility] [place] [address], [facility] Basophils (Bld) [#/Vol] 0.1 10*3/uL Normal 0.0-0.2 [facility] Comment on above: Performed By: #### 5 0103 #### [facility] [address] [facility] [place] [address], [facility] Basophils/100 WBC (Bld) 0.8 % Normal 0.0-1.0 [facility] Comment on above: Performed By: #### 5 0103 #### [facility] [address] [place] [address], [facility] Eosinophils (Bld) [#/Vol] 0.1 10*3/uL Normal 0.0-0.5 [facility] Comment on above: Performed By: #### 5 0103 #### [facility] [address] [facility] [place] [address], [facility] Eosinophils/100 WBC (Bld) 1.4 % Normal 0.0-6.0 [facility] Comment on above: Performed By: #### 5 0103 #### [facility] [address] [place] [id number], [facility] Erythrocyte distribution width (RBC) [Ratio] 13.2 % Normal 11.5-15.0 [facility] Comment on above: Performed By: #### 5 0103 #### [facility] [address] [facility] [place] [address], [facility] Hematocrit (Bld) [Volume fraction] 42.0 % Normal 39.0-50.0 [facility] Comment on above: Performed By: #### 5 0103 #### [facility] [address] [place] [address], [facility] Hemoglobin (Bld) [Mass/Vol] 14.5 g/dL Normal 13.0-17.0 [facility] Comment on above: Performed By: #### 5 0103 #### [facility] [address] [facility] [place] [address], [facility] IMMATURE GRANS 0.4 % Normal 0.0-1.0 The [facility] Comment on above: Performed By: #### 5 0103 #### [facility] [address] [place] [address], [facility] Lymphocytes (Bld) [#/Vol] 2.8 10*3/uL Normal 1.2-4.0 [facility] Comment on above: Performed By: #### 5 0103 #### [facility] [address] [place] [address], [facility] Lymphocytes/100 WBC (Bld) 32.7 % Normal 20.0-45.0 [facility] Comment on above: Performed By: #### 5 3 #### [facility] [address] [facility] [place] [address], [facility] MCH (RBC) [Entitic mass] 31.4 pg Normal 27.0-33.0 [facility] Comment on above: Performed By: #### 5 3 #### [facility] [address] [place] [id number], [facility] MCHC (RBC) [Mass/Vol] 34.5 g/dL Normal 32.0-35.0 [facility] Comment on above: Performed By: #### 5 102 #### [facility] [address] [facility] [place] [address], [facility] MCV (RBC) [Entitic vol] 90.9 fL Normal 82.0-98.0 [facility] Comment on above: Performed By: #### 5 102 #### [facility] [address] [facility] [place] [address], [facility] Monocytes (Bld) [#/Vol] 0.8 10*3/uL Normal 0.1-1.0 [facility] Comment on above: Performed By: #### 5 102 #### [facility] [address] MONOS 8.8 % Normal 5.0-12.0 [facility] Comment on above: Performed By: #### 5 102 #### [facility] [address] Neutrophils/100 WBC (Bld) 55.9 % Normal 40.0-72.0 [facility] Comment on above: Performed By: #### 5 102 #### [facility] [address] [place] [address], [facility] Nucleated RBC/100 WBC (Bld) [Ratio] 0 % Normal 0-0 [facility] Comment on above: Performed By: #### 5 102 #### [facility] [address] [place] [address], [facility] PLAT CNT 175 10*3/uL Normal 150-400 [facility] Comment on above: Performed By: #### 5 102 #### [facility] [address] [place] [address], [facility] RBC (Bld) [#/Vol] 4.62 10*6/uL Normal 4.20-5.70 [facility] Comment on above: Performed By: #### 102 #### [facility] [address] [place] [address], [facility] WBC (Bld) [#/Vol] 8.48 10*3/uL Normal 4.00-10.60 The [facility] Comment on above: Performed By: #### 5 0103 #### [facility] [address] [facility] [place] [address], [facility] COMP METABOLIC PANELon 03-11 Albumin [Mass/Vol] 4.6 g/dL Normal 3.5-5.7 The [facility] Comment on above: Performed By: #### 0 0121 #### [facility] [address] [facility]. [address] ALKALINE PHOSPH 71 IU/L Normal 34-104 The [facility] Comment on above: Performed By: #### 0 0121 #### [facility] [address] [facility]. [address] ALT [Catalytic activity/Vol] 8 U/L Normal 7-52 [facility] Comment on above: Performed By: #### 0 0121 #### [facility] [address] [facility]. [address] AST [Catalytic activity/Vol] 14 U/L Normal 13-39 [facility] Comment on above: Performed By: #### 0 0121 #### [facility] [address] [facility] [address] Bilirubin [Mass/Vol] 0.5 mg/dL Normal 0.3-1.0 [facility] Comment on above: Performed By: #### 0 0121 #### [facility] [address] [facility] [place] [address], [facility] Calcium [Mass/Vol] 9.4 mg/dL Normal 8.6-10.3 The [facility] Comment on above: Performed By: #### 0 0121 #### [facility] [address] [place] [address], [place] Chloride [Moles/Vol] 103 mmol/L Normal 98-107 [facility] Comment on above: Performed By: #### 0 0121 #### [facility] [address] [place] [address], [place] CO2 [Moles/Vol] 28 mmol/L Normal 21-31 [facility] Comment on above: Performed By: #### 0 0121 #### [facility] [address] [place] [address], [place] Creatinine [Mass/Vol] 0.81 mg/dL Normal 0.70-1.30 [facility] Comment on above: Performed By: #### 0 0121 #### [facility] [address] [place] [address], [place] GFR/1.73 sq M.predicted among blacks MDRD (S/P/Bld) [Vol rate/Area] mL/min/{1.73_m2} Normal >60 [facility] Comment on above: Performed By: #### 0 0121 #### [facility] [address] [place] [address], [place] GFR/1.73 sq M.predicted among non-blacks MDRD (S/P/Bld) [Vol rate/Area] mL/min/{1.73_m2} Normal >60 [facility] Comment on above: Performed By: #### 0 0121 #### [facility] [address] [place] [address], [place] Glucose [Mass/Vol] 101 mg/dL High 70-100 [facility] Comment on above: Performed By: #### 0 0121 #### [facility] [address] [place] [address], [place] Potassium [Moles/Vol] 5.1 mmol/L Normal 3.5-5.1 [facility] Comment on above: Performed By: #### 0 0121 #### [facility] [address] [place] [address], [facility] Protein [Mass/Vol] 7.1 g/dL Normal 6.0-8.3 The [facility] Comment on above: Performed By: #### 0 0121 #### [facility] [address] [place] [id number], [facility] Sodium [Moles/Vol] 137 mmol/L Normal 136-145 The [facility] Comment on above: Performed By: #### 0 0121 #### [facility] [address] [place] [address], [facility] Urea nitrogen [Mass/Vol] 12 mg/dL Normal 7-25 [facility] Comment on above: Performed By: #### 0 0121 #### [facility] [address] Vital Signs Date Time Vital Sign Value Performing Clinician Facility 06-13-2024 09:49-0400 Body height 177.8 cm [facility] 06-13-2024 09:49-0400 Body mass index (BMI) [Ratio] 18.4 kg/m2 [facility] 06-13-2024 09:49-0400 Body weight 58.28 kg [facility] 06-13-2024 09:49-0400 Diastolic blood pressure 76 mm[Hg] [facility] 06-13-2024 09:49-0400 Heart rate 83 /min [facility] 06-13-2024 09:49-0400 Respiratory rate 12 /min [facility] 06-13-2024 09:49-0400 Systolic blood pressure 124 mm[Hg] [facility] 04-11-2024 08:32-0400 Body height 177.8 cm [facility] 04-11-2024 08:32-0400 Body mass index (BMI) [Ratio] 17.9 kg/m2 [facility] 04-11-2024 08:32-0400 Body weight 56.81 kg [facility] 04-11-2024 08:32-0400 Diastolic blood pressure 78 mm[Hg] [facility] 04-11-2024 08:32-0400 Heart rate 75 /min [facility] 04-11-2024 08:32-0400 Respiratory rate 12 /min [facility] 04-11-2024 08:32-0400 Systolic blood pressure 130 mm[Hg] [facility] [facility] 03-11-2024 12:05-0400 Body height 177.8 cm [facility] 03-11-2024 12:05-0400 Body mass index (BMI) [Ratio] 17.6 kg/m2 [facility] 03-11-2024 12:05-0400 Body weight 55.9 kg [facility] 03-11-2024 12:05-0400 Diastolic blood pressure 91 mm[Hg] [facility] 03-11-2024 12:05-0400 Heart rate 81 /min [facility] 03-11-2024 12:05-0400 Respiratory rate 12 /min [facility] 03-11-2024 12:05-0400 Systolic blood pressure 164 mm[Hg] [facility] 02-18-2024 11:42-0400 Body height 177.8 cm [facility] 02-18-2024 11:42-0400 Body mass index (BMI) [Ratio] 18.5 kg/m2 [facility] 02-18-2024 11:42-0400 Body weight 58.57 kg [facility] 02-18-2024 11:42-0400 Diastolic blood pressure 89 mm[Hg] [facility] 02-18-2024 11:42-0400 Heart rate 84 /min [facility] 02-18-2024 11:42-0400 Respiratory rate 16 /min [facility] 02-18-2024 11:42-0400 Systolic blood pressure 166 mm[Hg] [facility] 01-12-2024 13:29-0400 Body height 177.8 cm [facility] 01-12-2024 13:29-0400 Body mass index (BMI) [Ratio] 18.5 kg/m2 [facility] 01-12-2024 13:29-0400 Body weight 58.57 kg [facility] 01-12-2024 13:29-0400 Diastolic blood pressure 90 mm[Hg] [facility] 01-12-2024 13:29-0400 Heart rate 81 /min [facility] 01-12-2024 13:29-0400 Respiratory rate 12 /min [facility] 01-12-2024 13:29-0400 Systolic blood pressure 146 mm[Hg] [facility] 06-10-2023 08:30-0400 Body height 177.8 cm Harvey Ball Other [facility] Other 06-10-2023 08:30-0400 Body mass index (BMI) [Ratio] 18.42 kg/m2 Harvey Ball Other [facility] Other 06-10-2023 08:30-0400 Body weight 58.24 kg Harvey Ball Other [facility] Other 06-10-2023 08:30-0400 Diastolic blood pressure 75 mm[Hg] Harvey Ball Other [facility] Other 06-10-2023 08:30-0400 Respiratory rate 12 /min Harvey Ball Other [facility] Other 06-10-2023 08:30-0400 Systolic blood pressure 149 mm[Hg] Harvey Ball Other [facility] Other 12-25-2022 09:45-0400 Body height 177.8 cm Harvey Ball Other [facility] Other 12-25-2022 09:45-0400 Body mass index (BMI) [Ratio] 18.85 kg/m2 Harvey Ball Other [facility] Other 12-25-2022 09:45-0400 Body weight 59.6 kg Harvey Ball Other [facility] Other 12-25-2022 09:45-0400 Diastolic blood pressure 87 mm[Hg] Harvey Ball Other [facility] Other 12-25-2022 09:45-0400 Respiratory rate 16 /min Harvey Ball Other [facility] Other 12-25-2022 09:45-0400 Systolic blood pressure 132 mm[Hg] Harvey Ball Other [facility] Other 05-16-2022 11:20-0400 Body height 177.8 cm Lali Ramon Other [facility] Other 05-16-2022 11:20-0400 Body mass index (BMI) [Ratio] 17.22 kg/m2 Lali Ramon Other [facility] Other 05-16-2022 11:20-0400 Body temperature 98 [degF] Lali Ramon Other [facility] Other 05-16-2022 11:20-0400 Body weight 54.43 kg Lali Ramon Other [facility] Other 05-16-2022 11:20-0400 Diastolic blood pressure 93 mm[Hg] Lali Ramon Other [facility] Other 05-16-2022 11:20-0400 Respiratory rate 18 /min Lali Ramon Other [facility] Other 05-16-2022 11:20-0400 SaO2% (BldA) [Mass fraction] 100 % Lali Ramon Other [facility] Other 05-16-2022 11:20-0400 Systolic blood pressure 134 mm[Hg] Lali Ramon Other [facility] Other Encounters Encounter Date Encounter Type Care Provider Facility Start: 06-13-2024 End: 06-13-2024 ambulatory [facility] Work Phone: Start: 06-13-2024 End: 06-13-2024 Encounter for general adult medical examination without abnormal findings [facility] Start: 06-13-2024 End: 06-13-2024 Patient encounter procedure Count Includes [facility] Physician [facility] Work Phone: Start: 06-09-2024 Patient encounter status [facility] Start: 04-21-2024 End: 04-21-2024 ambulatory [facility] Start: 04-11-2024 End: 04-11-2024 ambulatory [facility] Work Phone: Start: 04-11-2024 End: 04-11-2024 Patient encounter procedure [facility] Work Phone: Start: 03-24-2024 End: 03-24-2024 ambulatory NIK LILY Not Available Start: 03-22-2024 End: 03-22-2024 ambulatory ROXANA KELBLEY Not Available Start: 03-17-2024 End: 03-17-2024 ambulatory ROXANA KELBLEY Not Available Start: 03-15-2024 End: 03-15-2024 ambulatory ROXANA KELBLEY Not Available Start: 03-11-2024 End: 03-11-2024 ambulatory [facility] Work Phone: Start: 03-11-2024 End: 03-11-2024 Patient encounter procedure Count Includes [facility] Physician [facility] Work Phone: Start: 03-10-2024 End: 03-10-2024 ambulatory GUILLAUME SWIFT Not Available Start: 03-08-2024 End: 03-08-2024 ambulatory LAKESHA BENITEZ Not Available Start: 03-07-2024 ambulatory REGULO [facility] Start: 03-07-2024 Non-patient / Non-visit Count Includes [facility] Physician [facility] Work Phone: Start: 03-07-2024 End: 03-07-2024 ambulatory REGULO [facility] Start: 03-06-2024 ambulatory HARVEY STOVER [facility] Start: 03-04-2024 Non-patient / Non-visit Count Includes [facility] Physician [facility] Work Phone: Start: 03-04-2024 End: 03-09-2024 Emergency department patient visit HARVEY STOVER [facility] Start: 03-03-2024 Non-patient / Non-visit Count Includes [facility] Physician [facility] Work Phone: Start: 02-18-2024 End: 02-18-2024 Patient encounter procedure Count Includes [facility] Physician [facility] Work Phone: Start: 02-01-2024 Non-patient / Non-visit Count Includes [facility] Physician [facility] Work Phone: Start: 01-22-2024 End: 01-22-2024 Patient encounter procedure DO Harvey Ball Work Phone: [facility] Work Phone: Start: 01-22-2024 End: 01-22-2024 ambulatory DO Harvey Ball Work Phone: [facility] Work Phone: Start: 01-22-2024 Non-patient / Non-visit Count Includes [facility] Physician [facility] Cardiology Work Phone: Start: 01-12-2024 End: 01-12-2024 ambulatory [facility] Work Phone: Start: 01-12-2024 End: 01-12-2024 Patient encounter procedure Count Includes [facility] Work Phone: Start: 12-21-2023 Non-patient / Non-visit Count Includes [facility] Work Phone: Start: 09-15-2023 End: 09-15-2023 ambulatory REGULO HENRY [facility] Start: 06-12-2023 End: 06-12-2023 ambulatory Harvey Stover Other [facility] Other Start: 06-12-2023 Telephone encounter Harvey Stoevr [facility] Start: 06-10-2023 End: 06-10-2023 ambulatory Harvey Stover Other [facility] Other Start: 06-10-2023 Encounter for genera l adult medical examination without abnormal findings Harvey Stover [facility] Start: 06-10-2023 Periodic preventive med est patient 40-64yrs Harvey Stover [facility] Start: 12-25-2022 End: 12-25-2022 ambulatory Harvey Stover Other [facility] Other Start: 12-25-2022 Office outpatient vi sit 15 minutes Harvey Stover [facility] Start: 05-16-2022 End: 05-16-2022 ambulatory Lali Ramon Other [facility] Other Start: 05-16-2022 Office outpatient ne w 20 minutes Lali Ramon [facility] Start: 07-03-2021 End: 07-03-[address] HARVEY STOVER Facility:[facility]1 Procedures Date Procedure Procedure Detail Performing Clinician Start: 09-15-2023 Follow-up visit Follow-up REGULO HENRY Plan of Treatment Date Care Activity Detail Author Start: 04-11-2024 Patient referral [facility] Work Phone: Comprehensive metabo lic 1999 panel - Serum or Plasma [facility] Comprehensive metabo lic 1999 panel - Serum or Plasma [facility] MR Cervical spine WO contrast [facility] MRA Head vessels WO contrast [facility] Patient Education Low back pain in adults [facility] Work Phone: Patient referral [facility] Work Phone: US.doppler Carotid arteries - bilateral [facility] Immunizations Immunization Date Immunization Notes Care Provider Fa cris 03-20-2010 diphtheria, tetanus toxoids and acellular pertussis vaccine, unspecified formulation Harvey Ball Other [facility] Payers Date Payer Category Payer Self-pay 2020 Unknown [id number] 1963 Unknown [id number] 2.16.84 [id number] 1963 Unknown [id number] 2.16.84 [id number] 1963 Unknown [id number] 2.16.84 [id number] 1963 Unknown [id number] 2.16.84 [id number] 1963 Unknown [id number] 2.16.84 [id number] 1963 Unknown [id number] 2.16.84 [id number] 1963 Unknown [id number] 2.16.84 [id number] 1963 Unknown [id number] 2.16.8 [id number] 1963 Unknown [id number] 2.16.8 40.1.186547.3.579.2.1286 1963 Unknown [id number] 2.16.8 [id number] 1963 Unknown [id number] 2.16.8 40.1.147158.3.579.2.1286 1963 Unknown [id number] 2.16.8 40.1.639266.3.579.2.1286 1963 Unknown [id number] 2.16.8 [id number] 1959 Unknown [id number] Unknown [id number] 2.16.8 [id number] Social History Date Type Detail Facility Sex Assigned At [facility] Other Start: 1965 Sex Assigned At Male F [facility] Clinical Notes 03-12-2018 to 03-14-2024 Note Date & Type Note Facility 03-14-2024 Note [facility] per Rheum Consult Agreement. Jennifer BarnardD Outpatient Clinical Pharmacist [facility] [phone] 03/14/24 10:21 AM [facility] 03-09-2024 Note Specialty Pharmacy N ote: Humira Supervising Physician & Clinic:?? Regulo Henry MD at [facility] Rheumatology Jordan Aguilar is a 58 y.o. year old male patient with PMH of: Ankylosing Spondylitis with Sacroilitis and Seropositive Rheumatoid Arthritis. Patient Active Problem List Diagnosis Chronic back pain Corticosteroids adverse reaction Family history of rheumatoid arthritis Idiopathic peripheral neuropathy Injury of lung Lumbar post-laminectomy syndrome Numbness of foot Polyarthropathy Rheumatoid arthritis ([facility]) Ankylosing spondylitis of multiple sites in spine ([facility]) Low back pain Neuropathy Screening-pulmonary TB Encounter for long-term (current) use of medications No Known Allergies PharmD consulted for evaluation of Humira for treatment of Ankylosing Spondylitis (Diagnosis Code: M45.0). ?? Prescribed Dosing: Humira 40mg/0.8ml Syringe Inject 40 mg subcutaneous every [address] Henry to switch to Humira 40mg/0.4ml (cf) Pen Previous medications tried: Humira (01/18/2019-09/03/2021); discontinued due to insurance change- couldn't get approved (new insurance now) Methotrexate (03/16/2018-01/18/2019); ineffective, intolerant Gabapentin (03/22/2019-current) Nabumetone (12/18/2022-03/05/2024); discontinued due to cardiac event- on Plavix now Tylenol (02/16/2018-current); PRN No pertinent drug interactions were noted. No renal or hepatic dose adjustments necessary. Vitals: Ht Readings from Last 1 Encounters: 03/07/24 1.778 m (5' 10 ) Wt Readings from Last 1 Encounters: 03/07/24 56 kg (123 lb 6.4 oz) BMI Readings from Last 1 Encounters: 03/07/24 17.71 kg/m??? BP Readings from Last 1 Encounters: 03/07/24 (!) 158/93 Pulse Readings from Last 1 Encounters: 03/07/24 80 Pertinent labs: CMP: Lab Results Component Value Date GLUCOSE 103 (H) 03/07/2024 CALCIUM 9.5 03/07/2024 NA 136 03/07/2024 K 3.7 03/07/2024 CO2 22 03/07/2024 CL 102 03/07/2024 BUN 14 03/07/2024 CREATININE 0.86 03/07/2024 EGFR 99.1 03/07/2024 LFTs: Lab Results Component Value Date ALT 14 03/07/2024 AST 16 03/07/2024 ALKPHOS 90 03/07/2024 BILITOT 0.7 03/07/2024 ALBUMIN 4.5 03/07/2024 PROT 7.5 03/07/2024 CBC: Lab Results Component Value Date WBC 9.59 03/07/2024 HGB 15.5 03/07/2024 HCT 44.2 03/07/2024 MCV 87.7 03/07/2024 PLT 190 03/07/2024 NEUTROABS 5.77 03/07/2024 LYMPHSABS 2.59 03/07/2024 TB: pending from 03/08/2024 Lab Results Component Value Date QFG NEGATIVE 01/18/2019 Viral Hepatitis: Lab Results Component Value Date HEPBSAG Nonreactive 03/07/2024 HEPBCAB Nonreactive 03/07/2024 Evaluation: Based on ankylosing spondylitis and rheumatoid arthritis diagnosis, and trial and failure of above medications, patient is an appropriate candidate for this medication.? Follow-up: Called patient to discuss Humira prescription and the Prior Authorization process- LVMTCB. I messaged Dr Henry about switching to the 40mg/0.4 ml pen vs 40mg/0.8ml syringe (awaiting response). Tb pending from 03/07/2024. Once finalized and negative, we will submit PA in CMM. Alyssa Albarran, PharmJeannette Outpatient Clinical Pharmacist [facility] [phone] 03/09/24 10:24 AM [facility] 03-09-2024 Note PA submitted in CMM- awaiting determination. Alyssa Albarran PharmD Outpatient Clinical Pharmacist [facility] [phone] 03/14/24 9:41 AM [facility] 03-09-2024 Note Pt. Received medicat ion from [email or web address] and has no further questions. Will no longer follow up. [facility] 03/22/24 11:12 AM [facility] 03-09-2024 Note PA Approved through 03/14/2025. Must be filled at [facility]. Rx sent to [facility]. Alyssa Albarran PharmD Outpatient Clinical Pharmacist [facility] [phone] 03/14/24 10:09 AM [facility] 03-09-2024 Note LVM for patient to c all back to see if he has received med from [facility]. Wesley Tomlinson , bushing press [facility] 03/17/24 4:27 PM [facility] 03-09-2024 Note Called patient and L TCB and let us know whether he was able to receive his medication from [facility]. Kalyn Reese, Business Office Representative [facility] 249:33 AM [facility] 03-07-2024 Note -------- Attestation signed by Regulo Henry MD at 03/07/2024 9:27 PM As the teaching physician, I have personally performed or re-performed the history of present illness, physical exam and medical decision making activities of the encounter and verified the medical student's documentation. I made pertinent changes as necessary to ensure accurate documentation. -------- Subjective Patient ID: Jordan Aguilar is a 58 y.o. male who presents for No chief complaint on file.. HPI Patient is here for a 6 month follow-up visit for rheumatoid arthritis and ankylosing spondylitis, accompanied by his , Kenisha. Patient was in the hospital last week for a mini-stroke, he was started on several medications, including Plavix, his Nabumetone was discontinued. He has some residual weakness in the left hand and speech difficulty but has no major deficits otherwise. Today he complains primarily of pain in the left shoulder x 1 month, neck pain ongoing for several months, radicular pain down the posterior LLE, and neuropathy in both hands and feet. His pain is constant and is generally 10/10, at best it is a 2/10. His symptoms were previously well controlled on just Nabumetone and Gabapentin until symptoms returned and worsened recently. His Humira was stopped over 6 months ago as insurance wouldn't cover the cost, however, they have started with a new insurance recently. He is visibly distressed at today's visit due to his pain. He reports a decreased appetite and activity level. He will be starting PT within the next 2 weeks. 09/15/2023 Here for follow-up with H/O seropositive RA, with [...] no chest pain and no shortness of breath. He continues to have numbness in b/l feet. Review of Systems Constitutional: Positive for activity change and appetite change (Decreased, 7lb weight loss). Musculoskeletal: Positive for arthralgias (Neck, lt shoulder, lt hip) and neck pain. Neurological: Positive for numbness (bilateral hands, bilateral feet). Constitutional: Negative for activity change, appetite change, [...] for this visit. Physical Exam Constitutional: Appearance: He is not ill-appearing. Musculoskeletal: Left shoulder: Decreased range of motion. Cervical back: Pain with movement present. Left hip: Decreased range of motion. Neurological: Mental Status: He is alert. Psychiatric: Mood and Affect: Affect is tearful. Behavior: Behavior is cooperative. Constitutional: Appearance: Normal appearance. He is normal [...] was taking methotrexate and Humira presented today. Patient was hospitalized last week for a mini-stroke, started on aspirin, Plavix, amlodipine, and Lipitor, his Nabumetone was discontinued. Patient's complaints of left shoulder, neck, and left hip pain have returned. 1. Seropositive rheumatoid and ankylosing spondylitis - Patient's Nabumetone was D/C'd due to starting on (more content not included)... [facility] 03-07-2024 Note BP 158/93 Pulse 80 No chest pain. Pt states he did take BP medication this morning. Pt states he had a mini stroke last week. [facility] 09-15-2023 Note -------- Attestation signed by Regulo [...] by Dr. Henry and Dr. Adams [facility] 06-10-2023 Evaluation note Encounter Date Diagnosis Assessment [...] due to arterial insufficiency (ICD-10 - N52.01) [facility] 03-23-2023 Evaluation note* Encounter Date Diagnosis Assessment Notes Treatment Notes Treatment Clinical Notes Dec, Mucopurulent chronic bronchitis (ICD-10 - [...] tobacco use, neurogenic from remote back condition? [facility] 08-12-2022 Evaluation note* Encounter Date Diagnosis Assessment Notes Treatment Notes Treatment Clinical Notes May, Tooth abscess (ICD-10 - K04.7) [...] Tooth abscess home care material was printed [facility] Other 06-08-2018 History general Narrative - Reported* Type Description Date Medical History rheumatoid arthritis Medical History neuropathy Right and Left foot Surgical History Lumbar Back Surgery - fusion 03/12/18 Hospitalization History see surgical history [facility] Other Evaluation noteNo InformationNort [employer] Other evaluation note* Diagnosis Onset Date Resolution Status Lumbar back pain with radicu lopathy affecting lower extremity acute Lumbar spondylosis acute Rheumatoid arthritis involvi ng both hands with positive rheumatoid factor [facility] Work Phone: Evaluation note* Diagnosis Onset Date Resolution Status Hypertension acute Lumbar spondylosis acute Nicotine dependence acute Numbness and tingling of right arm acute Numbness and tingling of right leg acute Rheumatoid arthritis involvi ng both hands with positive rheumatoid factor acute Right carotid bruit [facility] Work Phone: Evaluation note* Diagnosis Onset Date Resolution Status Hypertension acute Lumbar spondylosis acute Nicotine dependence acute Rheumatoid arthritis involvi ng both hands with positive rheumatoid factor acute Right carotid bruit acute Cervical spondylosis with radiculopathy acute Cervical spondylosis with radiculopathy acute Hemiparesis acute Hypertension acute Nicotine dependence acute Right-sided lacunar infarction acute [facility] Work Phone: Evaluation note* Diagnosis Onset Date Resolution Status Hypertension acute Lumbar spondylosis acute Nicotine dependence acute Rheumatoid arthritis involvi ng both hands with positive rheumatoid factor acute Right carotid bruit acute Cervical spondylosis with radiculopathy acute Cervical spondylosis with radiculopathy acute Hemiparesis acute Hypercholesterolemia acute Hypertension acute Nicotine dependence acute Right-sided lacunar infarction acute Cervical spondylosis with radiculopathy acute Hemiparesis acute Hypercholesterolemia acute Hypertension acute Nicotine dependence acute Right-sided lacunar infarction acute [facility] Work Phone: Evaluation note* Diagnosis Onset Date Resolution Status Cervical spondylosis with radiculopathy acute Hemiparesis acute Hypercholesterolemia acute Hypertension acute Nicotine dependence acute Right-sided lacunar infarction acute Cerebral atherosclerosis acu te Cervical spondylolysis acute Hypercholesterolemia acute Hypertension acute Lumbar spondylosis acute Nicotine dependence acute Rheumatoid arthritis involvi ng both hands with positive rheumatoid factor acute Screening PSA (prostate specific antigen) acute Wellness examination acute [facility] Work Phone: History general Narrative - Reported* Type Description Date Medical History rheumatoid arthritis Medical History neuropathy Right and Left foot [facility] Other Summary Purpose Family History Relationship Condition Age at Onset Recorded Date/T joe father Unknown Malignant neoplasm Unknown Not Specified Heart disease Unknown Unknown Relationship Condition Age at Onset Recorded Date/T joe father Unknown Malignant neoplasm Unknown mother Heart disease Unknown Unknown Advance Directives Advance Directive Response Recorded Date/ Time Advance [...] with positive rheumatoid factor Right carotid bruit Chief Complaint Amb Documentation Possible Nerve-Numb in leg/arm R20.8 R09.89 R20.0 R20.2 discuss xray results Amb Documentation hospital follow up Reason for Visit Hypertension Lumbar spondylosis Nicotine dependence Rheumatoid arthritis involving both hands with positive rheumatoid factor Right carotid bruit Cervical spondylosis with radiculopathy Cervical spondylosis with radiculopathy Hemiparesis Hypertension Nicotine dependence Right-sided lacunar infarction Chief Complaint Possible Nerve-Numb in leg/arm R20.8 R09.89 R20.0 R20.2 discuss xray results Amb Documentation hospital follow up 1 mon Reason for Visit Hypertension Lumbar spondylosis Nicotine dependence Rheumatoid arthritis involving both hands with positive rheumatoid factor Right carotid bruit Cervical spondylosis with radiculopathy Cervical spondylosis with radiculopathy Hemiparesis Hypercholesterolemia Hypertension Nicotine dependence Right-sided lacunar infarction Cervical spondylosis with radiculopathy Hemiparesis Hypercholesterolemia Hypertension Nicotine dependence Right-sided lacunar infarction Chief Complaint 1 mon Wellness Reason for Visit Cervical spondylosis with radiculopathy Hemiparesis Hypercholesterolemia Hypertension Nicotine dependence Right-sided lacunar infarction Cerebral atherosclerosis Cervical spondylolysis Hypercholesterolemia Hypertension Lumbar spondylosis Nicotine dependence Rheumatoid arthritis involving both hands with positive rheumatoid factor Screening PSA (prostate specific antigen) Wellness examination Additional Source Comments (unrecognized sect ion and content) No Status Records FoundNo Status Records FoundNo Status Records FoundNo Status Records FoundNo Status Records FoundNo Status Records Found INFORMATION SOURCE (unrecogn ized section and content) DATE CREATED AUTHOR 07/06/2021 [facility] DATE CREATED AUTHOR AUTHOR'S ORGANIZ ATION 01/12/2022 [facility] [facility] DATE CREATED AUTHOR AUTHOR'S ORGANIZ ATION 03/11/2024 [facility] DATE CREATED AUTHOR AUTHOR'S ORGANIZ ATION 03/24/2024 [facility] DATE CREATED AUTHOR AUTHOR'S ORGANIZ ATION 03/25/2024 [facility] Special[facility] EPIC DATE CREATED AUTHOR AUTHOR'S ORGANIZ ATION 04/24/2024 [facility] REASON FOR VISIT (unrecogniz ed section and content) LEFT UPPER TOOTH PAIN, POSS INFECTIONNeck PainwellnessLab Results Care Teams (unrecognized sec tion and content) Team Status: Active Member Role Status Dates Harvey Stover DO Primary Care Provider Active Team Status: Inactive Member Role Status Dates Harvey Stover DO Primary Care Provide r, Attending Provider Active Start: January 12, 2024 End: January 12, 2024 Team Status: Active Member Role Status Dates Harvey Stover , DO Primary Care Provide r, Other Provider Active Start: January 22, 2024 Edelmira Plascencia MD Attending Provider Active Sta rt: January 22, 2024 Team Status: Active Member Role Status Dates Harvey Ck , DO Primary Care Provide r, Attending Provider Active Start: February 01, 2024 Team Status: Inactive Member Role Status Dates Harvey Stover , DO Primary Care Provide r, Attending Provider Active Start: February 18, 2024 End: February 18, 2024 Team Status: Active Member Role Status Dates Harvey Stover , DO Primary Care Provider Active Start: March 03, 2024 Kelvin Plummer , DO Attending Provider Active S tart: March 03, 2024 Team Status: Active Member Role Status Dates Harvey Stover , DO Primary Care Provide r, Attending Provider Active Start: March 04, 2024 Team Status: Active Member Role Status Dates Harvey Stover , DO Primary Care Provider Active Start: March 07, 2024 DOMINIQUE Rivera Attending Provider Active St art: March 07, 2024 Team Status: Inactive Member Role Status Dates Harvey Ck , DO Primary Care Provide r, Attending Provider Active Start: March 11, 2024 End: March 11, 2024 Team Status: Inactive Member Role Status Dates Harvey Ck , DO Primary Care Provide r, Attending Provider Active Start: April 11, 2024 End: April 11, 2024 Team Status: Active Member Role Status Dates Harvey Stover , DO Primary Care Provider Active Start: December 21, 2023 DOMINIQUE Inman Attending Provider Active Start : December 21, 2023 Team Status: Inactive Member Role Status Linnette Gabriel Ck , DO Primary Care Provide r, Attending Provider Active Start: January 22, 2024 End: January 22, 2024 Team Status: Inactive Member Role Status Dates Harvey Ck , DO Primary Care Provide r, Attending Provider Active Start: June 13, 2024 End: June 13, 2024 Goals (unrecognized section and content) Goals [...] BE BASED ON THE PRIMARY CLINICAL RECORDS. [facility]. provides no warranty or guarantee of the accuracy or completeness of information in this document.
[2024-06-16 08:07] LABS: Basophils Absolute Auto 0.1 10^3/uL (0.0-0.1); Basophils Percent Auto 1.3 % (0.2-2.0); Eosinophils Absolute Auto 0.3 10^3/uL (0.0-0.7); Eosinophils Percent Auto 4.2 % (0.9-7.0); Hematocrit 38.3 % (42.0-54.0); Hemoglobin 13.2 g/dL (14.0-18.0); Immature Granulocytes Abs Auto 0.01 10^3/uL (0.00-0.03); Immature Granulocytes Pct Auto 0.1 % (0.0-0.5); Lymphocytes Absolute Auto 2.5 10^3/uL (1.2-3.8); Lymphocytes Percent Auto 31.7 % (20.5-60.0); Mean Corpuscular HGB Conc 34.5 g/dL (29.9-35.2); Mean Corpuscular Volume 92.7 fL (80.0-94.0); Mean Platelet Volume 10.3 fL (9.5-13.5); Monocytes Absolute Auto 0.7 10^3/uL (0.3-0.8); Monocytes Percent Auto 9.3 % (1.7-12.0); Neutrophils Absolute Auto 4.2 10^3/uL (1.4-6.5); Neutrophils Percent Auto 53.4 % (43.0-75.0); Platelet Count 179 10^3/uL (150-450); Red Blood Count 4.13 10^6/uL (4.70-6.10); Red Cell Distribution Width 12.6 % (11.0-15.0); White Blood Count 7.9 10^3/uL (4.0-11.0)
[2024-06-16 08:28] LABS: Alanine Aminotransferase 27 U/L (16-63); Albumin Globulin Ratio 1.3; Albumin Level 3.7 g/dL (3.4-5.0); Alkaline Phosphatase 106 U/L (46-116); Anion Gap 10.9; Aspartate Amino Transferase 14 U/L (15-37); BUN Creatinine Ratio 13.3; Bilirubin Total 0.4 mg/dL (0.2-1.0); Carbon Dioxide 29.3 mmol/L (21.0-32.0); Chloride 103 mmol/L (98-107); Chol HDL Ratio 2.1; Cholesterol 101 mg/dL (<=200); Estimated GFR (African America >60 (>=60); Estimated GFR (Non-African Ame >60 (>=60); Globulin 2.9 g/dL; Glucose 107 mg/dL (74-106); HDL Cholesterol 47 mg/dL (40-60); Potassium 4.2 mmol/L (3.5-5.1); Sodium 139 mmol/L (136-145); Total Protein 6.6 g/dL (6.4-8.2); Triglycerides 60 mg/dL (<=150)
[2024-06-16 09:11] LABS: Prostate Specific Antigen Scrn 0.97 ng/mL (<=4.00)
== END 2024-06-16 07:34 | disposition home or self-care (01) ==
LOC: LAB 07:35
PROVIDERS: PCP Internal Medicine; Visit Provider Internal Medicine
DX: Z00.00 Encounter for general adult medical examination without abnormal findings (principal); I10 Essential (primary) hypertension; I67.2 Cerebral atherosclerosis; E78.00 Pure hypercholesterolemia, unspecified; Z12.5 Encounter for screening for malignant neoplasm of prostate
CPT/HCPCS: 36415; 80053; 80061; 85025; G0103

== ENCOUNTER 2025-05-12 14:46 | Outpatient (OUT) | payer BC, MEDICARE, SELFPAY ==
--- OUTSIDE RECORDS SUMMARY | 2025-05-12 14:52 | XMS_ITS | Encounter Summary ---
Author Organization [employer] [facility] Address [id number] [address] [place] [address] Care Team Providers Care Case Preparer And Liner Name Role Phone Harvey Stover DO Primary Care Provider [phone] Reason for Referral * Diagnostic Imaging (Routine) - Closed Specialty Diagnoses / Procedures Referred By Contac t Referred To Contact Radiology Diagnoses Pain Procedures CT brain without contrast [facility] [address] [place] [phone] Phone: tel: fax: Referral ID Status Reason Start Date Expiration Date Visits Re quested Visits Authorized [id number] Closed 03/06/2024 03/06/2025 1 1 * Diagnostic Imaging (Routine) - Closed Specialty Diagnoses / Procedures Referred By Contac t Referred To Contact Radiology Diagnoses Pain Procedures CT angiogram carotid [facility] [address] [place] [phone] Phone: tel: fax: Referral ID Status Reason Start Date Expiration Date Visits Re quested Visits Authorized [id number] Closed 03/06/2024 03/06/2025 1 1 * Diagnostic Imaging (Routine) - Closed Specialty Diagnoses / Procedures Referred By Contac t Referred To Contact Radiology Diagnoses Pain Procedures CT angiogram head [facility] [address] [place] [phone] Phone: tel: fax: Referral ID Status Reason Start Date Expiration Date Visits Re quested Visits Authorized [id number] Closed 03/06/2024 03/06/2025 1 1 * Diagnostic Imaging (Routine) - Closed Specialty Diagnoses / Procedures Referred By Contac t Referred To Contact Radiology Diagnoses Pain Procedures MR brain without contrast [facility] [address] [place] [phone] Phone: tel: fax: Referral ID Status Reason Start Date Expiration Date Visits Re quested Visits Authorized [id number] Closed 03/06/2024 03/06/2025 1 1 Encounter Details Date Type Department Care Team (Late st Contact Info) Description 03/06/2024 Orders Only [facility] [address] [place] [phone] Transcribe, Orders Support User Pain (Primary Dx) Social History Tobacco Use Types Packs/Day Years Used Date Smoking Tobacco: Never Assessed PHQ-2 Answer Date Recorded Total Score 0 01/08/2023 Childcare Answer Date Recorded Childcare Unknown 03/16/2019 Employment Answer Date Recorded Employment Unknown 03/16/2019 Purpose - Life Answer Date Recorded Purpose and direction in life Unknown Sex and Gender Information Value Date Recorded Sex Assigned at Not on file Legal Sex Male 11:44 AM EDT Gender Identity Not on file Sexual Orientation Not on file documented as of this encounter Plan of Treatment Not on file documented as of this encounter Results * MR brain without contrast (03/04/2024 11:10 AM EDT) us Scanning Provider External IMG MRI ORDERABLES Fi nal Result * CT angiogram carotid (03/03/2024 10:15 PM EDT) us Scanning Provider External IMG CT ORDERABLES Fin al Result * CT angiogram head (03/03/2024 10:10 PM EDT) us Scanning Provider External IMG CT ORDERABLES Fin al Result * CT brain without contrast (03/03/2024 9:15 PM EDT) us Scanning Provider External IMG CT ORDERABLES Fin al Result documented in this encounter Visit Diagnoses Diagnosis Pain- Primary Generalized pain documented in this encounter Additional Health Concerns Assessment Noted Time PHQ-9 Depression Total Score: 0 01/09/20 23 8:33 AM EDT documented as of this encounter Care Teams Case Preparer And Liner Relationship Specialty Start Date End Date Harvey Stover DO [address] [place] [address] PCP - General Internal Medicine 01/08/23 documented as of this encounter
--- OUTSIDE RECORDS SUMMARY | 2025-05-12 14:52 | XMS_ITS | Clinical Summary ---
Author Organization [facility] Address [address] [place] [address] Care Team Providers Care Agricultural Service Technician Name Role Phone Unavailable Primary Care Provider Unavailabl e Social History Tobacco Use Types Packs/Day Years Used Date Smoking Tobacco: Never Assessed Sex and Gender Information Value Date Recorded Sex Assigned at Not on file Legal Sex Male 7:07 PM EDT Gender Identity Not on file Sexual Orientation Not on file Plan of Treatment Not on [place] [address] [facility]
--- OUTSIDE RECORDS SUMMARY | 2025-05-12 14:52 | XMS_ITS | Clinical Summary ---
Author Organization [facility] Address [id number] [address] [place] [address] Care Team Providers Care Behavioral Health Specialist Name Role Phone Harvey Stover DO Primary Care Provider [phone] Allergies No known active allergies Medications gabapentin (NEURONTIN) 300 mg capsule Take 1 capsule (300 mg total) by mouth 3 (three) times a day. Use 1 cap at night and 1 cap at late afternoon for 1 week then 1 cap 3 times daily 3 Active amLODIPine (NORVASC) 5 mg tablet Daily 4 Active HUMIRA,CF, PEN 40 mg/0.4 mL pen injector kit Inject 40 mg under the skin every 14 (fourteen) days. 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 Never True 04/21/2024 Within the past 12 months th e food we bought just didn't last and we didn't have money to get more. Never True 04/21/2024 Purpose - Life Answer Date Recorded Purpose and direction in life Unknown Sex and Gender Information Value Date Recorded Sex Assigned at Not on file Legal Sex Male 11:44 AM EDT Gender Identity Not on file Sexual Orientation Not on file Last Filed Vital Signs Vital Sign Reading Time Taken Comments Blood Pressure 130/72 04/21/2024 9:58 AM EDT Pulse 76 04/21/2024 9:58 AM EDT Temperature - - Respiratory Rate - - Oxygen Saturation - - Inhaled Oxygen Concentration - - Weight 58.1 kg (128 lb) 04/21/2024 9:58 AM EDT Height - - Body Mass Index - - Plan of Treatment Health Maintenance Due Date Last Done Comments Tobacco Screening 1975 Adult BMI Screening 1981 Zoster (Shingles) Vaccine (1 of 2) 2013 DTaP,Tdap and Td Vaccines (2 - Tdap) 03/20/202003/05 Depression Screening 01/09/2024 01/08/2023 Influenza Vaccine 06/05/2025 Medical Devices Not on file Insurance [employer] Care Teams Behavioral Health Specialist Relationship Specialty Start Date End Date Harvey Stover DO [address] [place] [address] PCP - General Internal Medicine 01/08/23
--- OUTSIDE RECORDS SUMMARY | 2025-05-12 14:52 | XMS_ITS | Encounter Summary ---
Author Organization [facility] Address [id number] [address] [place] [address] Care Team Providers Care Spinner Concrete Pipe Name Role Phone Harvey Stover DO Primary Care Provider [phone] Encounter Details Date Type Department Care Team (Late st Contact Info) Description 03/07/2024 Orders Only [facility] [address] [place] [phone] Ref Prov, [place] [address] Social History Tobacco Use Types Packs/Day Years [...] on file documented as of this encounter Procedures Procedure Name Priority Date/Time Associated Diagnosis Comments CT CTA HEAD Routine 03/04/2024 10:[address] CTA CAROTID Routine 03/04/2024 10:13 AM EDT documented in this encounter Results * CT angiogram carotid (03/04/2024 10:13 AM EDT) Anatomical Region Laterality Modality Neuro, Neck, Vascular, Neuro [place] N/A Computed Tomography us Not In System Ref Prov IMG CT ORDERABLES Final R esult * CT angiogram head (03/04/2024 10:13 AM EDT) Anatomical Region Laterality Modality Head, Neuro, Vascular, Head and Neck, Neuro [place] ra N/A Computed Tomography us Not In System Ref Prov IMG CT ORDERABLES Final R esult documented in this encounter Visit Diagnoses Not on filedocumented in this encounter Additional Health Concerns Assessment Noted Time PHQ-9 Depression Total Score: 0 01/09/20 23 8:33 AM EDT documented as of this encounter Care Teams Spinner Concrete Pipe Relationship Specialty Start Date End Date Harvey Stover DO [address] [place] [address] PCP - General Internal Medicine 01/08/23 documented as of this encounter
--- OUTSIDE RECORDS SUMMARY | 2025-05-12 14:52 | XMS_ITS | Clinical Summary ---
Author Organization [facility] Address [address] [place] [address] Care Team Providers Care Coal Trammer Name Role Phone Harvey Stover DO Primary Care Provider [phone] Allergies No known active allergies Medications sildenafil (Viagra) 100 mg tablet TAKE 1/2 (ONE-HALF) TO 1 (ONE) TABLET BY MOUTH DAILY NEEDED MUST LAST 30 DAYS 02/11/2023 Active gabapentin (Neurontin) 300 mg capsuleIndicatio ns:Neuropapillit is Take one cap PO three times a day 90 capsule 6 12/21/2023 Active nabumetone (Relafen) 750 mg tabletIndication s:Hip pain, chronic, right Take one tab PO twice daily 60 tablet 11 12/21/2023 Active amLODIPine (Norvasc) 5 mg tablet Take 5 mg by mouth in the morning. 03/05/2024 Active aspirin 81 mg chewable tablet Chew 81 mg in the morning. 03/05/2024 Active atorvastatin (Lipitor) 40 mg tablet Take 40 mg by mouth in the morning. 03/05/2024 Active clopidogrel (Plavix) 75 mg tablet Take 75 mg by mouth in the morning. 03/05/2024 Active adalimumab (Humira,CF, Pen) 40 mg/0.4 mL pen injector kit pen-injectorIndi cations:Ankylosi ng spondylitis of multiple sites in spine (CMS/HCC) Inject 1 Pen (40 mg) under the skin every 14 (fourteen) days. 2 each 11 03/14/2024 Active losartan (Cozaar) 25 mg tablet Take 25 mg by mouth in the morning. 06/11/2024 Active Active Problems Problem Noted Date Diagnosed Date Rheumatoid arthritis with rheumatoid factor, uns pecified 09/07/2024 Cerebral atherosclerosis 09/06/2024 Cervical spondylolysis 09/06/2024 Dysesthesia of face 09/06/2024 Hemiparesis 09/06/2024 Hypercholesterolemia 09/06/2024 Nicotine dependence 09/06/2024 Rheumatoid arthritis involvi ng both hands with positive rheumatoid factor 09/06/2024 Right carotid bruit 09/06/2024 Screening PSA (prostate specific antigen) 2023 Hypertension 04/21/2024 Right-sided lacunar infarction 04/21/2024 Sequelae, post-stroke 04/21/2024 Low back pain 03/07/2024 Neuropathy 03/07/2024 Screening-pulmonary TB 03/07/2024 Encounter for long-term (current) use of medicat ions 03/07/2024 Rheumatoid arthritis 09/15/2023 Ankylosing spondylitis of multiple sites in spin e 09/15/2023 Corticosteroids adverse reaction 03/09/2018 Family history of rheumatoid arthritis 8 Idiopathic peripheral neuropathy 03/09/2018 Polyarthropathy 03/09/2018 Chronic back pain 07/01/2016 Injury of lung 07/01/2016 Lumbar post-laminectomy syndrome 07/01/2016 Numbness of foot 07/01/2016 Encounters Date Type Department Care Team Description 03/07/2025 10:00 AM EDT Follow-Up [facility] Rheumatology [address] [place] [address] Taylor Henry MD Ankylosing spondylitis of multiple sites in spine (CMS/[facility]) (Primary Dx); Rheumatoid arthritis with rheumatoid factor, unspecified (CMS/HCC); Low back pain, unspecified back pain laterality, unspecified chronicity, unspecified whether sciatica present from Last 3 Months Immunizations Immunization Administration Dates Next Due DTaP, Unspecified 03/20/2010 Family History Medical History Relation Name Comments Hypertension Mother Hypertension Sister Relation Name Status Comments Mother Sister Social History Tobacco Use Types Packs/Day Years Used Date Smoking Tobacco: Former Cigarettes Smokeless Tobacco: Never Tobacco Cessation:Counseling Given: Not Answered Alcohol Use Standard Drinks/Week Comments Never 0 (1 standard drink = 0.6 oz pur e alcohol) Humiliation, Afraid, Rape, and Kick questionnair e Answer Date Recorded Within the last year, have y ou been afraid of your partner or ex-partner? No 07/25/2024 Within the last year, have y ou been humiliated or emotionally abused in other ways by your partner or ex-partner? No Within the last year, have y ou been kicked, hit, slapped, or otherwise physically hurt by your partner or ex-partner? No 07/25/2024 Within the last year, have y ou been raped or forced to have any kind of sexual activity by your partner or ex-partner? No 07/25/2024 PHQ-2 Answer Date Recorded Patient Health Questionnaire-2 Score 0 03/07/2025 Sex and Gender Information Value Date Recorded Sex Assigned at Not on file Legal Sex Male 11:48 PM EDT Gender Identity Not on file Sexual Orientation Not on file Last Filed Vital Signs Vital Sign Reading Time Taken Comments Blood Pressure 123/75 03/07/2025 10:02 AM EDT Pulse 80 03/07/2025 10:02 AM EDT Temperature 36.8 C (98.3 F) 08/03/2024 1:59 PM EDT Respiratory Rate - - Oxygen Saturation 98% 03/07/2025 10:02 AM EDT Inhaled Oxygen Concentration - - Weight 61.2 kg (135 lb) 03/07/2025 10:02 AM EDT Height 177.8 cm (5' 10 ) 03/07/2025 10:02 AM EDT Body Mass Index 19.37 03/07/2025 10:02 AM EDT Plan of Treatment Upcoming Encounters Date Type Department Care Team (Late st Contact Info) Description 09/05/2025 10:00 AM EST Follow-Up [facility] Rheumatology [address] [place] [address] Taylor Henry MD [address] [facility] [place] [address] Health Maintenance Due Date Last Done Comments CT Colonography 1963 Colonoscopy 1963 FOBT 1965 Sigmoidoscopy 1963 Adult Tetanus 1985 Zoster Vaccines (1 of 2) 2013 COVID-19 Vaccine (1 - 2023-2 5 season) 2024 FIT 06/23/2024 06/23/2023 Influenza Vaccine (#1) 2025 Depression Screening 03/07/2026 03/07/2025 Colorectal Cancer Screening 06/23/2026 FIT-DNA 06/23/2026 06/23/2023 HIB Vaccines Aged Out No longer eligi ble based on patient's age to complete this topic HPV Vaccines Aged Out No longer eligi ble based on patient's age to complete this topic IPV Vaccines Aged Out No longer eligi ble based on patient's age to complete this topic Meningococcal B Vaccine Aged Out No l onger eligible based on patient's age to complete this topic Meningococcal Vaccine Aged Out No carl radha eligible based on patient's age to complete this topic Pneumococcal Vaccine: Pediat rics (0 to 5 Years) and At-Risk Patients (6 to 64 Years) Aged Out No longer eligi ble based on patient's age to complete this topic Rotavirus Vaccines Aged Out No longer eligible based on patient's age to complete this topic Goals Goal Patient Goal Type Associated Problems Recent Progress Patient-Stated? Author Blood Pressure < 140/90 Blood Pressure 123/75( 025 10:02 AM EDT) Taylor Foster MD Insurance [facility] Care Teams Coal Trammer Relationship Specialty Start Date End Date Harvey Stover DO [address] [facility] [place] [address] PCP - General 09/14/23
[2025-05-12 15:42] LABS: Calcium 9.2 mg/dL (8.5-10.1); Magnesium 2.0 mg/dL (1.8-2.4); Potassium 3.7 mmol/L (3.5-5.1); Thyroid Stimulating Hormone 0.566 uIU/mL (0.358-3.740)
== END 2025-05-12 14:47 | disposition home or self-care (01) ==
PROVIDERS: PCP Internal Medicine; Visit Provider Internal Medicine
DX: R25.2 Cramp and spasm (principal)
CPT/HCPCS: 36415; 82310; 83735; 84132; 84443

== ENCOUNTER 2025-06-22 07:41 | Outpatient (OUT) | payer MEDICARE, SELFPAY ==
--- OUTSIDE RECORDS SUMMARY | 2025-06-22 07:46 | XMS_ITS | Encounter Summary ---
Author Organization [facility] Address [id number] [address] [place] [address] Care Team Providers Care Automotive Refinisher Name Role Phone Harvey Stover DO Primary Care Provider [phone] Reason for Visit * Reason Onset Date Comments new patient referral 01/07/2023 Encounter Details Date Type Department Care Team (Late st Contact Info) Description 01/07/2023 Telephone [facility] Neurology [address] [place] [id number] Negra Moore new patient referral Social History Tobacco Use Types Packs/Day Years [...] on file Sexual Orientation Not on file COVID-19 Exposure Response Date Recorded In the last month, have you been in contact with someone who was confirmed or suspected to have Coronavirus / COVID-19? No / Unsure 01/08/2023 8:16 AM EDT documented as of this encounter Miscellaneous Notes * Telephone Encounter - Negra Moore - 01/07/2023 1:22 PM EDT First Attempt Made from [employer]- Left Voicemail New patient referral received. Dx:NEUROPATHY Referred by:Taylor Henry MD Referred to: Providers patient can see in clinic: Please contact patient to schedule from referral, Thanks! PLEASE REVIEW PLAN OVER THE PHONE AND ADVISE PATIENT TO BRING UPDATED INSURANCE INFORMATION TO THEIR NEW PATIENT APPOINTMENT * Telephone Encounter - Tommy Yepez - 01/07/2023 1:22 PM EDT Scheduled 01/08/23 w/ David. Patient to arrive 1/2hr early to register and complete paperwork Verified ins documented in this encounter Plan of Treatment Not on file documented as of this encounter Visit Diagnoses Not on filedocumented in this encounter Care Teams Automotive Refinisher Relationship Specialty Start Date End Date Harvey Stover DO [address] [place] [address] PCP - General Internal Medicine 01/08/23 documented as of this encounter
--- OUTSIDE RECORDS SUMMARY | 2025-06-22 07:46 | XMS_ITS | Encounter Summary ---
Author Organization [facility] [employer] [facility] Address [id number] [address] [place] [address] Care Team Providers Care Cargo Agent Name Role Phone Harvey Stover DO Primary Care Provider [phone] Encounter Details Date Type Department Care Team (Late st Contact Info) Description 03/07/2024 Orders Only [facility] [address] [place] [phone] Ref Prov, [place] [address] Social History Tobacco Use Types Packs/Day Years [...] Head, Neuro, Vascular, Head and Neck, Neuro [place] ra N/A Computed Tomography us Not In System Ref Prov IMG CT ORDERABLES Final R esult documented in this encounter Visit Diagnoses Not on filedocumented in this encounter Additional Health Concerns Assessment Noted Time PHQ-9 Depression Total Score: 0 01/09/20 23 8:33 AM EDT documented as of this encounter Care Teams Cargo Agent Relationship Specialty Start Date End Date Harvey Stover DO [address] [place] [address] PCP - General Internal Medicine 01/08/23 documented as of this encounter
--- OUTSIDE RECORDS SUMMARY | 2025-06-22 07:46 | XMS_ITS | Clinical Summary ---
Author Organization [facility] Address [address] [place] [address] Care Team Providers Care Senior Computer Specialist Name Role Phone Unavailable Primary Care Provider Unavailabl e Social History Tobacco Use Types Packs/Day Years Used Date Smoking Tobacco: Never Assessed Sex and Gender Information Value Date Recorded Sex Assigned at Not on file Legal Sex Male 7:07 PM EDT Gender Identity Not on file Sexual Orientation Not on file Plan of Treatment [place] [address] [facility]
--- OUTSIDE RECORDS SUMMARY | 2025-06-22 07:46 | XMS_ITS | Encounter Summary ---
Author Organization [facility] Address [id number] [address] [place] [address] Care Team Providers Care Devops Developer Name Role Phone Harvey Stover DO Primary Care Provider [phone] Reason for Referral * Diagnostic Imaging (Routine) - Closed Specialty Diagnoses / Procedures Referred By Contac t Referred To Contact Radiology Diagnoses Pain Procedures CT brain without contrast [facility] [address] [place] [phone] Phone: tel: fax: Referral ID Status Reason Start Date Expiration Date Visits Re quested Visits Authorized [id number] Closed 03/06/2024 03/06/2025 1 1 * Diagnostic Imaging (Routine) - Closed Specialty Diagnoses / Procedures Referred By Contac t Referred To Contact Radiology Diagnoses Pain Procedures CT angiogram carotid [facility] [address] [place] [phone] Phone: tel: fax: Referral ID Status Reason Start Date Expiration Date Visits Re quested Visits Authorized [id number] Closed 03/06/2024 03/06/2025 1 1 * Diagnostic Imaging (Routine) - Closed Specialty Diagnoses / Procedures Referred By Contac t Referred To Contact Radiology Diagnoses Pain Procedures CT angiogram head [facility] [address] [place] [phone] Phone: tel: fax: Referral ID Status Reason Start Date Expiration Date Visits Re quested Visits Authorized [id number] Closed 03/06/2024 03/06/2025 1 1 * Diagnostic Imaging (Routine) - Closed Specialty Diagnoses / Procedures Referred By Contac t Referred To Contact Radiology Diagnoses Pain Procedures MR brain without contrast [facility] [address] [place] [phone] Phone: tel: fax: Referral ID Status Reason Start Date Expiration Date Visits Re quested Visits Authorized [id number] Closed 03/06/2024 03/06/2025 1 1 Encounter Details Date Type Department Care Team (Late st Contact Info) Description 03/06/2024 Orders Only [facility] [address] [place] [phone] Transcribe, Orders Support User Pain (Primary [...] documented as of this encounter Care Teams Devops Developer Relationship Specialty Start Date End Date Harvey Stover DO [address] [place] [address] PCP - General Internal Medicine 01/08/23 documented as of this encounter
--- OUTSIDE RECORDS SUMMARY | 2025-06-22 07:46 | XMS_ITS | Clinical Summary ---
Author Organization [facility] Address [id number] [address] [place] [address] Care Team Providers Care Partition Assembly Machine Operator Name Role Phone Harvey Stover DO Primary Care Provider [phone] Allergies No known active allergies Medications gabapentin [...] Not on file Insurance ANTH Care Teams Partition Assembly Machine Operator Relationship Specialty Start Date End Date Harvey Stover DO [address] [place] [address] PCP - General Internal Medicine 01/08/23
--- OUTSIDE RECORDS SUMMARY | 2025-06-22 07:46 | XMS_ITS | Clinical Summary ---
Author Organization [facility] Address [address] [place] [address] Care Team Providers Care Print Finisher Name Role Phone Harvey Stover DO Primary Care Provider [phone] Allergies No known active allergies Medications sildenafil [...] post-laminectomy syndrome 07/01/2016 Numbness of foot 07/01/2016 Immunizations Immunization Administration Dates Next Due DTaP, [...] Info) Description 09/05/2025 10:00 AM EST Follow-Up [facility] [address] [place] [address] Taylor Henry MD [address] [place] [address] Health Maintenance Due Date Last Done Comments CT Colonography 1963 Colonoscopy 1963 FOBT 1965 Sigmoidoscopy 1963 Adult Tetanus 1985 Zoster Vaccines (1 of 2) 2013 FIT 06/23/2024 06/23/2023 COVID-19 Vaccine ( - 2023-2 5 season) 2025 Influenza Vaccine (#1) 2025 Depression Screening 03/07/2026 [...] 10:02 AM EDT) Taylor Foster MD Insurance [facility] Member Subscriber Plan / Payer (Ef fective 2023-Present) Name:Jordan Aguilar Relation to Subscriber:Spouse Name:KENISHA AGUILAR Date of :1965 (Home) Address: [address] [place] [phone] Payer ID:[id number] (NAIC) Type:Not on file Address: [facility] [id number] [place] [id number] Care Teams Print Finisher Relationship Specialty Start Date End Date Harvey Stover DO [address] [facility] [place] [id number] PCP - General 09/14/23
--- OUTSIDE RECORDS SUMMARY | 2025-06-22 07:50 | XMS_ITS | CCD ---
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 M.predicted MDRD (S/P/Bld) [Vol rate/Area] mL/min/{1.73_m2} >=60 [facility] Glucose [Mass/Vol] 122 mg/dL High 74-106 [facility] Potassium [Moles/Vol] 3.6 mmol/L 3.5-5.1 [facility] Sodium [Moles/Vol] 135 mmol/L Low 136-145 [facility] Urea nitrogen [Mass/Vol] 7.0 mg/dL 7.0-18.0 [facility] Urea nitrogen/Creatinine [Mass ratio] 8.2 mg/mg [facility] Laboratory - Hematology and Cell countson 03-03-2024 Immature granulocytes/100 WBC (Bld) 0.3 % 0.0-0.5 [facility] Leukocytes [#/volume] correc rohit for nucleated erythrocytes in Blood by Automated counon 03-03-2024 WBC corrected for nucl RBC Auto (Bld) [#/Vol] 9.5 10 3/uL 4.0-11.0 [facility] Lymphocytes Auto (Bld) [#/Vo l]on 03-03-2024 Lymphocytes (Bld) [#/Vol] 3.5 10 3/uL 1.2-3.8 [facility] Lymphocytes/100 WBC Auto (Bl d)on 03-03-2024 Lymphocytes/100 WBC (Bld) 37.1 % 20.5-60.0 [facility] MCH Auto (RBC) [Entitic mass ]on 03-03-2024 MCH (RBC) [Entitic mass] 31.2 pg 25.9-34.0 [facility] MCHC Auto (RBC) [Mass/Vol]on 03-03-2024 MCHC (RBC) [Mass/Vol] 34.5 g/dL 29.9-35.2 [facility] MCV Auto (RBC) [Entitic vol] on 03-03-2024 MCV (RBC) [Entitic vol] 90.6 fL 80.0-94.0 [facility] Monocytes Auto (Bld) [#/Vol] on 03-03-2024 Monocytes (Bld) [#/Vol] 0.7 10 3/uL 0.3-0.8 [facility] Monocytes/100 WBC Auto (Bld) on 03-03-2024 Monocytes/100 WBC (Bld) 7.8 % 1.7-12.0 [facility] Neutrophils Auto (Bld) [#/Vo l]on 03-03-2024 Neutrophils (Bld) [#/Vol] 4.9 10 3/uL 1.4-6.5 [facility] Neutrophils/100 WBC Auto (Bl d)on 03-03-2024 Neutrophils/100 WBC (Bld) 51.9 % 43.0-75.0 [facility] No Panel Informationon 03-03 Eosinophils # (Auto) 0.2 10 3/uL 0.0-0.7 [facility] Immature Granulocyte # (Auto) 0.03 10 3/uL 0.00-0.03 [facility] Platelet mean volume Auto (B ld) [Entitic vol]on 03-03-2024 Platelet mean volume (Bld) [Entitic vol] 10.6 fL 9.5-13.5 [facility] Platelets Auto (Bld) [#/Vol] on 03-03-2024 Platelets (Bld) [#/Vol] 184 10 3/uL 150-450 [facility] Prothrombin time (PT)on 02-04 PT Coag (PPP) [Time] 10.9 s 9.0-11.6 [facility] RBC Auto (Bld) [#/Vol]on RBC (Bld) [#/Vol] 4.77 10 6/uL 4.70-6.[address] [facility] Serum or plasma anion gap de terminationon 03-03-2024 Anion gap [Moles/Vol] 12.1 [facility] Basophils Auto (Bld) [#/Vol] on 02-01-2024 Basophils (Bld) [#/Vol] 0.1 10 3/uL 0.0-0.1 [facility] Basophils/100 WBC Auto (Bld) on 02-01-2024 Basophils/100 WBC (Bld) 1.0 % 0.2-2.0 [facility] Cholesterol in LDL Calc [Mas s/Vol]on 02-01-2024 Cholesterol in LDL [Mass/Vol] 128.4 mg/dL [facility] Comment on above: <100 mg/dl [id number] 0-129 mg/dl NEAR OR ABOVE [id number] mg/dl BORDERLINE [id number] mg/dl HIGH>190 mg/dl VERY HIGH Cholesterol in VLDL Calc [Ma ss/Vol]on 02-01-2024 Cholesterol in VLDL [Mass/Vol] 14.6 mg/dL [facility] Eosinophils/100 WBC Auto (Bl d)on 02-01-2024 Eosinophils/100 WBC (Bld) 3.6 % 0.9-7.0 [facility] Erythrocyte distribution wid th Auto (RBC) [Ratio]on 02-01-2024 Erythrocyte distribution width (RBC) [Ratio] 12.9 % 11.0-15.0 [facility] Estimated glomerular filtrat ion rate (GFR) non- Americanon 02-01-2024 GFR/1.73 sq M.predicted among non-blacks MDRD (S/P/Bld) [Vol rate/Area] mL/min/{1.73_m2} >=60 [facility] Globulin Calc (S) [Mass/Vol] on 02-01-2024 Globulin (S) [Mass/Vol] 3.7 g/dL [facility] Hematocrit Auto (Bld) [Volum e fraction]on 02-01-2024 Hematocrit (Bld) [Volume fraction] 38.8 % Low 42.0-54.0 [facility] Hemoglobin [Mass/volume] in Bloodon 02-01-2024 Hemoglobin (Bld) [Mass/Vol] 13.1 g/dL Low 14.0-18.0 [facility] Laboratory - Chemistry and C hemistry - challengeon 02-01-2024 Albumin [Mass/Vol] 3.3 g/dL Low 3.4-5.0 [facility] ALP [Catalytic activity/Vol] 105 U/L 46-116 [facility] ALT [Catalytic activity/Vol] 31 U/L 16-63 [facility] AST [Catalytic activity/Vol] 18 U/L 15-37 [facility] Bilirubin [Mass/Vol] 0.5 mg/dL 0.2-1.0 [facility] Calcium [Mass/Vol] 8.9 mg/dL 8.5-10.1 [facility] Chloride [Moles/Vol] 102 mmol/L 98-107 [facility] Cholesterol [Mass/Vol] 189 mg/dL <=200 [facility] Cholesterol in HDL [Mass/Vol] 46 mg/dL 40-60 [facility] Comment on above: > or =60 mg/dl - LOW CARDIOVASCULAR RISK<40 mg/dl - HIGH CARDIOVASCULAR RISK CO2 [Moles/Vol] 25.8 mmol/L 21.0-32.0 [facility] Creatinine [Mass/Vol] 0.81 mg/dL 0.70-1.30 [facility] GFR/1.73 sq M.predicted MDRD (S/P/Bld) [Vol rate/Area] mL/min/{1.73_m2} >=60 [facility] Glucose [Mass/Vol] 103 mg/dL 74-106 [facility] Potassium [Moles/Vol] 4.3 mmol/L 3.5-5.1 [facility] Protein [Mass/Vol] 7.0 g/dL 6.4-8.2 [facility] Sodium [Moles/Vol] 137 mmol/L 136-145 [facility] Triglyceride [Mass/Vol] 73 mg/dL <=150 [facility] Urea nitrogen [Mass/Vol] 12.0 mg/dL 7.0-18.0 [facility] Urea nitrogen/Creatinine [Mass ratio] 14.8 mg/mg [facility] Laboratory - Hematology and Cell countson 02-01-2024 Immature granulocytes/100 WBC (Bld) 0.4 % 0.0-0.5 [facility] Leukocytes [#/volume] correc rohit for nucleated erythrocytes in Blood by Automated counon 02-01-2024 WBC corrected for nucl RBC Auto (Bld) [#/Vol] 8.1 10 3/uL 4.0-11.0 [facility] Lymphocytes Auto (Bld) [#/Vo l]on 02-01-2024 Lymphocytes (Bld) [#/Vol] 2.3 10 3/uL 1.2-3.8 [facility] Lymphocytes/100 WBC Auto (Bl d)on 02-01-2024 Lymphocytes/100 WBC (Bld) 28.2 % 20.5-60.0 [facility] MCH Auto (RBC) [Entitic mass ]on 02-01-2024 MCH (RBC) [Entitic mass] 31.3 pg 25.9-34.0 [facility] MCHC Auto (RBC) [Mass/Vol]on 02-01-2024 MCHC (RBC) [Mass/Vol] 33.8 g/dL 29.9-35.2 [facility] MCV Auto (RBC) [Entitic vol] on 02-01-2024 MCV (RBC) [Entitic vol] 92.6 fL 80.0-94.0 [facility] Monocytes Auto (Bld) [#/Vol] on 02-01-2024 Monocytes (Bld) [#/Vol] 0.8 10 3/uL 0.3-0.8 [facility] Monocytes/100 WBC Auto (Bld) on 02-01-2024 Monocytes/100 WBC (Bld) 10.2 % 1.7-12.0 [facility] Neutrophils Auto (Bld) [#/Vo l]on 02-01-2024 Neutrophils (Bld) [#/Vol] 4.6 10 3/uL 1.4-6.5 [facility] Neutrophils/100 WBC Auto (Bl d)on 02-01-2024 Neutrophils/100 WBC (Bld) 56.6 % 43.0-75.0 [facility] No Panel Informationon 01-31 Eosinophils # (Auto) 0.3 10 3/uL 0.0-0.7 [facility] Immature Granulocyte # (Auto) 0.03 10 3/uL 0.00-0.03 [facility] Platelet mean volume Auto (B ld) [Entitic vol]on 02-01-2024 Platelet mean volume (Bld) [Entitic vol] 9.5 fL 9.5-13.5 [facility] Platelets Auto (Bld) [#/Vol] on 02-01-2024 Platelets (Bld) [#/Vol] 186 10 3/uL 150-450 [facility] RBC Auto (Bld) [#/Vol]on RBC (Bld) [#/Vol] 4.19 10 6/uL Low 4.70-6.[address] [facility] Serum or plasma albumin/glob ulin mass ratioon 02-01-2024 Albumin/Globulin [Mass ratio] 0.9 {ratio} [facility] Serum or plasma anion gap de terminationon 02-01-2024 Anion gap [Moles/Vol] 13.5 mmol/L [facility] Serum or plasma total choles terol/high density lipoprotein (HDL) cholesterol mass amadeo 02-01-2024 Cholesterol.total/Cho lesterol in HDL [Mass ratio] 4.1 {ratio} [facility] Comment on above: 3.3 - 4.4 LOW RISK4. 4 - 7.1 AVERAGE RISK7.1 - 11.0 MODERATE RISK>11.0 HIGH RISK C REACTIVE PROTEINon CRP [Mass/Vol] 5.1 mg/L Normal 0.0-7.0 [facility] Comment on above: Performed By: #### 6 [id number] #### [facility] [address] SEDIMENTATION RATEon SED RATE 5 mm/hr Normal 0-10 [facility] Comment on above: Performed By: #### [id number] #### [facility] [address] [place] [address], [facility] CBC W/DIFFon 03-11-2021 ABS IMM GRANS 0.0 10*3/uL Normal 0.0-0.2 [facility] Comment on above: Performed By: #### 5 [id number] #### [facility] [address] [place] [address], [facility] ABS NEUTROPHILS 4.7 10*3/uL Normal 1.6-7.6 [facility] Comment on above: Performed By: #### 5 [id number] #### [facility] [address] [place] [address], [facility] Basophils (Bld) [#/Vol] 0.1 10*3/uL Normal 0.0-0.2 [facility] Comment on above: Performed By: #### 5 [id number] #### [facility] [address] [place] [address], [facility] Basophils/100 WBC (Bld) 0.8 % Normal 0.0-1.0 [facility] Comment on above: Performed By: #### 5 [id number] #### [facility] [address] [facility] [place] [address], [facility] Eosinophils (Bld) [#/Vol] 0.1 10*3/uL Normal 0.0-0.5 [facility] Comment on above: Performed By: #### 5 [id number] #### [facility] [address] [facility] [place] [address], [facility] Eosinophils/100 WBC (Bld) 1.4 % Normal 0.0-6.0 [facility] Comment on above: Performed By: #### 5 [id number] #### [facility] [address] [facility] [place] [address], [facility] Erythrocyte distribution width (RBC) [Ratio] 13.2 % Normal 11.5-15.0 [facility] Comment on above: Performed By: #### 5 [id number] #### [facility] [address] [facility] [place] [address], [facility] Hematocrit (Bld) [Volume fraction] 42.0 % Normal 39.0-50.0 [facility] Comment on above: Performed By: #### 5 [id number] #### [facility] [address] Hemoglobin (Bld) [Mass/Vol] 14.5 g/dL Normal 13.0-17.0 [facility] Comment on above: Performed By: #### 5 0103 #### [facility] [address] [place] [address], [facility] IMMATURE GRANS 0.4 % Normal 0.0-1.0 [facility] Comment on above: Performed By: #### 5 [id number] #### [facility] [address] [place] [address], [facility] Lymphocytes (Bld) [#/Vol] 2.8 10*3/uL Normal 1.2-4.0 [facility] Comment on above: Performed By: #### 5 [id number] #### [facility] [address] [place] [address], [facility] Lymphocytes/100 WBC (Bld) 32.7 % Normal 20.0-45.0 [facility] Comment on above: Performed By: #### 5 [id number] #### [facility] [address] [facility] [place] [address], [facility] MCH (RBC) [Entitic mass] 31.4 pg Normal 27.0-33.0 [facility] Comment on above: Performed By: #### 5 [id number] #### [facility] [address] [facility] [place] [address], [facility] MCHC (RBC) [Mass/Vol] 34.5 g/dL Normal 32.0-35.0 [facility] Comment on above: Performed By: #### 5 0103 #### [facility] [address] [place] [address], [facility] MCV (RBC) [Entitic vol] 90.9 fL Normal 82.0-98.0 [facility] Comment on above: Performed By: #### 5 3 #### [facility] [address] [facility] [place] [address], [facility] Monocytes (Bld) [#/Vol] 0.8 10*3/uL Normal 0.1-1.0 [facility] Comment on above: Performed By: #### 5 [id number] #### [facility] [address] [place] [id number], [facility] MONOS 8.8 % Normal 5.0-12.0 [facility] Comment on above: Performed By: #### 5 0103 #### [facility] [address] [place] [address], [facility] Neutrophils/100 WBC (Bld) 55.9 % Normal 40.0-72.0 [facility] Comment on above: Performed By: #### 5 3 #### [facility] [address] [place] [address], [facility] Nucleated RBC/100 WBC (Bld) [Ratio] 0 % Normal 0-0 [facility] Comment on above: Performed By: #### 5 [id number] #### [facility] [address] [place] [address], [facility] PLAT CNT 175 10*3/uL Normal 150-400 [facility] Comment on above: Performed By: #### 5 102 #### [facility] [address] [place] [id number], [facility] RBC (Bld) [#/Vol] 4.62 10*6/uL Normal 4.20-5.70 [facility] Comment on above: Performed By: #### 5 3 #### [facility] [address] [place] [id number], [facility] WBC (Bld) [#/Vol] 8.48 10*3/uL Normal 4.00-10.60 [facility] Comment on above: Performed By: #### 5 102 #### [facility] [address] [place] [id number], [facility] COMP METABOLIC PANELon 03-11 Albumin [Mass/Vol] 4.6 g/dL Normal 3.5-5.7 [facility] Comment on above: Performed By: #### 0 0121 #### [facility] [address] [place] [address], [place] ALKALINE PHOSPH 71 IU/L Normal 34-104 [facility] Comment on above: Performed By: #### 0 0121 #### [facility] [address] [place] [address], [place] ALT [Catalytic activity/Vol] 8 U/L Normal 7-52 [facility] Comment on above: Performed By: #### 0 0121 #### [facility] [address] [place] [address], [place] AST [Catalytic activity/Vol] 14 U/L Normal 13-39 [facility] Comment on above: Performed By: #### 0 0121 #### [facility] [address] [place] [address], [place] Bilirubin [Mass/Vol] 0.5 mg/dL Normal 0.3-1.0 [facility] Comment on above: Performed By: #### 0 0121 #### [facility] [address] [place] [address], [place] Calcium [Mass/Vol] 9.4 mg/dL Normal 8.6-10.3 [facility] Comment on above: Performed By: #### 0 0121 #### [facility] [address] [place] [address], [place] Chloride [Moles/Vol] 103 mmol/L Normal 98-107 [facility] Comment on above: Performed By: #### 0 0121 #### [facility] [address] [place] [address], [place] CO2 [Moles/Vol] 28 mmol/L Normal 21-31 [facility] Comment on above: Performed By: #### 0 0121 #### [facility] [address] [place] [address], [place] Creatinine [Mass/Vol] 0.81 mg/dL Normal 0.70-1.30 [facility] Comment on above: Performed By: #### 0 0121 #### [facility] [address] [place] [address], [place] GFR/1.73 sq M.predicted among blacks MDRD (S/P/Bld) [Vol rate/Area] mL/min/{1.73_m2} Normal >60 [facility] Comment on above: Performed By: #### 0 0121 #### [facility] [address] [place] [address], [place] GFR/1.73 sq M.predicted among non-blacks MDRD (S/P/Bld) [Vol rate/Area] mL/min/{1.73_m2} Normal >60 [facility] Comment on above: Performed By: #### 0 0121 #### [facility] [address] [place] [address], [place] Glucose [Mass/Vol] 101 mg/dL High 70-100 [facility] Comment on above: Performed By: #### 0 0121 #### [facility] [address] [place] [address], [place] Potassium [Moles/Vol] 5.1 mmol/L Normal 3.5-5.1 [facility] Comment on above: Performed By: #### 0 0121 #### [facility] [address] [place] [address], [place] Protein [Mass/Vol] 7.1 g/dL Normal 6.0-8.3 [facility] Comment on above: Performed By: #### 0 0121 #### [facility] [address] [place] [address], [place] Sodium [Moles/Vol] 137 mmol/L Normal 136-145 [facility] Comment on above: Performed By: #### 0 0121 #### [facility] [address] [facility] [place] [address], [facility] Urea nitrogen [Mass/Vol] 12 mg/dL Normal 7-25 [facility] Comment on above: Performed By: #### 0 0121 #### [facility] [address] [facility]. [address] Vital Signs Date Time Vital Sign Value Performing Clinician Facility 06-15-2025 10: Body height 177.8 cm Harvey Ball DO Work Phone: [facility] 06-15-2025 10: Body mass index (BMI) [Ratio] 18.6 kg/m2 Harvey Ball DO Work Phone: [facility] 06-15-2025 10: Body weight 58.96 kg Harvey Ball DO Work Phone: [facility] 06-15-2025 10:040 Diastolic blood pressure 71 mm[Hg] Harvey Ball DO Work Phone: [facility] 06-15-2025 10:13040 Heart rate 78 /min Harvey Ball DO Work Phone: [facility] 06-15-2025 10:040 Respiratory rate 12 /min Harvey Ball DO Work Phone: [facility] 06-15-2025 10:13040 Systolic blood pressure 123 mm[Hg] Harvey Ball DO Work Phone: [facility] 04-13-2025 10: Body height 177.8 cm Harvey Ball DO Work Phone: [facility] 04-13-2025 10:040 Body mass index (BMI) [Ratio] 18.1 kg/m2 Harvey Ball DO Work Phone: [facility] 04-13-2025 10:28-0400 Body temperature 98.2 [degF] Harvey Ball DO Work Phone: [facility] 04-13-2025 10:28-0400 Body weight 57.37 kg Harvey Ball DO Work Phone: [facility] 04-13-2025 10:28-0400 Diastolic blood pressure 79 mm[Hg] Harvey Ball DO Work Phone: [facility] 04-13-2025 10:28-0400 Heart rate 111 /min Harvey Ball DO Work Phone: [facility] 04-13-2025 10:28-0400 Respiratory rate 19 /min Harvey Ball DO Work Phone: [facility] 04-13-2025 10:28-0400 SaO2% (BldA) [Mass fraction] 98 % Harvey Ball DO Work Phone: [facility] 04-13-2025 10:28-0400 Systolic blood pressure 130 mm[Hg] Harvey Ball DO Work Phone: [facility] 12-12-2024 09:58-0400 Body height 177.8 cm [facility] 12-12-2024 09:58-0400 Body mass index (BMI) [Ratio] 19.8 kg/m2 [facility] 12-12-2024 09:58-0400 Body weight 62.7 kg [facility] 12-12-2024 09:58-0400 Diastolic blood pressure 72 mm[Hg] [facility] 12-12-2024 09:58-0400 Heart rate 72 /min [facility] 12-12-2024 09:58-0400 Respiratory rate 12 /min [facility] 12-12-2024 09:58-0400 Systolic blood pressure 128 mm[Hg] [facility] 06-13-2024 09:49-0400 Body height 177.8 cm [facility] 06-13-2024 09:49-0400 Body mass index (BMI) [Ratio] 18.4 kg/m2 [facility] 06-13-2024 09:49-0400 Body weight 58.28 kg [facility] 06-13-2024 09:49-0400 Diastolic blood pressure 76 mm[Hg] [facility] 06-13-2024 09:49-0400 Heart rate 83 /min [facility] 06-13-2024 09:49-0400 Respiratory rate 12 /min [facility] 06-13-2024 09:49-0400 Systolic blood pressure 124 mm[Hg] [facility] 04-21-2024 09:58-0400 Body weight 58.06 kg Monique Sedlak [employer] Work Phone: [employer] [facility] 04-21-2024 09:58-0400 Diastolic blood pressure 72 mm[Hg] Monique Sedlak HAND BRAILLE TRANSCRIBER[employer]SERVICE COUNTER [employer]IER [facility] 04-21-2024 09:58-0400 Heart rate 76 /min Monique Sedlak HAND [employer]RAILLE [employer]ER[employer]SERVICE COUNTER [employer]IER [facility] Phone: [facility] 04-21-2024 09:58-0400 Systolic blood pressure 130 mm[Hg] Monique Sedlak HAND BRAILLE TR[employer]CRIBER[employer]SERVICE COUNTER CASHIER [facility]: [facility] 04-11-2024 08:32-0400 Body height 177.8 cm [facility] 04-11-2024 08:32-0400 Body mass index (BMI) [Ratio] 17.9 kg/m2 [facility] 04-11-2024 08:32-0400 Body weight 56.81 kg [facility] 04-11-2024 08:32-0400 Diastolic blood pressure 78 mm[Hg] [facility] 04-11-2024 08:32-0400 Heart rate 75 /min [facility] 04-11-2024 08:32-0400 Respiratory rate 12 /min [facility] 04-11-2024 08:32-0400 Systolic blood pressure 130 mm[Hg] [facility] 03-11-2024 12:05-0400 Body height 177.8 cm [facility] 03-11-2024 12:05-0400 Body mass index (BMI) [Ratio] 17.6 kg/m2 [facility] 03-11-2024 12:05-0400 Body weight 55.9 kg [facility] 03-11-2024 12:05-0400 Diastolic blood pressure 91 mm[Hg] [facility] 03-11-2024 12:05-0400 Heart rate 81 /min [facility] 03-11-2024 12:05-0400 Respiratory rate 12 /min [facility] 03-11-2024 12:05-0400 Systolic blood pressure 164 mm[Hg] [facility] 02-18-2024 11:42-0400 Body height 177.8 cm [facility] 02-18-2024 11:42-0400 Body mass index (BMI) [Ratio] 18.5 kg/m2 [facility] 02-18-2024 11:42-0400 Body weight 58.57 kg [facility] 02-18-2024 11:42-0400 Diastolic blood pressure 89 mm[Hg] [facility] 02-18-2024 11:42-0400 Heart rate 84 /min [facility] 02-18-2024 11:42-0400 Respiratory rate 16 /min [facility] 02-18-2024 11:42-0400 Systolic blood pressure 166 mm[Hg] [facility] 01-12-2024 13:29-0400 Body height 177.8 cm [facility] 01-12-2024 13:29-0400 Body mass index (BMI) [Ratio] 18.5 kg/m2 [facility] 01-12-2024 13:29-0400 Body weight 58.57 kg [facility] 01-12-2024 13:29-0400 Diastolic blood pressure 90 mm[Hg] [facility] 01-12-2024 13:29-0400 Heart rate 81 /min [facility] 01-12-2024 13:29-0400 Respiratory rate 12 /min [facility] 01-12-2024 13:29-0400 Systolic blood pressure 146 mm[Hg] [facility] 06-10-2023 08:30-0400 Body height 177.8 cm Harvey Ball Other [employer] Other 06-10-2023 08:30-0400 Body mass index (BMI) [Ratio] 18.42 kg/m2 Harvey Ball Other [employer] Other 06-10-2023 08:30-0400 Body weight 58.24 kg Harvey Ball Other [employer] Other 06-10-2023 08:30-0400 Diastolic blood pressure 75 mm[Hg] Harvey Ball Other [employer] Other 06-10-2023 08:30-0400 Respiratory rate 12 /min Harvey Ball Other [employer] Other 06-10-2023 08:30-0400 Systolic blood pressure 149 mm[Hg] Harvey Ball Other [employer] Other 12-25-2022 09:45-0400 Body height 177.8 cm Harvey Ball Other [employer] Other 12-25-2022 09:45-0400 Body mass index (BMI) [Ratio] 18.85 kg/m2 Harvey Ball Other [employer] Other 12-25-2022 09:45-0400 Body weight 59.6 kg Harvey Ball Other [employer] Other 12-25-2022 09:45-0400 Diastolic blood pressure 87 mm[Hg] Harvey Ball Other [employer] Other 12-25-2022 09:45-0400 Respiratory rate 16 /min Harvey Ball Other [employer] Other 12-25-2022 09:45-0400 Systolic blood pressure 132 mm[Hg] Harvey Ball Other [employer] Other 05-16-2022 11:20-0400 Body height 177.8 cm Lail Ramon Other [employer] Other 05-16-2022 11:20-0400 Body mass index (BMI) [Ratio] 17.22 kg/m2 Lali Ramon Other [employer] Other 05-16-2022 11:20-0400 Body temperature 98 [degF] Lali Ramon Other [employer] Other 05-16-2022 11:20-0400 Body weight 54.43 kg Lali Ramon Other [employer] Other 05-16-2022 11:20-0400 Diastolic blood pressure 93 mm[Hg] Lali Ramon Other [employer] Other 05-16-2022 11:20-0400 Respiratory rate 18 /min Lali Ramon Other [employer] Other 05-16-2022 11:20-0400 SaO2% (BldA) [Mass fraction] 100 % Lali Bajwaler Other [employer] Other 05-16-2022 11:20-0400 Systolic blood pressure 134 mm[Hg] Lali Ramon Other [employer] Other Encounters Encounter Date Encounter Type Care Provider Facility Start: 06-15-2025 End: 06-15-2025 ambulatory Harvey Ball DO Work Phone: [facility] Work Phone: Start: 06-15-2025 End: 06-15-2025 Patient encounter procedure Harvey Stover DO -[facility] Work Phone: Start: 06-15-2025 End: 06-15-2025 Patient encounter status Harvey Stover DO [facility] Start: 05-12-2025 Non-patient / Non-visit Harvey Twan bernard DO -[facility] Work Phone: Start: 04-13-2025 End: 04-13-2025 ambulatory Harvey Stover DO Work Phone: [facility] Work Phone: Start: 04-13-2025 End: 04-13-2025 Patient encounter procedure Lali Ramon HAND BRAILLE TRANSCRIBER -[facility] Work Phone: Start: 03-07-2025 End: 03-07-2025 ambulatory REGULO Cormier [facility] Start: 12-12-2024 End: 12-12-2024 ambulatory [facility] Work Phone: Start: 12-12-2024 End: 12-12-2024 Patient encounter procedure [facility] Work Phone: Start: 09-06-2024 End: 09-06-2024 ambulatory REGULO Cormier [facility] Start: 08-03-2024 ambulatory DERREK COVARRUBIAS [facility] Start: 07-25-2024 [facility] Start: 07-12-2024 End: 07-12-2024 ambulatory [facility] Start: 06-17-2024 End: 06-17-2024 ambulatory [facility] Start: 06-15-2024 End: 06-15-2024 ambulatory [facility] Start: 06-15-2024 ambulatory DERREK [facility] Start: 06-13-2024 End: 06-13-2024 ambulatory [facility] Work Phone: Start: 06-13-2024 End: 06-13-2024 Encounter for general adult medical examination without abnormal findings [facility] Start: 06-13-2024 End: 06-13-2024 Patient encounter procedure [facility] Work Phone: Start: 06-09-2024 Patient encounter status [facility] Start: 04-21-2024 End: 04-21-2024 Office outpatient visit 15 minutes [facility] HAND BRAILLE TRANSCRIBER-SERVICE COUNTER CASHIER [facility] Comment on above: Sequelae, post-strok e (Primary Dx) Start: 04-21-2024 End: 04-21-2024 ambulatory [facility] Start: 04-11-2024 End: 04-11-2024 ambulatory [facility] Work Phone: Start: 04-11-2024 End: 04-11-2024 Patient encounter procedure [facility] Work Phone: Start: 03-24-2024 End: 03-24-2024 ambulatory NIK BAUTISTA Not Available Start: 03-22-2024 End: 03-22-2024 ambulatory ROXANA KELBLEY Not Available Start: 03-17-2024 End: 03-17-2024 ambulatory ROXANA KELBLEY Not Available Start: 03-15-2024 End: 03-15-2024 ambulatory ROXANA KELBLEY Not Available Start: 03-11-2024 End: 03-11-2024 ambulatory [facility] Work Phone: Start: 03-11-2024 End: 03-11-2024 Patient encounter procedure [facility] Work Phone: Start: 03-10-2024 End: 03-10-2024 Telephone encounter [facility] Comment on above: Fax OV Notes Start: 03-10-2024 End: 03-10-2024 ambulatory GUILLAUME SWIFT Not Available Start: 03-09-2024 End: 03-30-2024 Telephone encounter Michelle Pedersen [facility] Comment on above: Care Navigation Start: 03-08-2024 End: 03-08-2024 ambulatory LAKESHA BENITEZ Not Available Start: 03-07-2024 End: 04-13-2024 Telephone encounter Adwoa Qiuñonez RN [facility] Start: 03-07-2024 Non-patient / Non-visit [facility] Work Phone: Start: 03-06-2024 ambulatory HAR[facility]Y [facility] Start: 03-04-2024 Non-patient / Non-visit [facility] Work Phone: Start: 03-04-2024 End: 03-09-2024 Emergency department patient visit HARVEY Bernal [facility] Start: 03-03-2024 Non-patient / Non-visit [facility] Work Phone: Start: 02-18-2024 End: 02-18-2024 Patient encounter procedure [facility] Work Phone: Start: 02-01-2024 Non-patient / Non-visit [facility] Work Phone: Start: 01-22-2024 End: 01-22-2024 ambulatory DO Harvey Ball Work Phone: [facility] Work Phone: Start: 01-22-2024 End: 01-22-2024 Patient encounter procedure DO Harvey Ball Work Phone: [facility] Work Phone: Start: 01-22-2024 Non-patient / Non-visit [facility] Work Phone: Start: 01-12-2024 End: 01-12-2024 ambulatory [facility] Work Phone: Start: 01-12-2024 End: 01-12-2024 Patient encounter procedure [facility] Work Phone: Start: 12-21-2023 Non-patient / Non-visit [facility] Work Phone: Start: 06-12-2023 End: 06-12-2023 ambulatory Harvey Stover Other [employer] Other Start: 06-12-2023 Telephone encounter Harvey Stover [facility] Start: 06-10-2023 End: 06-10-2023 ambulatory Harvey Stover Other [employer] Other Start: 06-10-2023 Encounter for genera l adult medical examination without abnormal findings Harvey Stover [facility] Start: 06-10-2023 Periodic preventive med est patient 40-64yrs Harvey Stover [facility] Start: 12-25-2022 End: 12-25-2022 ambulatory Harvey Stover Other [employer] Other Start: 12-25-2022 Office outpatient vi sit 15 minutes Harvey Stover [facility] Start: 05-16-2022 End: 05-16-2022 ambulatory Lali Ramon Other [employer] Other Start: 05-16-2022 Office outpatient ne w 20 minutes Lali Ramon [facility] Start: 07-03-2021 End: 07-03-[address] HARVEY STOVER Facility: Procedures Date Procedure Procedure Detail Performing Clinician Start: 04-13-2025 Plain chest X-ray Abdullahi mary Stover DO Work Phone: Start: 03-07-2025 Follow-up visit Follow-up REGULO HENRY Start: 01-08-2023 Adult depression screening assessment Tommy Yepez Plan of Treatment Date Care Activity Detail Author Start: 06-05-2024 Influenza vaccination Influenza Vaccine [facility] Start: 04-21-2024 End: 04-21-2024 Patient encounter procedure 04/21/2024 10:00 AM EDT Office Visit [facility] [address] [place] [id number] CelestinoMonique corona, HAND BRAILLE TRANSCRIBER-SERVICE COUNTER CASHIER [address], [address] [address] [facility] Start: 04-11-2024 Patient referral [facility] Work Phone: Start: 01-09-2024 Depression Screening [facility] Start: 03-20-2020 DTaP,Tdap and Td Vaccines (2 - Tdap) DTaP,Tdap and Td Vaccines (2 - Tdap) [facility] Start: 2013 Administration of varicella zoster vaccine Zoster (Shingles) Vaccine (1 of 2) [facility] Start: 1981 Adult BMI Screening Adult BMI Screening [facility] Start: 1975 Tobacco Screening Tobacco Screening [facility] Comprehensive metabo lic 1999 panel - Serum or Plasma [facility] Comprehensive metabo lic 1999 panel - Serum or Plasma [facility] Comprehensive metabo lic 1999 panel - Serum or Plasma [facility] MR Cervical spine WO contrast [facility] MRA Head vessels WO contrast [facility] Patient Education Low back pain in adults [facility] Work Phone: Patient referral [facility] Work Phone: US.doppler Carotid arteries - bilateral [facility] XR Unspecified body region Views [facility] Immunizations Immunization Date Immunization Notes Care Provider Fa cris 03-20-2010 diphtheria, tetanus toxoids and acellular pertussis vaccine, unspecified formulation Harvey Ck Other [facility] Payers Date Payer Category Payer Medicare [id number] 2025 Self-pay 2023 Unknown [employer] OUT OF STATE PPO/TRUST [id number] 2023-Present [phone] [id number] [place] [address] [id number] 2023 Unknown [id number] 1965 Unknown [id number] 1963 Unknown [id number] 1963 Unknown [id number] 1963 Unknown [id number] 1963 Unknown [id number] [id number] 1963 Unknown [id number] 1963 Unknown [id number] 1963 Unknown [id number] [id number] 1963 Unknown [id number] [id number] 1963 Unknown [id number] [id number] 1963 Unknown [id number] [id number] 1963 Unknown [id number] [id number] 1963 Unknown [id number] [id number] 1959 Unknown [id number] Unknown [id number] Social History Date Type Detail Facility Start: 11-15-2020 End: 01-08-2023 Sex Assigned At [facility] Other Start: 1965 Sex Assigned At Male [facility] Tobacco smoking stat us [facility] Tobacco smoking consumption unknown [facility] Start: 11-15-2020 End: 01-08-2023 History of Social function [facility] Adolescent depressio n screening assessment 0 [facility] Start: 1965 Sex assigned at Not on file [facility] Start: 04-21-2024 Tobacco smoking status [facility] Ex-smoker [facility] History of tobacco use Current smoker [facility] History of tobacco use Cigarette Smoker P [facility] Start: 12-12-2024 Sex Male (finding) [facility] Start: 06-15-2025 Tobacco smoking status [facility] Smokes tobacco daily (finding) [facility] Clinical Notes 03-12-2018 to 04-13-2025 Note Date & Type Note Facility 04-13-2025 Evaluation note Diagnosis Onset Date Resolution Contusion of rib on left side noneactive April 13, 2025 10:23am [facility] Work Phone: 1(241) 735-749107-10-2025 Evaluation note* Diagnosis Onset Date Resolution Status Admit Date Contusion of rib on left side noneac tive April 13, 2025 10:23am Ankylosing spondylitis lumba r region acute June 15, 2025 9:46am Cerebral atherosclerosis acute June 15, 2025 9:46am Cervical spondylosis acute Jun 9:46am Hypercholesterolemia acute Jun 9:46am Hypertension acute June 152024 9:46am Lumbar spondylosis acute 2024 9:46am Muscle fasciculation acute Jun 9:46am Nicotine dependence acute 2024 9:46am Rheumatoid arthritis involvi ng both hands with positive rheumatoid factor acute June 9:46am Screening PSA (prostate spec ific antigen) acute June 15, 2025 9:46am Wellness examination acute Jun 9:46am [facility] Work Phone: 1(280) 980-414906-03-2025 NoteSubjective Patient ID: Jordan Aguilar is a 59 y.o. male who presents for Ankylosing spondylitis of multiple sites in spine and Follow-up. HPI Doing very well Patient presents for 6 month follow up for ankylosing spondylitis and seropositive RA. He has been on Humira for 5 months roughly. To review, he was on Nabumetone for Ank. Spon. But this was discontinued in February as he had a stroke and was placed on Plavix. Thus, Humira was resumed at that time. He states that his hands are doing well and he has no pain or stiffness there, however he has continued to have lower back stiffness in the AM which lasts roughly 30 min. He doesn't feel like Humira has helped though. He tries to stay as active as he can as that is the only thing that really helps. He also has neuropathy in his feet and now his arms as well, he is following up with neurosurgery who are considering surgical intervention for cervical radiculopathy. 8 system review was obtained with pertinent findings as noted above in HPI and otherwise is negative in detail. Objective Visit Vitals BP 123/75 (BP Location: Left arm, Patient Position: Sitting, BP Cuff Size: Adult) Pulse 80 Physical Exam Constitutional: Appearance: He is not ill-appearing. Musculoskeletal: Left shoulder: Decreased range of motion. Cervical back: Pain with movement present. Left hip: Decreased range of motion. Neurological: Mental Status: He is alert. Psychiatric: Mood and Affect: Affect normal. Behavior: Behavior is cooperative. Assessment/Plan 59 y.o. with longstanding history of ankylosing spondylitis and seropositive rheumatoid arthritis who has had multiple laminectomies in the past and at one time he was taking methotrexate and Humira presented today. He was recently hospitalized for a mini-stroke, started on aspirin, Plavix, amlodipine, and Lipitor, his Nabumetone was discontinued. Thus he was resumed on Humira about 5 months ago. 1. Seropositive rheumatoid and ankylosing spondylitis - Patient's Nabumetone was D/C'd due to starting on Plavix s/p stroke. -Continue symptomatic management with Tylenol arthritis -Check ESR and CRP -[facility] Attestation signed by Regulo Henry MD at 09/07/2024 11:04 AM Using the attestations below, the signing clinician agrees that I have read and verified that I have personally reviewed the documentation and ensure that the documentation accurately reflects the encounter. GC: I saw this patient on the day of the encounter, performed the hahn portion(s) of the service participated in the management, and confirmed the resident's documentation. Please note that I may need additional personal documentation. Subjective Patient ID: Jordan Aguilar is a 59 y.o. male who presents for Ankylosing spondylitis of multiple sites in spine and Follow-up. HPI Patient presents for 6 month follow up for ankylosing spondylitis and seropositive RA. He has been on Humira for 5 months roughly. To review, he was on Nabumetone for Ank. Spon. But this was discontinued in February as he had a stroke and was placed on Plavix. Thus, Humira was resumed at that time. He states that his hands are doing well and he has no pain or stiffness there, however he has continued to have lower back stiffness in the AM which lasts roughly 30 min. He doesn't feel like Humira has helped though. He tries to stay as active as he can as that is the only thing that really helps. He also has neuropathy in his feet and now his arms as well, he is following up with neurosurgery who are considering surgical intervention for cervical radiculopathy. 8 system review was obtained with pertinent findings as noted above in HPI and otherwise is negative in detail. Objective Visit Vitals BP 118/70 (BP Location: Right arm, Patient Position: Sitting, BP Cuff Size: Adult) Pulse 71 Physical Exam Constitutional: Appearance: He is not ill-appearing. Musculoskeletal: Left shoulder: Decreased range of motion. Cervical back: Pain with movement present. Left hip: Decreased range of motion. Neurological: Mental Status: He is alert. Psychiatric: Mood and Affect: Affect normal. Behavior: Behavior is cooperative. Assessment/Plan 59 y.o. with longstanding history of ankylosing spondylitis and seropositive rheumatoid arthritis who has had multiple laminectomies in the past and at one time he was taking methotrexate and Humira presented today. He was recently hospitalized for a mini-stroke, started on aspirin, Plavix, amlodipine, and Lipitor, his Nabumetone was discontinued. Thus he was resumed on Humira about 5 months ago. 1. Seropositive rheumatoid and ankylosing spondylitis - Patient's Nabumetone was D/C'd due to starting on Plavix s/p stroke. - Has been on Humira for at least 5 months - continues to have lower back stiffness lasting roughly 30 min in the morning. Does not believe it has been helpful at all. -As Humira has not been effective, we will discontinue it. -Continue symptomatic management with Tylenol arthritis -Check ESR and CRP -Follow-up in [address] [facility] NoteIn person visit Chief complaint - follow up for chronic back pain and also for right arm pain/tingling [place]: 59 y/o male - When I last saw him I recommended T-spine MRI, EMG and cervical flexion/extension x-rays. From last visit Review of films; Reviewed his brain MRI - shows the small right internal capsule lacunar infarct And his c-spien MRI shows right sided c5-6 foraminal stenosis and left sided c6-7 foraminal stenosis No clear significant central stenosis No clear cord signal change (? Maybe mild cord signal change at c8 level) A/P: 59 yo male - has both neck and lower back problems. Has bilateral hyper-reflexia - more in the legs than his arms Has spontaneous cramping in his legs as well - both sides in the calves He had prior EMG of the legs -not the arms Has modest tinel's over the ulnar nerve at the elbow but it does not really replicate his primary sensory complaint I recommended Flex/ex c-spine x-rays MRI T-spine due to the hyperreflexia in his legs and cramping EMG of the right arm - Dr. Chau did his prior EMG FU in about 1.5 months Derrek Covarrubias MD I sent him for x-rays of c-spine and T-spine MRI Also sent him for EMG All of that has been completed He had prior surgery on his lower back He has some nagging pain in the lower back Has both necka dn back issues ROS: As kathleen No past medical history on file. Past Surgical History: Procedure Laterality Date BACK SURGERY 07/01/2016 x2 Current Outpatient Medications on File Prior to Visit Medication Sig Dispense Refill adalimumab (Humira) 40 mg/0.8 mL syringe kit prefilled syringe Inject 40 mg subcutaneous every 14 days 2 each 11 adalimumab (Humira,CF, Pen) 40 mg/0.4 mL pen injector kit pen-injector Inject 1 Pen (40 mg) under the skin every 14 (fourteen) days. 2 each 11 amLODIPine (Norvasc) 5 mg tablet Take 5 mg by mouth in the morning. aspirin 81 mg chewable tablet Chew 81 mg in the morning. atorvastatin (Lipitor) 40 mg tablet Take 40 mg by mouth in the morning. clopidogrel (Plavix) 75 mg tablet Take 75 mg by mouth in the morning. gabapentin (Neurontin) 300 mg capsule Take one cap PO three times a day 90 capsule 6 losartan (Cozaar) 25 mg tablet Take 25 mg by mouth in the morning. nabumetone (Relafen) 750 mg tablet Take one tab PO twice daily (Patient not taking: Reported on 03/07/2024) 60 tablet 11 sildenafil (Viagra) 100 mg tablet TAKE 1/2 (ONE-HALF) TO 1 (ONE) TABLET BY MOUTH DAILY NEEDED MUST LAST 30 DAYS No current facility-administered medications on file prior to visit. No Known Allergies Exam; Vss Cooperative Nc/at No family present Mood/affect normal Awake, alert, oriented CN intact Speech, cognition intact Motor intact Sensory intact There was no clear tinel's idetnfied with tapping over the right ulnar nerve in the upper arm, near the elbow and in the forearm Ambulatory Coordination intact Reflexes - deferred Review of films; I personally reviewed his MRI T-spine, MRI C-spine and flexion extension x-rays of the c-spine There is no compression/pathology in the t-spine The c-spine MRI shows c5-6 and c6-7 (and some c7-T1) spondyloiss with foramianl stenosis and some central stenosis - there is no clear cord signal change The EMG did not show any clear evidence of ulnar neuropathy A/P 59 y/o male - has cervical spondylosis, right arm pain and tingling (which could potentially be cerivcal radiuclopathy or possibly ulnar neuropathy - though no tinel's over the right ulnar nerve). He feels like he will just monitor things - if they worsen he will return Has chronic nagging sensory change in feet, chronic nagging back pain in lower back Had prior L5-S1 fusion (Dr. Lucio) His MRI T-spine does not show any compression His c-spine MRI shows spondylosis primarily at c5-6 and c6-7 (? Maybe some foraminal stenosis on the right side at c8 (c7-T1). His EMG did not support clear compression of the ulnar nerve on the right side His symptoms in the arm are primarily in the ulnar distribution (right side) If he were to have surgery in the future I think it might be c5-6 and c6-7 acf (+/- c7-T1) He will return if things worsen [facility] Note ASSESSMENT/PLAN: Diagnoses and all orders for this visit: Ulnar neuropathy of right upper extremity - EMG Cervical spondylosis - EMG Derrek Covarrubias MD EMG Impression: Sensory peripheral neuropathy, supported by prolongation of latency of the median and ulnar sensory potentials Despite symptoms in the ulnar nerve distribution, there was no evidence of ulnar nerve compression at the elbow. There was no clear evidence for radiculopathy on today's study. Plan: Follow-up with referring provider for the next step in treatment. Casandra Chau MD SUBJECTIVE: Jordan Aguilar is a 59 y.o. male who presents to [facility] today for EMG HPI: Patient reports a history of worsening numbness and tingling mostly in the fourth and fifth digits of the right arm with associated shooting pain up to the elbow and shoulder area. Appears to be worse with movement. Reports minimal associated pain or weakness. Review of Systems No fever no chills Patient Active Problem List Diagnosis Chronic back pain Corticosteroids adverse reaction Family history of rheumatoid arthritis Idiopathic peripheral neuropathy Injury of lung Lumbar post-laminectomy syndrome Numbness of foot Polyarthropathy Rheumatoid arthritis (CMS/HCC) Ankylosing spondylitis of multiple sites in spine (CMS/HCC) Low back pain Neuropathy Screening-pulmonary TB Encounter for long-term (current) use of medications Outpatient Medications Prior to Visit Medication Sig Dispense Refill adalimumab (Humira) 40 mg/0.8 mL syringe kit prefilled syringe Inject 40 mg subcutaneous every 14 days 2 each 11 adalimumab (Humira,CF, Pen) 40 mg/0.4 mL pen injector kit pen-injector Inject 1 Pen (40 mg) under the skin every 14 (fourteen) days. 2 each 11 amLODIPine (Norvasc) 5 mg tablet Take 5 mg by mouth in the morning. aspirin 81 mg chewable tablet Chew 81 mg in the morning. atorvastatin (Lipitor) 40 mg tablet Take 40 mg by mouth in the morning. clopidogrel (Plavix) 75 mg tablet Take 75 mg by mouth in the morning. gabapentin (Neurontin) 300 mg capsule Take one cap PO three times a day 90 capsule 6 losartan (Cozaar) 25 mg tablet Take 25 mg by mouth in the morning. nabumetone (Relafen) 750 mg tablet Take one tab PO twice daily (Patient not taking: Reported on 03/07/2024) 60 tablet 11 sildenafil (Viagra) 100 mg tablet TAKE 1/2 (ONE-HALF) TO 1 (ONE) TABLET BY MOUTH DAILY NEEDED MUST LAST 30 DAYS No facility-administered medications prior to visit. No Known Allergies OBJECTIVE: Vitals: 07/25/24 1030 BP: 130/71 Pulse: 81 Weight: 59.4 kg (131 lb) Height: 1.778 m (5' 10 ) Body mass index is 18.8 kg/m???. Physical Exam: On examination there is no definite atrophy. Patient has a negative Nahomi. Tinel's at the elbow was negative. Studies Reviewed: None Procedures: Ovid Protocol / Time: Immediately prior to the procedure a time out was called. Relevant documents were present and verified. Site/side verified. Patient identity confirmed verbally with patient. This timeout verifies correct patient, procedure, equipment, sales support consultant and site/side were marked as required. Verbal consent was obtained, and consent given by patient. Risks of the procedure and alternatives discussed as below and include bleeding, infection and pain. Pneumothorax is an additional risk for needle studies near the lung area. Patient was agreeable to proceed with testing. Please see the scanned copy of the EMG report in the chart for additional details regarding the findings on today's electrodiagnostic study. Median: Median sensory demonstrated prolongation in latency and low amplitude. Median motor was within normal limits. Ulnar: Ulnar sensory demonstrated prolongation of latency. Ulnar motor was within normal limits with a normal conduction velocity and no significant drop across the elbow. Needle study: Needle study was unremarkable. There is no spontaneous activity, no significant chronic findings including changes in recruitment and polyphasic potentials. See above for Impression NOTE: Nerves in the tabulated EMG report that do not have a latency or amplitude value listed should be interpreted as no response This note was completed using a voice alligator shear operator system. Every effort was made to ensure accuracy; however, inadvertent computerized alligator shear operator errors may be present, please contact MD if any information is unclear.[facility]09-11-2024 NoteIn person visit Chief complaint: both neck and back problems - and tingling into the right arm - mostly c8 or maybe ulnar distribution [place]: 89 y/o male For a long time he had an issue with his neck Like a stinger - near the posterior neck He thought maybe from carrying shingles etc He then developed an issue with his hip and back He fell off a ladder and broke his hip - about 2014 The doctor that took care of him for his hip fracture also got imaging of his back Dr. Lucio - in [place] He then had surgery x 2 - the first to clean out his back and then later he had a surgery to put in screws/rods/plates He says that the doctor thought he really shouldn't have problems after that He has DDD and RA He says it was about a year between the two surgeries It would take him about an hour to get out of bed He thinks the second surgery did help some He said the neuropathy in the left side - now the right side has pretty much caught up He had multiple EMGs (He thinks the EMG was done here at [facility] - He says that he still has progressive neuropathy In the legs/feet - he feels worsening Currently up to about the ankles - maybe lower calves He has problems with his right arm and into his fingers -4/5th digits This is tingling Then he had a small stroke/TIA and he got some tingling in his left hand too He had MRI of both his brain and his neck Most of the pain in his neck comes and goes But the right arm problems is kind of always there He is a bike rider - about 15 miles per day - at least 1 hour per day He saw neurology at [facility] He isn't sure which doctor he saw a doctor about 4 years ago That was shortly after his last emg His right arm problem which is pretty consistent is along the ulnar distribution He said for the left side it is hard to tell - he has RA - with pain in his hand And also had the TIA He never had neck surgery No history of carpal tunnel surgery or ulnar nerve surgery He doesn't think that he has ever had an EMG on his arms/neck ROS: As above No past medical history on file. Past Surgical History: Procedure Laterality Date BACK SURGERY 07/01/2016 x2 Current Outpatient Medications on File Prior to Visit Medication Sig Dispense Refill adalimumab (Humira) 40 mg/0.8 mL syringe kit prefilled syringe Inject 40 mg subcutaneous every 14 days 2 each 11 adalimumab (Humira,CF, Pen) 40 mg/0.4 mL pen injector kit pen-injector Inject 1 Pen (40 mg) under the skin every 14 (fourteen) days. 2 each 11 amLODIPine (Norvasc) 5 mg tablet Take 5 mg by mouth in the morning. aspirin 81 mg chewable tablet Chew 81 mg in the morning. atorvastatin (Lipitor) 40 mg tablet Take 40 mg by mouth in the morning. gabapentin (Neurontin) 300 mg capsule Take one cap PO three times a day 90 capsule 6 losartan (Cozaar) 25 mg tablet Take 25 mg by mouth in the morning. sildenafil (Viagra) 100 mg tablet TAKE 1/2 (ONE-HALF) TO 1 (ONE) TABLET BY MOUTH DAILY NEEDED MUST LAST 30 DAYS clopidogrel (Plavix) 75 mg tablet Take 75 mg by mouth in the morning. nabumetone (Relafen) 750 mg tablet Take one tab PO twice daily (Patient not taking: Reported on 03/07/2024) 60 tablet 11 No current facility-administered medications on file prior to visit. No Known Allergies Exam; BP (!) 132/99 (BP Location: Right arm, Patient Position: Sitting, BP Cuff Size: Adult) Pulse 70 Temp 36.9 ???C (98.4 ???F) (Oral) Ht 1.778 m (5' 10 ) Wt 59.5 kg (131 lb 3.2 oz) SpO2 99% BMI 18.83 kg/m??? Age appropriate no family present NC/AT Well developed, well nourished Mood/affect normal Awake, alert, oriented CN intact Speech intact Cognition intact Motor: no clear weakness in his bilateral UE and LE Sensory: - parastehsia in right arm/hand - into the 5th finger - some in the forearm Ambulatory Station intact Coordination intact Reflexes: - he is hyper-reflexic with clonus and spreading of the patellar reflex - he has some less prominent hyper-reflexia in the arms Review of films; Reviewed his brain MRI - shows the small right internal capsule lacunar infarct And his c-spien MRI shows right sided c5-6 foraminal stenosis and left sided c6-7 foraminal stenosis No clear significant central stenosis No clear cord signal change (? Maybe mild cord signal change at c8 level) A/P: 59 yo male - has both neck and lower back problems. Has bilateral hyper-reflexia - more in the legs than his arms Has spontaneous cramping in his legs as well - both sides in the calves He had prior EMG of the legs -not the arms Has modest tinel's over the ulnar nerve at the elbow but it does not really replicate his primary sensory complaint I recommended Flex/ex c-spine x-rays MRI T-spine due to the hyperreflexia in his legs and cramping EMG of the right arm - Dr. Chau did his prior EMG FU in about 1.5 months Derrek Covarrubias MD[facility]07-18-[facility]24 History of Present illness Narrative* Monique Kulkarni, CHAU-SERVICE COUNTER CASHIER - 04/21/2024 10:00 AM EDT Images from the original note were not included. [facility] [address] [facility] [id number] Patient: Jordan Aguilar Date of : 1965 Encounter Date: 04/21/2024 Patient Care Team: Harvey Stover DO as PCP - General (Internal Medicine) Reason for visit: Hospital Follow Up History of Present Illness: Subjective: Jordan Aguilar is a right handed 59 y.o. male with past medical history significant for hypertension, hyperlipidemia, rheumatoid arthritis, chronic back pain, and former smoker who was hospitalized in (02/2024) for right thalamic ischemic stroke secondary to small vessel disease from uncontrolled risk factors. He was discharged on dual antiplatelet therapy for 21 days followed by aspirin andstatin indefinitely. Patient is being seen in clinic today for routine follow up. Jordan Aguilar is seen in clinic today alone. He reports he has returned to baseline without residual stroke symptoms. At baseline, he has neuropathy in his feet and hands in addition to chronicback pain for which he is scheduled to follow up with neurosurgeon at [facility]. He questions when he can have surgery if recommended by neurosurgery. Jordan is residing at home and remains independent in all ADLs and iADLs. He completed outpatient therapy. He ambulates independently. Jordan has returned to driving without difficulty. No concerns for poor appetite, sleep disturbance, or depression. He is compliant with his medications including aspirin and statin after completing course of plavix.His blood pressure is acceptable at 130/72. He is happy to report he has quit smoking since leavingthe hospital. Jordan follows up with his PCP as directed. Past Medical, Family, Surgical, and Social History Update: The following portions of the patient's history were reviewed and updated as appropriate: allergies, current medications, past family history, past medical history, past social history, past surgicalhistory and problem list. Review of Systems Review of Systems Constitutional: Negative for decreased appetite, malaise/fatigue, weight gain and weight loss. HENT: Negative for nosebleeds. Eyes: Negative for blurred vision, double vision, vision loss in left eye, vision loss in right eyeand visual disturbance. Cardiovascular: Negative for irregular heartbeat, leg swelling, near-syncope, palpitations and syncope. Respiratory: Negative for shortness of breath and sleep disturbances due to breathing. Hematologic/Lymphatic: Negative for bleeding problem. Does not bruise/bleed easily. Skin: Negative for poor wound healing. Musculoskeletal: Positive for back pain, muscle cramps, muscle weakness and neck pain. Negative forfalls and myalgias. Gastrointestinal: Negative for dysphagia. Neurological: Negative for aphonia, difficulty with concentration, disturbances in coordination, dizziness, focal weakness, headaches, light-headedness, loss of balance, numbness, paresthesias, seizures, sensory change, vertigo and weakness. Psychiatric/Behavioral: Negative for altered mental status, depression and memory loss. The patientdoes not have insomnia and is not nervous/anxious. History reviewed. No pertinent past medical history. History reviewed. No pertinent family history. History reviewed. No pertinent surgical history. Current Outpatient Medications Medication Sig Dispense Refill adalimumab (HUMIRA) 40 mg/0.8 mL injection Inject 40 mg subcutaneous every 14 days amLODIPine (NORVASC) 5 mg tablet Daily aspirin 81 mg Daily atorvastatin (LIPITOR) 40 mg tablet Daily gabapentin (NEURONTIN) 300 mg capsule Take 1 capsule (300 mg total) by mouth 3 (three) times a day.Use 1 cap at night and 1 cap at late afternoon for 1 week then 1 cap 3 times daily HUMIRA,CF, PEN 40 mg/0.4 mL pen injector kit Inject 40 mg under the skin every 14 (fourteen) days. losartan (COZAAR) 25 mg tablet Daily No current facility-administered medications for this visit. (All medications reviewed and updated by provider since last office visit or hospitalization) Tobacco History: Social History Tobacco Use Smoking Status Former Types: Cigarettes Smokeless Tobacco Not on file (If patient a smoker, smoking cessation counseling offered) Social History: Social History Substance and Sexual Activity Alcohol Use None Allergies: No Known Allergies Objective: BP 130/72 Pulse 76 Wt 58.1 kg (128 lb) Last Neuro Imaging: No new cerebral imaging to review. MRI brain: Right thalamic ischemic stroke CTA head/ neck: no large vessel occlusion or flow limiting stenosis Physical Exam: Neurology Physical Exam General Appearance: Alert, cooperative, and in no distress Head: Normocephalic, without obvious abnormality, atraumatic Eyes: conjunctivae/corneas clear. PERRL, EOM's intact. Neck: supple, symmetrical, trachea midline Lungs: Non-labored Heart: regular rate and rhythm Extremities: extremities normal, atraumatic, no cyanosis or edema Skin: Skin color, texture, turgor normal. No rashes or lesions Neurologic: NIH Stroke Scale 1a Level of consciousness: 0=alert; keenly responsive 1b. LOC questions: 0=Performs both tasks correctly 1c. LOC commands: 0=Performs both tasks correctly 2. Best Gaze: 0=normal 3. Visual: 0=No visual loss 4. Facial Palsy: 0=Normal symmetric movement 5a. Motor left arm: 0=No drift, limb holds 90 (or 45) degrees for full 10 seconds 5b. Motor right arm: 0=No drift, limb holds 90 (or 45) degrees for full 10 seconds 6a. motor left le=No drift, limb holds 90 (or 45) degrees for full 10 seconds 6b Motor right le=No drift, limb holds 90 (or 45) degrees for full 10 seconds 7. Limb Ataxia: 0=Absent 8. Sensory: 1=Mild to moderate sensory loss; patient feels pinprick is less sharp or is dull on theaffected side; there is a loss of superficial pain with pinprick but patient is aware He is being touched 9. Best Language: 0=No aphasia, normal 10. Dysarthria: 0=Normal 11. Extinction and Inattention: 0=No abnormality Total: 1 NIHSS1 MRS: 0 (paresthesias baseline) PHQ9: Depression Screening Risk Factor Management: Hypertension target range 130-140/70-80 Lipid range - LDL < 70 and checked every 6 months, fasting Assessment/Plan: Patient Active Problem List Diagnosis Hypertension Neuropathy Rheumatoid arthritis (CMS-HCC) Right-sided lacunar infarction (CMS-HCC) Chronic back pain Sequelae, post-stroke Jordan Aguilar is a right handed 59 y.o. male with past medical history significant for hypertension, hyperlipidemia, rheumatoid arthritis, chronic back pain, and former smoker who was hospitalized in (02/2024) for right thalamic ischemic stroke secondary to small vessel disease from uncontrolled risk factors. He will be maintained on aspirin and statin for stroke prevention. Overall, Jordan has made a good clinical recovery! Right Thalamic Ischemic Stroke -Has made a good clinical recovery and reports back to baseline -etiology small vessel disease from uncontrolled risk factors -Continue aspirin and statin for stroke prevention -Advise strict risk factor control- has quit smoking!! -Follow up with PCP for risk factor management -Follow up in stroke clinic as needed Hyperlipidemia- low fat/low cholesterol diet -Continue statin therapy -Recommend diet and exercise 3. Hypertension- Advise continuing to monitor for target SBP <130 -Continue antihypertensive regimen 4. Chronic Back Pain -Is following up with [facility] neurosurgery -Discussed elective procedures are recommended to be scheduled at least 3 months following stroke. Can send surgical clearance to office In addition I did review the signs/ symptoms of stroke including BE FAST (B) balance issues, (E) acute eye/ vision changes, (F) facial droop, (A) Arm/ leg weakness, (S) speech disturbance and (T) time to call 911 if these symptoms occur. This note was completed using a voice alligator shear operator system. Every effort was made to ensure accuracy; however, inadvertent computerized alligator shear operator errors may be present MARC Crow 04/21/24 1556 documented in this encounterVermont State HospitalVertical Knowledge07-18-2024 Instructions* Patient Instructions* MARC Crow - 04/21/2024 10:00 AM EDT Images from the original note were not included. Patient was evaluated in stroke/ neurovascular clinic today for hospital follow. The following was discussed including: Based on today's evaluation I do recommend: Continue on antiplatelet agent(s): specifically aspirin Continue Lipitor Monitor your blood pressure at home Recommend low fat/cholesterol diet along with exercise as tolerated Follow up neurosurgery and rheumatology Follow up with PCP as directed OK with elective surgeries 3 months after stroke, can send clearance to office Follow up in stroke clinic as needed In addition I did review the signs/ symptoms of stroke including BE FAST (B) balance issues, (E) acute eye/ vision changes, (F) facial droop, (A) Arm/ leg weakness, (S) speech disturbance and (T) time to call 911 if these symptoms occur. Follow up is advised : as needed. I recommend that you sign up for MY CHART so that I can send you test results and communicate otherinformation pertaining to the management of your health care. The instructions to gain access to [employer] are at the bottom of this summary. If you are not signed up for access to MY CHART and have not received notification of ANY test result within 7 days, please call [phone] to leave a request for your results. If you have not beencontacted about your test results, do not assume that your test results are normal. If you need to schedule a test such as a CT scan, Ultrasound, MRI or PET scan, please call [facility] Central Scheduling at [phone]. There are numerous area resources for area stroke and brain aneurysm survivors. To learn more, ask about the FREE Monthly stroke support group or request a stroke support group calendar from the Stroke Clinic. You can also email Stroke Support Group moderator: Katelin Mora at [email or web address]. Stroke survivors, family members, caregivers and friends are ALL WELCOME! * Attachments The following attachments cannot be sent through Care Everywhere. * Recovery after stroke (Nepali) documented in this encounterCity Hospital06-10-2024 NoteRx [facility] per Rheum Consult Agreement. Alyssa Albarran PharmD Outpatient Clinical Pharmacist [facility] [phone] 03/14/24 10:21 AMGreene [facility] Hospital06-06-2024 Miscellaneous Notes* Telephone Encounter - Tommy Yepez - 03/10/2024 1:36 PM EDT Please fax patients : OV Notes (NOT printed) To:Dr. Pool Stover, PCP Fax #: [phone] Phone #: [phone] Who is calling: Ronda at office * Telephone Encounter - Paula Lombardo - 03/10/2024 1:36 PM EDT Faxed included information to [phone] on 03/10/24 at 17:24 - 01/08/[address] Hernandez documented in this encounterCity Hospital06-06-2024 Telephone encounter Note* Telephone Encounter - Tommy Yepez - 03/10/2024 1:36 PM EDT Please fax patients : OV Notes (NOT printed) To:Dr. Pool Stover, PCP Fax #: [phone] Phone #: [phone] Who is calling: Ronda at office [facility] Aligo [id number] Telephone encounter Note* Telephone Encounter - Paula Lombardo - 03/10/2024 1:36 PM EDT Faxed included information to [phone] on 03/10/24 at 17:24 - 01/08/[address] Hernandez [facility] Aligo [id number] Miscellaneous Notes* Telephone Encounter - Michelle Pedersen RN - 03/09/2024 1:06 PM EDT Contact Type: Direct contact - Phone call with patient - general Reason For Call: CN introduction Intervention: CN left message for return call and provided direct line * Telephone Encounter - Michelle Pedersen RN - 03/09/2024 1:06 PM EDT Contact Type: Direct contact - Phone call with patient - general Reason For Call: CN introduction Assessment: Patient left voicemail returning CN's call. Intervention: CN left message returning patient's call. * Telephone Encounter - Michelle Pedersen RN - 03/09/2024 1:06 PM EDT Contact Type: Direct contact - Phone call with patient - general Reason For Call: CN introduction Intervention: CN left another message for return call and provided direct line. * Telephone Encounter - Michelle Pedersen RN - 03/09/2024 1:06 PM EDT Contact Type: Direct contact - Phone call with patient - general Reason for Call: CN introduction. Utfwjctxer-15-vwmw-old male with history rheumatoid arthritis who presented to the hospital with gait disturbance, left-sided weakness, noted to be dropping things from his left hand. Also noted was a facial droop and dysarthria. He did recently have MRI brain which was negative for acute process few weeks ago. Noncontrast CTH was concerning for possible left temporal subacute stroke. Given patient is having left-sided symptoms, does not correlate with imaging findings. Patient was admitted to the hospital for further stroke workup and MRI brain. Patient reports that he is doing a lot better. Patient states his balance is back and he finishedtherapy. BP 132/86. Patient is waiting to hear from our office to schedule follow up appointment. Patient completed his Plavix. Patient does follow a healthy diet and enjoys cycling. Patient reports he has a slight droop in his left lip and occasionally drools. He reports that the left sided weakness is pretty much gone. Patient states his balance is back and his speech is normal. Type of Stroke: R thalamic stroke. Date of Hospitalization: 03/04/2024-03/07/2024. New Medications: ASA and Plavix. Medication Issues: none. Anticoagulation: ASA and he completed the Plavix. Labs: none Testing: none. Equipment: none. Home Care: none Outpatient Therapy: completed Follow Up Appointments: PCP- patient saw. Had MRI of neck and is being referred to neurosurgery Neuro- waiting to hear from our office to schedule. Plan/Goals: continue to take medications as ordered. Keep follow up appointment. Continue to monitor blood pressure. Intervention: CN called patient and received an update Questions: Patient is waiting to hear from neurology office on scheduling follow up appointment. Education:CN reviewed blood pressure parameters and the importance of healthy diet, exercise, and taking medications to reduce risk factors for stoke. Patient voiced understanding. [facility] Education Provided: Patient states he is knowledgeable. Balance (Loss of Balance, Headache, Dizziness), Eyes (Abrupt Vision Changes), Face (Drooping), Arms (Numbness/Weakness Arms/Legs), Speech (Difficulty with Speech), Time (Call 911 Right Away). Patient Verbalizes Understanding. Modifiable Risk Factor Education/Stroke Prevention: CN reviewed. BP-monitor BP Improve Diet-low fat, low salt, low cholesterol diet Increase Activity-patient enjoys cycling Control Cholesterol-follow diet above, take medication as ordered Follow Treatment/Medications as Ordered CN provided direct line to call if any questions or concerns and if any new, returning or worseningsymptoms. Patient verbalized understanding. * Telephone Encounter - Colette Metz CMA - 03/09/2024 1:06 PM EDT Images from the original note were not included. * Telephone Encounter - Sarahi Mojica - 03/09/2024 1:06 PM EDT Called patient and left VM * Telephone Encounter - Sarahi Mojica - 03/09/2024 1:06 PM EDT Patient called in and we were able to schedule an appt documented in this encounterAultman Orrville Hospital [id number] Telephone encounter Note* Telephone Encounter - Michelle Pedersen RN - 03/09/2024 1:06 PM EDT Contact Type: Direct contact - Phone call with patient - general Reason For Call: CN introduction Intervention: CN left message for return call and provided direct line [facility] [id number] Telephone encounter Note* Telephone Encounter - Michelle Pedersen RN - 03/09/2024 1:06 PM EDT Contact Type: Direct contact - Phone call with patient - general Reason For Call: CN introduction Assessment: Patient left voicemail returning CN's call. Intervention: CN left message returning patient's call. [facility] [id number] Telephone encounter Note* Telephone Encounter - Michelle Pedersen RN - 03/09/2024 1:06 PM EDT Contact Type: Direct contact - Phone call with patient - general Reason For Call: CN introduction Intervention: CN left another message for return call and provided direct line. [facility] [id number] Telephone encounter Note* Telephone Encounter - Michelle Pedersen RN - 03/09/2024 1:06 PM EDT Contact Type: Direct contact - Phone call with patient - general Reason for Call: CN introduction. [id number]-old male with history rheumatoid arthritis who presented to the hospital with gait disturbance, left-sided weakness, noted to be dropping things from his left hand. Also noted was a facial droop and dysarthria. He did recently have MRI brain which was negative for acute process few weeks ago. Noncontrast CTH was concerning for possible left temporal subacute stroke. Given patient is having left-sided symptoms, does not correlate with imaging findings. Patient was admitted to the hospital for further stroke workup and MRI brain. Patient reports that he is doing a lot better. Patient states his balance is back and he finishedtherapy. BP 132/86. Patient is waiting to hear from our office to schedule follow up appointment. Patient completed his Plavix. Patient does follow a healthy diet and enjoys cycling. Patient reports he has a slight droop in his left lip and occasionally drools. He reports that the left sided weakness is pretty much gone. Patient states his balance is back and his speech is normal. Type of Stroke: R thalamic stroke. Date of Hospitalization: 03/04/2024-03/07/2024. New Medications: ASA and Plavix. Medication Issues: none. Anticoagulation: ASA and he completed the Plavix. Labs: none Testing: none. Equipment: none. Home Care: none Outpatient Therapy: completed Follow Up Appointments: PCP- patient saw. Had MRI of neck and is being referred to neurosurgery Neuro- waiting to hear from our office to schedule. Plan/Goals: continue to take medications as ordered. Keep follow up appointment. Continue to monitor blood pressure. Intervention: CN called patient and received an update Questions: Patient is waiting to hear from neurology office on scheduling follow up appointment. Education:CN reviewed blood pressure parameters and the importance of healthy diet, exercise, and taking medications to reduce risk factors for stoke. Patient voiced understanding. [facility] Education Provided: Patient states he is knowledgeable. Balance (Loss of Balance, Headache, Dizziness), Eyes (Abrupt Vision Changes), Face (Drooping), Arms (Numbness/Weakness Arms/Legs), Speech (Difficulty with Speech), Time (Call 911 Right Away). Patient Verbalizes Understanding. Modifiable Risk Factor Education/Stroke Prevention: CN reviewed. BP-monitor BP Improve Diet-low fat, low salt, low cholesterol diet Increase Activity-patient enjoys cycling Control Cholesterol-follow diet above, take medication as ordered Follow Treatment/Medications as Ordered CN provided direct line to call if any questions or concerns and if any new, returning or worseningsymptoms. Patient verbalized understanding. [facility] [id number] Telephone encounter Note* Telephone Encounter - Colette Metz CMA - 03/09/2024 1:06 PM EDT Images from the original note were not included. [facility]06-05-2024 Telephone encounter Note* Telephone Encounter - Sarahi Mojica - 03/09/2024 1:06 PM EDT Called patient and left VM [facility] [employer] [id number] Telephone encounter Note* Telephone Encounter - Sarahi Mojica - 03/09/2024 1:06 PM EDT Patient called in and we were able to schedule an appt [facility] [id number] NoteCalled patient and LVMTCB and let us know whether he was able to receive his medication from [facility]. Kalyn Reese, Evaluation Assistant [facility] [id number] [facility]06-05-2024 NotePA Approved through 03/14/2025. [facility]. Rx sent to [facility]. Alyssa Albarran PharmD Outpatient Clinical Pharmacist [facility] [phone] 03/14/24 10:09 [facility]06-05-2024 NotePA renewal submitted. Zaida Núñez CPhT [facility] 02/21/25 11:45 [facility]06-05-2024 NoteSpecialty Pharmacy Note: Isabelle Supervising Physician & Clinic:?? Regulo Henry MD at [facility] Rheumatology Jordan Aguilar is a 58 y.o. year old male patient with PMH of: Ankylosing Spondylitis with Sacroilitis and Seropositive Rheumatoid Arthritis. Patient Active Problem List Diagnosis Chronic back pain Corticosteroids adverse reaction Family history of rheumatoid arthritis Idiopathic peripheral neuropathy Injury of lung Lumbar post-laminectomy syndrome Numbness of foot Polyarthropathy Rheumatoid arthritis ([facility]/HCC) Ankylosing spondylitis of multiple sites in spine ([facility]) Low back pain Neuropathy Screening-pulmonary TB Encounter [...] will submit PA in CMM. Alyssa Albarran, PharmD Outpatient Clinical Pharmacist [facility] [phone] 03/09/24 10:[facility] NotePA approved -02/21/2026. Patient gets medication through [facility]. Zaida Núñez, [facility] 02/21/25 11:58 [facility] NotePA submitted in CMM- awaiting determination. Alyssa Albarran PharmD Outpatient Clinical Pharmacist [facility] [phone] 03/14/24 9:41 [facility] NotePt. Received medication from [facility] and has no further questions. Will no longer follow up. Herman Mace, [facility] 03/22/24 11:12 [facility] NoteLVM for patient to call back to see if he has received med from [facility]. Wesley Tomlinson , [facility] 03/17/24 4:27 [facility] Miscellaneous Notes* Telephone Encounter - Adwoa Quiñonez RN - 03/07/2024 10:40 AM EDT FYI: Recent admission at [facility] for CVA. Patient can see local neurology however if patient calls office for appt, can be scheduled with JOSE/Lashawn/Fellow/Yesenia. Right thalamic stroke -As evidenced by paresthesias, left-sided weakness, gait disturbance - MRI brain confirms right thalamic stroke -etiology small-vessel disease secondary to uncontrolled risk factors -patient smokes 1 pack of cigarettes per day increasing risk for small-vessel stroke - hemoglobin A1c is acceptable at 5.7 - lipid profile reveals LDL is 128, recommend initiating atorvastatin 40 mg nightly - recommend strict control of risk factors such as hypertension, ultimately blood pressure below 140 would be goal. Okay to slowly lower blood pressure to normotension - recommend aspirin 81 mg and Plavix 75 mg for 21 days followed by aspirin 81 mg indefinitely - we will need 4-6 week follow-up with Neurology, patient can see Dr. Torres. * Telephone Encounter - Sarahi Mojica - 03/07/2024 10:40 AM EDT Patient called in and we were able to get him scheduled [facility] Telephone encounter Note* Telephone Encounter - Adwoa Quiñonez RN - 03/07/2024 10:40 AM EDT FYI: Recent admission at [facility] for CVA. Patient can see local neurology however if patient calls office for appt, can be scheduled with JOSE/Lashawn/Fellow/Yesenia. Right thalamic stroke -As evidenced by paresthesias, left-sided weakness, gait disturbance - MRI brain confirms right thalamic stroke -etiology small-vessel disease secondary to uncontrolled risk factors -patient smokes 1 pack of cigarettes per day increasing risk for small-vessel stroke - hemoglobin A1c is acceptable at 5.7 - lipid profile reveals LDL is 128, recommend initiating atorvastatin 40 mg nightly - recommend strict control of risk factors such as hypertension, ultimately blood pressure below 140 would be goal. Okay to slowly lower blood pressure to normotension - recommend aspirin 81 mg and Plavix 75 mg for 21 days followed by aspirin 81 mg indefinitely - we will need 4-6 week follow-up with Neurology, patient can see Dr. Torres. [facility] Tele[facility] encounter Note* Telephone Encounter - Sarahi Mojica - 03/07/2024 10:40 AM EDT Patient called in and we were able to get him scheduled [facility]* Encounter Date Diagnosis Assessment Notes Treatment Notes Treatment Clinical Notes Jun, Wellness examination (ICD-10 - Z00.00) [...] due to arterial insufficiency (ICD-10 - N52.01) [employer] Other 03-23-2023 Evaluation note* Encounter Date Diagnosis [...] tobacco use, neurogenic from remote back condition? [employer] Other 08-12-2022 Evaluation note* Encounter Date Diagnosis [...] Tooth abscess home care material was printed [employer] Other 06-08-2018 History general Narrative - Reported* Type Description Date Medical History rheumatoid arthritis Medical History neuropathy Right and Left foot Surgical History Lumbar Back Surgery - fusion 03/12/18 Hospitalization History see surgical history [employer] Other Evaluation noteNo InformationNort [employer] Other Evaluation note* Diagnosis Onset Date Resolution Status Lumbar back pain with radicu lopathy affecting lower extremity acute Lumbar spondylosis acute Rheumatoid arthritis involvi ng both hands with positive rheumatoid factor [facility] Work Phone: Evaluation note* Diagnosis Onset Date Resolution Status Hypertension acute Lumbar spondylosis acute Nicotine dependence acute Numbness and tingling of right arm acute Numbness and tingling of right leg acute Rheumatoid arthritis involvi ng both hands with positive rheumatoid factor acute Right carotid bruit [facility] Work Phone: Evaluation note* Diagnosis Onset Date Resolution Status Hypertension acute Lumbar spondylosis acute Nicotine dependence acute Rheumatoid arthritis involvi ng both hands with positive rheumatoid factor acute Right carotid bruit acute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
[2025-06-22 08:04] LABS: Hematocrit 38.1 % (42.0-54.0); Hemoglobin 13.2 g/dL (14.0-18.0); Immature Granulocytes Abs Auto 0.01 10^3/uL (0.00-0.03); Immature Granulocytes Pct Auto 0.1 % (0.0-0.5); Lymphocytes Absolute Auto 2.2 10^3/uL (1.2-3.8); Mean Corpuscular HGB Conc 34.6 g/dL (29.9-35.2); Mean Corpuscular Hemoglobin 31.1 pg (25.9-34.0); Mean Corpuscular Volume 89.6 fL (80.0-94.0); Platelet Count 167 10^3/uL (150-450); Red Blood Count 4.25 10^6/uL (4.70-6.10); White Blood Count 7.4 10^3/uL (4.0-11.0)
[2025-06-22 11:22] LABS: Alanine Aminotransferase 24 U/L (16-63); Albumin Globulin Ratio 1.1; Albumin Level 3.7 g/dL (3.4-5.0); Alkaline Phosphatase 109 U/L (46-116); Anion Gap 12.0; Aspartate Amino Transferase 15 U/L (15-37); Blood Urea Nitrogen 11.0 mg/dL (7.0-18.0); Calcium 9.0 mg/dL (8.5-10.1); Carbon Dioxide 27.4 mmol/L (21.0-32.0); Chloride 105 mmol/L (98-107); Cholesterol 110 mg/dL (<=200); Creatine Kinase 93 U/L (39-308); Estimated GFR (African America >60 (>=60 mL/min/1.73m^2); Estimated GFR (Non-African Ame >60 (>=60 mL/min/1.73m^2); Globulin 3.5 g/dL; Glucose 109 mg/dL (74-106); HDL Cholesterol 47 mg/dL (40-60); Magnesium 2.2 mg/dL (1.8-2.4); Potassium 4.4 mmol/L (3.5-5.1); Sodium 140 mmol/L (136-145); Thyroid Stimulating Hormone 0.808 uIU/mL (0.358-3.740); Total Protein 7.2 g/dL (6.4-8.2); Triglycerides 38 mg/dL (<=150); VLDL CHOLESTEROL 7.6 mg/dL
== END 2025-06-22 07:42 | disposition home or self-care (01) ==
LOC: LAB 07:44
PROVIDERS: PCP Internal Medicine; Visit Provider Internal Medicine
DX: E78.00 Pure hypercholesterolemia, unspecified (principal); I67.2 Cerebral atherosclerosis; I10 Essential (primary) hypertension; R25.3 Fasciculation; Z12.5 Encounter for screening for malignant neoplasm of prostate; R53.83 Other fatigue
CPT/HCPCS: 36415; 80053; 80061; 82550; 83735; 84443; 85025; G0103